=== PATIENT | female | born 1930 | race Asian ===

== ENCOUNTER 2018-07-17 06:11 | Inpatient (IN) | payer MEDICARE, OTHER ==
[2018-07-17] VITALS (8 sets, daily range): BP systolic 113–191; BP diastolic 70–116
[~2018-07-17] VITALS: Ht 167.6 cm; Wt 69.9 kg
--- NOTE | 2018-07-17 06:23 | NUR ---
ED Nurse Note: Pt was BIBA from SNF. C/O SOB today. Pt is a/o x 3. pt is on none brweathing mask 8L/min with O2 sat @ 94 %. IV at right FA/18 G. incontinent. BP 191/92. Dr. Galicia at bed side, waitng for orders.
[2018-07-17] MEDS ORDERED: Solu-MEDROL 125mg Inj IVP ONE (06:30)
[2018-07-17] MEDS ORDERED: TENORMIN100 MG ORAL (06:32)
[2018-07-17] MEDS ORDERED: LOSARTAN POTAS100 MG ORAL (06:32)
[2018-07-17] MEDS ORDERED: ASPIR 8181 MG ORAL (06:32)
[2018-07-17] MEDS ORDERED: FUROSEMIDE20 M1 ORAL (06:32)
[2018-07-17] MEDS ORDERED: LIPITOR20 MG ORAL (06:32)
[2018-07-17] MEDS ORDERED: AMIODARONE HCL100 MG ORAL (06:32)
[2018-07-17] MEDS ORDERED: TAMSULOSIN HCL0.4 MG ORAL (06:32)
[2018-07-17] MEDS ORDERED: LATANOPROST2.5 ML BOTH EYES (06:32)
[2018-07-17] MEDS ORDERED: DORZOLAMIDE 2%10 ML OP (06:32)
[2018-07-17] MEDS ORDERED: COLACE100 MG ORAL (06:32)
[2018-07-17] MEDS ORDERED: VITAMIN D1000 UNI1 ORAL (06:32)
[2018-07-17] MEDS ORDERED: RANEXA500 MG ORAL (06:32)
[2018-07-17] MEDS ORDERED: URECHOLINE50 MG ORAL (06:32)
--- NOTE | 2018-07-17 06:39 | Emergency Room Report ---
History of Present Illness General Chief Complaint: Dyspnea/Respdistress Source: Patient Present Illness HPI Patient presents emergency department today complaint cough congestion shortness of breath. Patient was at a [facility]. Patient apparently was admitted there because of a fall and possible fractures. Patient had failure to thrive. Patient was at [facility]. Patient symptoms apparently progressively became worse last night. Patient has limited Occitan speaking abilities. No other complaints are noted. Symptoms noted to be severe.No other modifying factors. No other associated signs and symptoms. No other complaints were noted. Allergies: Coded Allergies: No Known Allergies (Unverified , 07/17/18) Patient History Past Medical History: CAD, CHF, AFib Past Surgical History: other - Abdominal surgery Social History Narrative stays at a [facility] Last Menstrual Period: PEARL Now: No Reviewed Nursing Documentation: PMH: Agreed; PSxH: Agreed Nursing Documentation-PMH Hx Cardiac Problems: Yes - afib, CHF, PVD, CAD Hx Hypertension: Yes Review of Systems All Other Systems: limited - Patient poor histori Physical Exam Vital Signs Date Time Temp Pulse Resp B/P (MAP) Pulse Ox O2 Delivery O2 Flow Rate FiO2 07/17/18 06:12 98.1 87 24 188/108 98 Non-Rebreather 8.0 Sp02 EP Interpretation: reviewed, normal General Appearance: alert, moderate distress Head: atraumatic Eyes: bilateral eye normal inspection ENT: normal ENT inspection, hearing grossly normal, normal voice Neck: normal inspection, full range of motion, supple, no bony tend Respiratory: respiratory distress, decreased breath sounds, accessory muscle use, wheezing, expiration, inspiration Cardiovascular #1: regular rate, rhythm, no edema Gastrointestinal: normal inspection, normal bowel sounds, non tender, soft, no guarding, no hernia Genitourinary: no CVA tenderness Musculoskeletal: normal inspection, normal range of motion Neurologic: alert, responsive, other - Limited exam Psychiatric: depressed affect Skin: normal inspection, normal color, no rash Procedures Critical Care Time Critical Care Time Patient had a critical medical condition which untreated could potentially result in life or limb threatening injury. Total critical care time excluding procedures was approximately 45 minutes. Medical Decision Making Diagnostic Impression: Primary Impression: Respiratory distress Additional Impression: Pneumonia ER Course Patient presents emergency department today complaining of shortness of breath. Differential diagnoses include acute pneumonia, CHF, acute coronary syndrome, pneumothorax, asthma, COPD flare, just to name a few. Patient's laboratory workup shows evidence of CHF. Chest x-ray shows evidence of pneumonia. Because of patient's severe distress patient was placed on BiPAP with improvement in symptoms. Blood cultures are obtained and patient was started on IV antibiotics. Case was discussed with Dr. Lars Rebolledo who saw the patient emergency department. Patient will be admitted to the [facility] for further treatment. Labs Test 07/17/18 06:42 07/17/18 07:05 White Blood Count 9.8 K/UL (4.8-10.8) Red Blood Count 3.02 M/UL (4.20-5.40) Hemoglobin 9.3 G/DL (12.0-16.0) Hematocrit 29.6 % (37.0-47.0) Mean Corpuscular Volume 98 FL (80-99) Mean Corpuscular Hemoglobin 30.7 PG (27.0-31.0) Mean Corpuscular Hemoglobin Concent 31.4 G/DL (32.0-36.0) Red Cell Distribution Width 16.0 % (11.6-14.8) Platelet Count 177 K/UL (150-450) Mean Platelet Volume 6.2 FL (6.5-10.1) Neutrophils (%) (Auto) % (45.0-75.0) Lymphocytes (%) (Auto) % (20.0-45.0) Monocytes (%) (Auto) % (1.0-10.0) Eosinophils (%) (Auto) % (0.0-3.0) Basophils (%) (Auto) % (0.0-2.0) Sodium Level 145 MMOL/L (136-145) Potassium Level 3.4 MMOL/L (3.5-5.1) Chloride Level 109 MMOL/L (98-107) Carbon Dioxide Level 29 MMOL/L (21-32) Anion Gap 8 mmol/L (5-15) Blood Urea Nitrogen 19 mg/dL (7-18) Creatinine 0.6 MG/DL (0.55-1.30) Estimat Glomerular Filtration Rate mL/min (>60) Glucose Level 147 MG/DL (74-106) Lactic Acid Level 1.30 mmol/L (0.4-2.0) Calcium Level 8.0 MG/DL (8.5-10.1) Total Bilirubin 0.4 MG/DL (0.2-1.0) Aspartate Amino Transf (AST/SGOT) 30 U/L (15-37) Alanine Aminotransferase (ALT/SGPT) 17 U/L (12-78) Alkaline Phosphatase 174 U/L (46-116) Troponin I 0.015 ng/mL (0.000-0.056) Pro-B-Type Natriuretic Peptide 4699 pg/mL (0-125) Total Protein 5.5 G/DL (6.4-8.2) Albumin 2.1 G/DL (3.4-5.0) Globulin 3.4 g/dL Albumin/Globulin Ratio 0.6 (1.0-2.7) Lipase 105 U/L (73-393) Urine Color Yellow Urine Appearance Clear Urine pH 7 (4.5-8.0) Urine Specific Seale 1.005 (1.005-1.035) Urine Protein 1+ (NEGATIVE) Urine Glucose (UA) Negative (NEGATIVE) Urine Ketones Negative (NEGATIVE) Urine Blood Negative (NEGATIVE) Urine Nitrite Negative (NEGATIVE) Urine Bilirubin Negative (NEGATIVE) Urine Urobilinogen Normal MG/DL (0.0-1.0) Urine Leukocyte Esterase 2+ (NEGATIVE) Urine RBC 0 /HPF (0 - 2) Urine WBC 10-15 /HPF (0 - 2) Urine Squamous Epithelial Cells Few /LPF (NONE/OCC) Urine Bacteria Occasional /HPF (NONE) Urine Yeast Few /HPF (NONE) EKG Diagnostic Results Rate: normal Rhythm: NSR ST Segments: other - Nonspecific ST segment changes. Rhythm Strip Diag. Results EP Interpretation: yes Rate: 82 Rhythm: NSR, no PVC's, no ectopy Chest X-Ray Diagnostic Results Chest X-Ray Diagnostic Results : Chest X-Ray Ordered: Yes # of Views/Limited/Complete: 1 View Indication: Shortness of Breath Interpretation: no pneumothorax, other - right infiltrate, cardiomegaly Impression: Other - pneumonia, mild chf Electronically Signed by: Electronically signed by Jay Leigh MD Last Vital Signs Date Time Temp Pulse Resp B/P (MAP) Pulse Ox O2 Delivery O2 Flow Rate FiO2 07/17/18 06:12 98.1 87 24 188/108 98 Non-Rebreather 8.0 Status: improved Disposition: ADMITTED INPATIENT Condition: Serious Jay Leigh MD Jul 17, 2018 06:39
--- NOTE | 2018-07-17 06:50 | NUR ---
ED Nurse Note: Blood sample collected and sent to Lab.
--- NOTE | 2018-07-17 06:56 | NUR ---
ED Nurse Note: Meds given as ordered.
--- NOTE | 2018-07-17 07:00 | NUR ---
ED Nurse Note: Urine sample collected and sent to Lab.
[2018-07-17] MEDS: Albuterol ud Inhalation HHN SCH ×3 (07:05→07:28)
[2018-07-17] MEDS: Ipratropium 0.02% Inh Soln 2.5ml UD HHN SCH ×3 (07:05→07:28)
[2018-07-17 07:06] LABS: HEMATOCRIT 29.6 % (37.0-47.0); HEMOGLOBIN 9.3 G/DL (12.0-16.0); MEAN CORPUSCULAR VOLUME 98 FL (80-99); PLATELET COUNT 177 K/UL (150-450); RED BLOOD COUNT 3.02 M/UL (4.20-5.40); WHITE BLOOD COUNT 9.8 K/UL (4.8-10.8)
--- NOTE | 2018-07-17 07:12 | NUR ---
HAND-OFF: Report given to Tyree VIDAL/ ANTOINE for continue care. Pt is A/O X 3-4.
[2018-07-17 07:20] LABS: ANION GAP 8 mmol/L (5-15); BLOOD UREA NITROGEN 19 mg/dL (7-18); CARBON DIOXIDE 29 MMOL/L (21-32); CHLORIDE 109 MMOL/L (98-107); CREATININE 0.6 MG/DL (0.55-1.30); POTASSIUM 3.4 MMOL/L (3.5-5.1); SODIUM 145 MMOL/L (136-145)
[2018-07-17 07:26] LABS: ALANINE AMINOTRANSFERASE 17 U/L (12-78); ALBUMIN 2.1 G/DL (3.4-5.0); ALBUMIN/GLOBULIN RATIO 0.6 (1.0-2.7); ALKALINE PHOSPHATASE 174 U/L (46-116); ASPARTATE AMINO TRANSFERASE 30 U/L (15-37); BILIRUBIN,TOTAL 0.4 MG/DL (0.2-1.0)
[2018-07-17 07:29] LABS: APPEARANCE,URINE CLEAR; BILIRUBIN, URINE NEGATIVE (NEGATIVE); GLUCOSE, URINE (UA) NEGATIVE (NEGATIVE); KETONES,URINE NEGATIVE (NEGATIVE); LEUKOCYTE ESTERASE ,URINE 2+ (NEGATIVE); NITRITE,URINE NEGATIVE (NEGATIVE); PH,URINE 7 (4.5-8.0); PROTEIN,URINE 1+ (NEGATIVE); UROBILINOGEN,URINE NORMAL MG/DL (0.0-1.0)
--- NOTE | 2018-07-17 07:36 | NUR ---
ED Nurse Note: Received patient resting in bed. pt, Irish speaker, aao x4, on non-breather mast with 10L/min with 100% saturation. skin clean and intact but Rt buttock pressure ulcer stage 2 and Lt buttock stage 1 noted. pt was explained that she will be transferred to SDU and agreed with it.
[2018-07-17 07:40] LABS: COLOR,URINE YELLOW
--- NOTE | 2018-07-17 08:00 | NUR ---
ED Nurse Note: Pt is on Bi-pap setting 27/09, 60% by RT
--- NOTE | 2018-07-17 08:14 | NUR ---
ED Nurse Note: Called pharmacy to verify medications order. per pharmacy, the medications orders are for SDU so we should hold them until patient goes up to SDU floor.
--- NOTE | 2018-07-17 08:20 | NUR ---
ED Nurse Note: Nurse verified with ERMD that pt has new unverified medications orders. ERMD was aware of it and ordered new IV ATB for ER and it was initiated.
[2018-07-17] MEDS ORDERED: Azithromycin 500 MG in D5W 275 ML IVPB ONE (08:30)
[2018-07-17] MEDS ORDERED: Piperacillin/Tazobactam 4.5 GM in NS 110 ML IVPB ONE (08:30)
--- NOTE | 2018-07-17 09:09 | NUR ---
ED Nurse Note: Son at bedside. son informed about pt's condition and transferring.
--- NOTE | 2018-07-17 09:39 | NUR ---
NURSE NOTES:WOUND CARE NOTES:Pt presented on admission with DTPI sacrum extending down to R and L lower buttocks with (2) openings at R of sacral wound. Base of wound indurated, maroon in colour with red tinged borders . Both openings beefy red in colour with minimal serosanguineous exudate .No odor noted. Pt verbalized tenderness when sacral area minimally palpated. Non-blanchable erythema without induration noted periwound.(L)14.5cm x (W)11cm. Both heels are fluctuant with non-blanchable erythema. Pt verbalized tenderness when both heels are minimally palpated. Pt is alert and has been educated on wound prevention. Pt encouraged to frequently reposition side to side at least hourly. Tx.Plan:Apply Triad Paste to Sacrum/ buttocks .Cover Sacral area with Optifoam drsg .Change every 3 days and prn. Apply Cavilon Skin Barrier to both heels. Cover each heel with Optifoam drsg.Change every 7 days and prn. Encourage and assist with repositioning at least every 2hours or as tolerated. Off-load heels with Pillow. APM/ANA PAULA mattress.
--- NOTE | 2018-07-17 11:30 | NUR ---
ED Nurse Note: Report given to ANTOINE Thomason.
--- NOTE | 2018-07-17 12:22 | Diagnostic Imaging Report ---
Indication: Cough Technique: One view of the chest Comparison: none Findings: Heart is enlarged. The aorta is elongated tortuous and calcified. There are granulomatous calcifications projected in the mediastinum. There is haziness of the right lung base, likely pleural fluid. The left hemidiaphragm is obscured Impression: Cardiomegaly Suspect right-sided pleural effusion Left basilar opacification, likely pleural fluid and/or parenchymal consolidation
--- NOTE | 2018-07-17 12:24 | NUR ---
ED Nurse Note: Pt transferred to SDU with 1 integration technician, 1 RN, 1 RT in stable condition.
--- NOTE | 2018-07-17 12:45 | History and Physical Report ---
DATE OF ADMISSION: 07/17/2018 CHIEF COMPLAINT: Shortness of breath. HISTORY OF PRESENT ILLNESS: The patient is an 88-year-old female. She has a history of atrial fibrillation, vertebral compression fractures, ischemic cardiomyopathy, PVD, and CHF. She was transferred from a [facility] facility with complaints of shortness of breath. On evaluation in the emergency room, the patient was noted to be wheezing and tachypneic. She was started on breathing treatments. She was given supplemental oxygen. Her blood pressure was elevated at 191. She received additional dose of intravenous steroids. Currently, she is more comfortable. Blood pressure remains markedly elevated though. PAST MEDICAL HISTORY: As above. PAST SURGICAL HISTORY: None. CURRENT MEDICATIONS: Reconciled and reviewed. ALLERGIES: None. FAMILY HISTORY: None. SOCIAL HISTORY: There is no known history of tobacco, ethanol, or drugs. REVIEW OF SYSTEMS: GENERAL: No fever or chills. HEENT: No headaches or visual changes. CARDIOPULMONARY: Positive chest pain and shortness of breath. Positive tightness. GASTROINTESTINAL: No nausea or vomiting. GENITOURINARY: No urgency or frequency. MUSCULOSKELETAL: No joint pain or swelling. NEUROLOGIC: No evidence of seizures. PHYSICAL EXAMINATION: VITAL SIGNS: Temperature 98, pulse 83, respirations 24, blood pressure 191/92, and the patient is saturating 98% on non-rebreather. GENERAL: The patient well-developed, no apparent distress. There is some slight accessory muscle use. The patient appears comfortable. NECK: Supple. HEART: Regular rate and rhythm. LUNGS: Significant for bilateral wheezes with poor air movement. . ABDOMEN: Soft, nontender, and nondistended. EXTREMITIES: Without clubbing, cyanosis, or edema. LABORATORY AND DIAGNOSTIC DATA: Urine is pending. White count was 10, hemoglobin 9.3, hematocrit 29, and platelets of 177. Sodium 145, potassium 3.4, chloride 109, bicarb 29, BUN 19, creatinine 0.6. Troponin is 0.015. Natriuretic peptide level was 4700. X-ray results are pending. EKG showed normal sinus rhythm. ASSESSMENT: This is an elderly female with complaints of shortness of breath suspect secondary to asthma exacerbation, cannot rule out some component of congestive heart failure. PROBLEM LIST: 1. Asthma exacerbation. 2. CHF exacerbation. 3. Rule out acute coronary syndrome. 4. Atrial fibrillation. 5. Hypertensive urgency. 6. History of hyperlipidemia and hypertensive heart disease. PLAN: Continue steroid. Admit to monitored bed. Intravenous steroids. Respiratory treatments. Empiric antibiotics. Pulmonary and Cardiology consultations. Titrate antihypertensive regimen. The patient's status is currently guarded. Lars Rebolledo M.D. DR: EDGAR JOB#: [id number] CC:
[2018-07-17] MEDS: Bethanechol 25mg Tab ORAL SCH ×2 (13:00→18:00)
[2018-07-17] MEDS: Solu-MEDROL 125mg Inj IVP SCH ×2 (14:48→22:05)
[2018-07-17] MEDS: Albuterol/Ipratropium 3ml neb HHN SCH ×3 (16:11→23:04)
[2018-07-17] MEDS: cefTRIAXone 1 GM in D5W 55 ML IVPB SCH (17:07)
--- NOTE | 2018-07-17 17:18 | Consultation ---
History of Present Illness General Date patient seen: Jul 17, 2018 Chief Complaint: Dyspnea/Respdistress Reason for Consultation: sacral wound Present Illness HPI 88 year old female with multiple medical comorbidities who is a prison resident presented with SOB and congestion. Admitted for medical care and management. On admission noted to have sacral wound. Surgery called to evaluate and assist with care. Patient seen, chart reviewed, patient examined. Allergies: Coded Allergies: No Known Allergies (Unverified , 07/17/18) Medication History Scheduled Amiodarone Hcl (Amiodarone Hcl), 200 MG ORAL DAILY, (Reported) Aspirin* (Aspir 81*), 81 MG ORAL DAILY, (Reported) Atenolol (Tenormin), 50 MG ORAL DAILY, (Reported) Atorvastatin Calcium* (Lipitor*), 20 MG ORAL BEDTIME, (Reported) Bethanechol Chl* (Urecholine*), 50 MG ORAL THREE TIMES A DAY, (Reported) Cholecalciferol (Vitamin D3)* (Vitamin D*), 5,000 UNITS ORAL DAILY, (Reported) Docusate Sodium* (Colace*), 100 MG ORAL DAILY, (Reported) Docusate Sodium* (Colace*), 100 MG ORAL DAILY, (Reported) Furosemide* (Lasix*), 20 MG ORAL DAILY, (Reported) Latanoprost* (Xalatan*), 1 DROP BOTH EYES BEDTIME, (Reported) Losartan Potassium (Losartan Potassium), 100 MG ORAL DAILY, (Reported) Ranolazine* (Ranexa*), 500 MG ORAL EVERY 12 HOURS, (Reported) Tamsulosin Hcl (Tamsulosin Hcl*), 0.4 MG ORAL BEDTIME, (Reported) Miscellaneous Medications Dorzolamide HCl/Pf (Dorzolamide 2% Eye Drop), 10 ML OP, (Reported) Patient History Limited by: medical condition History Provided By: Medical Record, PMD Healthcare decision maker Rodolfo Johansen/Son Resuscitation status Full Code Advanced Directive on File Past Medical/Surgical History Past Medical/Surgical History: (1) Sacral decubitus ulcer (2) SOB (shortness of breath) (3) Respiratory distress (4) Pneumonia (5) Failure to thrive Review of Systems ROS Narrative cannot obtain given medical condition Physical Exam General Appearance: no apparent distress Lines, tubes and drains: peripheral HEENT: mucous membranes moist Neck: normal inspection Respiratory/Chest: no respiratory distress, no accessory muscle use Cardiovascular/Chest: normal rate Abdomen: soft, no organomegaly, no mass Extremities: other Skin Exam: other Neurologic: alert Last 24 Hour Vital Signs Date Time Temp Pulse Resp B/P (MAP) Pulse Ox O2 Delivery O2 Flow Rate FiO2 07/17/18 16:30 45 07/17/18 16:00 Bi-pap 07/17/18 16:00 71 07/17/18 15:15 80 24 97 Facial 60 07/17/18 15:10 88 16 100 Bi-pap 60 07/17/18 15:00 71 16 100 Bi-pap 60 07/17/18 14:14 60 07/17/18 13:20 82 20 99 Facial 60 07/17/18 12:54 100 07/17/18 12:54 Bi-pap 07/17/18 12:30 97.7 77 22 113/73 100 Bi-pap 100 07/17/18 12:22 97.5 77 16 122/70 100 Bi-pap 100 07/17/18 12:22 98.0 77 16 128/70 100 Bi-pap 100 07/17/18 11:00 97.5 77 16 156/77 100 Bi-pap 100 07/17/18 10:46 80 14 100 Facial 100 07/17/18 09:08 98.2 82 17 125/70 100 Bi-pap 100 07/17/18 08:40 88 20 100 Facial 100 07/17/18 08:00 60 07/17/18 07:45 90 20 100 Room Air 21 07/17/18 07:30 98.2 80 24 156/80 100 Non-Rebreather 10.0 07/17/18 07:30 78 24 93 Room Air 21 07/17/18 07:30 88 18 99 Room Air 21 07/17/18 07:30 78 24 Non-Rebreather 10.0 100 07/17/18 07:15 79 22 99 Room Air 21 07/17/18 07:10 82 18 100 Room Air 21 07/17/18 07:00 80 20 Room Air 21 07/17/18 07:00 80 20 100 Room Air 21 07/17/18 06:23 98.1 82 24 191/92 98 Non-Rebreather 8.0 07/17/18 06:23 83 24 Non-Rebreather 8.0 07/17/18 06:12 98.1 87 24 188/108 98 Non-Rebreather 8.0 Intake and Output 07/16/18 07/17/18 19:00 07:00 Intake Total 0 ml Balance 0 ml Intake Oral 0 ml Laboratory Tests Test 07/17/18 06:42 07/17/18 07:05 07/17/18 09:20 White Blood Count 9.8 K/UL (4.8-10.8) Red Blood Count 3.02 M/UL (4.20-5.40) L Hemoglobin 9.3 G/DL (12.0-16.0) L Hematocrit 29.6 % (37.0-47.0) L Mean Corpuscular Volume 98 FL (80-99) Mean Corpuscular Hemoglobin 30.7 PG (27.0-31.0) Mean Corpuscular Hemoglobin Concent 31.4 G/DL (32.0-36.0) L Red Cell Distribution Width 16.0 % (11.6-14.8) H Platelet Count 177 K/UL (150-450) Mean Platelet Volume 6.2 FL (6.5-10.1) L Neutrophils (%) (Auto) % (45.0-75.0) Lymphocytes (%) (Auto) % (20.0-45.0) Monocytes (%) (Auto) % (1.0-10.0) Eosinophils (%) (Auto) % (0.0-3.0) Basophils (%) (Auto) % (0.0-2.0) Differential Total Cells Counted 100 Neutrophils % (Manual) 90 % (45-75) H Lymphocytes % (Manual) 9 % (20-45) L Monocytes % (Manual) 1 % (1-10) Eosinophils % (Manual) 0 % (0-3) Basophils % (Manual) 0 % (0-2) Band Neutrophils 0 % (0-8) Platelet Estimate Adequate Platelet Morphology Normal Hypochromasia 1+ Anisocytosis 1+ Sodium Level 145 MMOL/L (136-145) Potassium Level 3.4 MMOL/L (3.5-5.1) L Chloride Level 109 MMOL/L (98-107) H Carbon Dioxide Level 29 MMOL/L (21-32) Anion Gap 8 mmol/L (5-15) Blood Urea Nitrogen 19 mg/dL (7-18) H Creatinine 0.6 MG/DL (0.55-1.30) Estimat Glomerular Filtration Rate mL/min (>60) Glucose Level 147 MG/DL (74-106) H Lactic Acid Level 1.30 mmol/L (0.4-2.0) Calcium Level 8.0 MG/DL (8.5-10.1) L Total Bilirubin 0.4 MG/DL (0.2-1.0) Aspartate Amino Transf (AST/SGOT) 30 U/L (15-37) Alanine Aminotransferase (ALT/SGPT) 17 U/L (12-78) Alkaline Phosphatase 174 U/L (46-116) H Troponin I 0.015 ng/mL (0.000-0.056) Pro-B-Type Natriuretic Peptide 4699 pg/mL (0-125) H Total Protein 5.5 G/DL (6.4-8.2) L Albumin 2.1 G/DL (3.4-5.0) L Globulin 3.4 g/dL Albumin/Globulin Ratio 0.6 (1.0-2.7) L Lipase 105 U/L (73-393) Urine Color Yellow Urine Appearance Clear Urine pH 7 (4.5-8.0) Urine Specific Browns 1.005 (1.005-1.035) Urine Protein 1+ (NEGATIVE) H Urine Glucose (UA) Negative (NEGATIVE) Urine Ketones Negative (NEGATIVE) Urine Blood Negative (NEGATIVE) Urine Nitrite Negative (NEGATIVE) Urine Bilirubin Negative (NEGATIVE) Urine Urobilinogen Normal MG/DL (0.0-1.0) Urine Leukocyte Esterase 2+ (NEGATIVE) H Urine RBC 0 /HPF (0 - 2) Urine WBC 10-15 /HPF (0 - 2) H Urine Squamous Epithelial Cells Few /LPF (NONE/OCC) Urine Bacteria Occasional /HPF (NONE) Urine Yeast Few /HPF (NONE) H Arterial Blood pH 7.436 (7.350-7.450) Arterial Blood Partial Pressure CO2 41.6 mmHg (35.0-45.0) Arterial Blood Partial Pressure O2 310.9 mmHg (75.0-100.0) H Arterial Blood HCO3 27.4 mmol/L (22.0-26.0) H Arterial Blood Oxygen Saturation 98.7 % (95-100) Arterial Blood Base Excess 2.9 (-2-2) H Mark Test Positive Microbiology Date/Time Source Procedure Growth Status 07/17/18 08:00 Rectum Received Height (Feet): 5 Height (Inches): 6.00 Weight (Pounds): 154 Medications Current Medications Medications (Trade) Dose Ordered Sig/Sukhi Route PRN Reason Start Time Stop Time Status Last Admin Dose Admin Albuterol/ Ipratropium (Albuterol/ Ipratropium) 3 ml Q4HRT HHN 07/17/18 15:00 07/22/18 14:59 07/17/18 16:11 Amiodarone HCl (Cordarone) 200 mg DAILY ORAL 07/18/18 09:00 08/17/18 08:59 Aspirin (Ecotrin) 81 mg DAILY ORAL 07/18/18 09:00 08/17/18 08:59 Atenolol (Tenormin) 50 mg DAILY ORAL 07/18/18 09:00 08/17/18 08:59 Atorvastatin Calcium (Lipitor) 20 mg BEDTIME ORAL 07/17/18 21:00 08/16/18 20:59 Bethanechol Chloride (Urecholine) 50 mg THREE TIMES A DAY ORAL 07/17/18 13:00 08/16/18 12:59 Ceftriaxone Sodium 1 gm/ Dextrose 55 ml @ 110 mls/hr Q24H IVPB 07/17/18 15:00 07/24/18 14:59 07/17/18 17:07 Docusate Sodium (Colace) 100 mg DAILY ORAL 07/18/18 09:00 08/17/18 08:59 Furosemide (Lasix) 20 mg DAILY ORAL 07/18/18 09:00 08/17/18 08:59 Heparin Sodium (Porcine) (Heparin 5000 units/ml) 5,000 units EVERY 12 HOURS SUBQ 07/17/18 21:00 08/16/18 20:59 Latanoprost (Xalatan) 1 drop BEDTIME BOTH EYES 07/17/18 21:00 08/16/18 20:59 Losartan Potassium (Cozaar) 100 mg DAILY ORAL 07/18/18 09:00 08/17/18 08:59 Methylprednisolone Sodium Succinate (Solu-MEDROL) 60 mg EVERY 8 HOURS IVP 07/17/18 14:00 08/16/18 13:59 3/4/19 14:48 Ranolazine (Ranexa ER 500mg) 500 mg EVERY 12 HOURS ORAL 07/17/18 21:00 08/16/18 20:59 Tamsulosin HCl (Flomax) 0.4 mg BEDTIME ORAL 07/17/18 21:00 08/16/18 20:59 Vitamin D (Vitamin D) 5,000 intlu DAILY ORAL 07/18/18 09:00 08/17/18 08:59 Assessment/Plan Problem List: (1) Sacral decubitus ulcer Assessment & Plan: Pt presented on admission with DTPI sacrum extending down to R and L lower buttocks with (2) openings at R of sacral wound. Base of wound indurated, maroon in colour with red tinged borders . Both openings beefy red in colour with minimal serosanguineous exudate .No odor noted. Pt verbalized tenderness when sacral area minimally palpated. Non-blanchable erythema without induration noted periwound.(L)14.5cm x (W)11cm. Both heels are fluctuant with non-blanchable erythema. Pt verbalized tenderness when both heels are minimally palpated. Pt is alert and has been educated on wound prevention. Pt encouraged to frequently reposition side to side at least hourly. Tx.Plan: Apply Triad Paste to Sacrum/ buttocks .Cover Sacral area with Optifoam drsg .Change every 3 days and prn. Apply Cavilon Skin Barrier to both heels. Cover each heel with Optifoam drsg.Change every 7 days and prn. Encourage and assist with repositioning at least every 2hours or as tolerated. Off-load heels with Pillow. APM/ANA PAULA mattress. ICD Codes: L89.159 - Pressure ulcer of sacral region, unspecified stage SNOMED: 130647871 (2) Failure to thrive Assessment & Plan: Hypoalbuminemia Nutritional status poor will need improved nutrition for proper wound healing nutrition consult for goals diet as tolerated encourage oral intake. SNOMED: 67721246 Qualifiers: Qualified Codes: R62.7 - Adult failure to thrive VickeyRob knight Jul 17, 2018 17:18
--- NOTE | 2018-07-17 18:52 | NUR ---
CASE MANAGEMENT: INITIAL REVIEW 88 YO F JUDI FROM [facility] CC: DYSPNEA PMHx: CAD. CHF. A FIB. SI:DYSPNEA. T 98.1 HR 87 RR 24 B/P 188/108 SATS 98% ON 8L/NRB K 3.4 CL 109 BUN 19 GLU 147 ALP 174 BNP 4699 IS: ELADIO NEGRO HHN X1 SOLU MEDROL IV X1 PATIENT ADMITTED TO STEP DOWN UNIT 07/17/2018 @ 0649 DCP: PATIENT TO BE DISCHARGED TO SNF ONCE MEDICALLY CLEARED. PLAN OF CARE: WOUND CARE Continue steroid Respiratory treatments Addendum: 07/17/18 at 2046 by Mirna Fragoso CM INTERQUAL
--- NOTE | 2018-07-17 19:20 | NUR ---
HAND-OFF: Report given to Veena Chopra RN.
--- NOTE | 2018-07-17 19:30 | NUR ---
NURSE NOTES: Received Pt is resting on the bed and family stay at bedside. On BiPAP 15/5 FiO2 45 % and SaO2 99% noted. Denied pain at this time. IV site intact and no sign of infiltration. Pt has multiple bruise on body. Dressing is clean and dry on wound area. Pt has both hearing aids and cell phone and stone breaker. On Quartet mattress and wound management. Changed position. Placed fall precaution. Will continue to care plan.
[2018-07-17] MEDS: Tamsulosin 0.4mg cap ORAL SCH (20:58)
[2018-07-17] MEDS: Latanoprost 0.005% Opth 2.5ml Soln BOTH EYES SCH (20:58)
[2018-07-17] MEDS: Atorvastatin 20mg tab ORAL SCH (20:59)
[2018-07-17] MEDS ORDERED: Ranolazine 500mg tab ORAL SCH (21:00)
[2018-07-17] MEDS: Heparin 5000 units/ml inj SUBQ SCH (21:00)
[2018-07-18] VITALS: BP 140/73
--- NOTE | 2018-07-18 01:01 | NUR ---
HAND-OFF: Report given to ANTOINE Conti. Pt is resting on the bed and no sign of acute distress noted.
--- NOTE | 2018-07-18 01:25 | NUR ---
HAND-OFF: Report given to ANTOINE Colon. Pt is resting on the bed and no sign of acute distress noted.
--- NOTE | 2018-07-18 01:30 | NUR ---
NURSE NOTES: Received patient from ANTOINE [place]. Asleep in bed comfortably. on NC 2L with no respiratory distress noted. o2 saturation 98%.SR on monitor. vs stable. afebrile. no sign of pain at this time. kept skin clean and dry. on Quartet mattress for skin management.keep patient comfortable.
[2018-07-18] MEDS: Albuterol/Ipratropium 3ml neb HHN SCH ×6 (03:05→23:30)
[2018-07-18 04:00] VITALS: BP 142/74
[2018-07-18 04:38] LABS: HEMATOCRIT 27.1 % (37.0-47.0); HEMOGLOBIN 8.4 G/DL (12.0-16.0); MEAN CORPUSCULAR VOLUME 98 FL (80-99); PLATELET COUNT 157 K/UL (150-450); RED BLOOD COUNT 2.76 M/UL (4.20-5.40); RED CELL DISTRIBUTION WIDTH 15.8 % (11.6-14.8); WHITE BLOOD COUNT 5.1 K/UL (4.8-10.8)
--- NOTE | 2018-07-18 05:00 | Consultation ---
DATE OF CONSULTATION: 07/17/2018 CARDIOLOGY CONSULT CONSULTING PHYSICIAN: Lars Rebolledo M.D. REFERRING PHYSICIAN: Zoran Caldwell M.D. REASON: Congestive heart failure. HISTORY OF PRESENT ILLNESS: This is an 88-year-old Sami female residing at a correction facility. She has a history of ischemic cardiomyopathy with congestive heart failure and paroxysmal atrial fibrillation. She is increasingly congested and short of breath early this morning and transferred from her correction facility. She was evaluated in the emergency room and noted to be tachypneic with audible wheezing, elevated blood pressure reading, and evidence of acute congestive heart failure prompting this consultation. PAST MEDICAL HISTORY: Osteoporosis, osteoarthritis, vertebral compression fractures, paroxysmal atrial fibrillation, hypertension, peripheral artery disease, ischemic cardiomyopathy, history of congestive heart failure, and asthma. ALLERGIES: None. MEDICATIONS PRIOR TO ADMISSION: Reviewed and reconciled. FAMILY HISTORY: Not known. SOCIAL HISTORY: No record of prior smoking, alcohol, or substance abuse. REVIEW OF SYSTEMS: No fevers or chills noted. She did receive a flu vaccination this year. No history of diabetes or thyroid disorder. No history of seizures or prior stroke. She does have dementia. She has had some chest discomfort associated with difficulty breathing. She has not had any melena, bright red blood per rectum, nausea, or vomiting. She has not had any dysuria or foul-smelling urine noted. PHYSICAL EXAMINATION: VITAL SIGNS: Afebrile. Blood pressure 191/92, pulse 83, and respiratory rate 24. HEENT: Conjunctivae are pink. Sclerae anicteric. Oropharynx clear. NECK: Supple. Accessory muscle use noted. LUNGS: Coarse breath sounds and rhonchi. CARDIAC: Regular rhythm and rate. Normal S1 and S2 with a fourth heart sound and a 1/6 systolic murmur at the base. ABDOMEN: Soft and nontender. EXTREMITIES: No clubbing, cyanosis, or edema. Decreased capillary refill noted. LABORATORY AND IMAGING DATA: White count 10 and hemoglobin 9.3. BUN 19, creatinine 0.6, sodium 145, potassium 3.4, and bicarb 29. Troponin 0.015. Natriuretic peptide 4700. Chest x-ray with cardiomegaly, pleural effusion on the right, and consolidation on the left. There is a possible lung nodule. EKG reveals sinus rhythm, 82 beats per minute and nonspecific ST-T wave change. IMPRESSION: 1. Acute respiratory failure. 2. Acute bronchospasm. 3. Acute on chronic diastolic congestive heart failure. 4. Pleural effusion. 5. Healthcare-acquired pneumonia. 6. Ischemic and hypertensive cardiomyopathy. 7. Hypertensive urgency. 8. Paroxysmal atrial fibrillation. PLAN: 1. Respiratory hygiene. 2. Possible thoracentesis. 3. Broad-spectrum antimicrobials. 4. Replace electrolytes as needed. 5. Cautious diuresis. 6. Titrate antihypertensives and anti-anginals 7. Aspiration precautions and swallow evaluation. 8. DVT and stress ulcer prophylaxis. 9. No plans for anticoagulation in this age group with poor performance status. 10. Reassess amiodarone therapy since not maintaining sinus rhythm. Zoran Caldwell M.D. DR: VIOLA JOB#: [id number] CC: JENNIFER
[2018-07-18 05:13] LABS: ALANINE AMINOTRANSFERASE 12 U/L (12-78); ALBUMIN/GLOBULIN RATIO 0.6 (1.0-2.7); ALKALINE PHOSPHATASE 148 U/L (46-116); ANION GAP 7 mmol/L (5-15); ASPARTATE AMINO TRANSFERASE 25 U/L (15-37); BILIRUBIN,TOTAL 0.4 MG/DL (0.2-1.0); BLOOD UREA NITROGEN 23 mg/dL (7-18); CARBON DIOXIDE 29 MMOL/L (21-32); CHLORIDE 108 MMOL/L (98-107); CREATININE 0.7 MG/DL (0.55-1.30); POTASSIUM 3.2 MMOL/L (3.5-5.1); SODIUM 144 MMOL/L (136-145)
[2018-07-18] MEDS: Solu-MEDROL 125mg Inj IVP SCH (06:29)
--- NOTE | 2018-07-18 07:00 | NUR ---
NURSE NOTES: Notified Dr. DUFF regarding potassium 3.2. obtained potassium chloride 40meq once. will carry order.
--- NOTE | 2018-07-18 07:31 | NUR ---
HAND-OFF: Report given to JENELLE STOUT RN using SBAR. PATIENT REMAINS STABLE.
--- NOTE | 2018-07-18 07:32 | NUR ---
NURSE NOTES: Received patient in bed. On nasal cannula at 4LPM. Alert, verbal, call light within reach. Will continue plan of care.
--- NOTE | 2018-07-18 07:45 | NUR ---
CASE MANAGEMENT:REVIEW 07/18/18 SI: ACUTE RESP FAILURE AC/CHR CHF. PNEUMONIA 99.2 78 16 142/74 96% ON 2L/NC H/H-8.4/27.1 K-3.2 IS: IV ROCEPHIN Q24 IV SOLUMEDROL Q8HRS DUONEB HHN Q4HRS RTC AMIODARONE PO QD ASA PO QD ATENOLOL PO QD COZAAR PO QD IV LASIX QD K-DUR PO QD : STEP DOWN UNIT [facility]
[2018-07-18 08:00] VITALS: BP 106/73
[2018-07-18] MEDS: Bethanechol 25mg Tab ORAL SCH ×3 (08:20→17:29)
[2018-07-18] MEDS: Vitamin D 1000 IU Tab ORAL SCH (08:20)
[2018-07-18] MEDS: Heparin 5000 units/ml inj SUBQ SCH ×2 (08:25→21:18)
[2018-07-18] MEDS ORDERED: Docusate 100mg cap ORAL SCH (09:00)
--- NOTE | 2018-07-18 09:11 | NUR ---
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 [facility] TO ER CC: DYSPNEA/ RESPIRATORY DISTRESS SI:DYSPNEA VS: BP 188/108, P87, T 98.0, RR 24, SpO2 100 on Bi-pap FiO2 100 RBC 3.02, Hgb 9.3, Hct 29.6, Neutrophils% 90, Lymphocytes% 9, K 3.4, Chloride 109, BUN 19, Ca 8.0, Alk Phos 174, Glucose 147, Total Protein 5.5, Albumin 2.1, Urine WBC 10-15, Urine Protein 1+ CXR Impression: Cardiomegaly Suspect right-sided pleural effusion Left basilar opacification, likely pleural fluid and/or parenchymal consolidation IS:Urecholine Solu-MEDROL Ceftriaxone 110mls/hr Albuterol HHN Heparin Flomax Lipitor K-Dur SDU Status DC plan: Return to [facility]
[2018-07-18] MEDS: Losartan 50mg tab ORAL SCH (09:39)
[2018-07-18] MEDS: Aspirin EC 81mg tab ORAL SCH (09:39)
[2018-07-18] MEDS: Amiodarone 200mg tab ORAL SCH (09:39)
--- NOTE | 2018-07-18 09:40 | General Progress Note ---
Assessment/Plan Problem List: (1) Respiratory distress ICD Codes: R06.03 - Acute respiratory distress SNOMED: 293248274 (2) Pneumonia ICD Codes: J18.9 - Pneumonia, unspecified organism SNOMED: 404341566 (3) SOB (shortness of breath) ICD Codes: R06.02 - Shortness of breath SNOMED: 878724666 (4) Sacral decubitus ulcer ICD Codes: L89.159 - Pressure ulcer of sacral region, unspecified stage SNOMED: 484392722 (5) Failure to thrive SNOMED: 29891849 Status: stable, progressing Assessment/Plan iv abx wean steroids o2 resp rx id eval monitor cxr wound care diuresis per cards Subjective ROS Limited/Unobtainable: No Constitutional: Reports: weakness HEENT: Reports: no symptoms Cardiovascular: Reports: no symptoms Respiratory: Reports: cough, shortness of breath Gastrointestinal/Abdominal: Reports: no symptoms Genitourinary: Reports: no symptoms Neurologic/Psychiatric: Reports: no symptoms Endocrine: Reports: no symptoms Hematologic/Lymphatic: Reports: no symptoms Allergies: Coded Allergies: No Known Allergies (Unverified , 07/17/18) All Systems: reviewed and negative except above Subjective better today. decreased sob. getting cleaned. cxr with basilar opacity and pleural effusion. trop slightly higher. no chest pain remains on iv steroids. Objective Last 24 Hour Vital Signs Date Time Temp Pulse Resp B/P (MAP) Pulse Ox O2 Delivery O2 Flow Rate FiO2 07/18/18 08:00 75 13 100 Nasal Cannula 3.0 32 07/18/18 08:00 97.5 89 22 106/73 97 Nasal Cannula 2.0 45 07/18/18 07:50 76 12 96 Nasal Cannula 3.0 32 07/18/18 04:00 2.0 07/18/18 04:00 Nasal Cannula 2.0 07/18/18 04:00 99.2 86 16 142/74 96 Nasal Cannula 2.0 45 07/18/18 04:00 78 07/18/18 03:12 72 17 100 Nasal Cannula 3.0 32 07/18/18 03:05 69 17 98 Nasal Cannula 3.0 32 07/18/18 00:00 45 07/18/18 00:00 73 07/18/18 00:00 Bi-pap 07/18/18 00:00 97.5 74 18 140/73 99 Bi-pap 45 07/17/18 23:12 77 16 99 Nasal Cannula 4.0 36 07/17/18 23:05 72 16 100 Nasal Cannula 3.0 32 07/17/18 20:00 Bi-pap 07/17/18 20:00 76 07/17/18 20:00 98.0 74 18 125/75 99 Bi-pap 45 07/17/18 19:34 72 16 100 Bi-pap 40 07/17/18 19:24 70 16 100 Facial 40 07/17/18 19:23 69 16 100 Bi-pap 40 07/17/18 17:00 76 24 98 Facial 45 07/17/18 16:30 45 07/17/18 16:00 Bi-pap 07/17/18 16:00 71 07/17/18 16:00 97.9 78 18 146/116 100 Bi-pap 45 07/17/18 15:15 80 24 97 Facial 60 07/17/18 15:10 88 16 100 Bi-pap 60 07/17/18 15:00 71 16 100 Bi-pap 60 07/17/18 14:14 60 07/17/18 13:20 82 20 99 Facial 60 07/17/18 12:54 100 07/17/18 12:54 Bi-pap 07/17/18 12:30 97.7 77 22 113/73 100 Bi-pap 100 07/17/18 12:22 97.5 77 16 122/70 100 Bi-pap 100 07/17/18 12:22 98.0 77 16 128/70 100 Bi-pap 100 07/17/18 11:00 97.5 77 16 156/77 100 Bi-pap 100 07/17/18 10:46 80 14 100 Facial 100 Intake and Output 07/17/18 07/18/18 19:00 07:00 Intake Total 440 ml 200 ml Output Total 250 ml Balance 190 ml 200 ml Intake Oral 0 ml 200 ml IV Total 440 ml Output Urine Total 250 ml # Voids 1 Laboratory Tests 07/18/18 03:45: White Blood Count 5.1, Red Blood Count 2.76L, Hemoglobin 8.4L, Hematocrit 27.1L , Mean Corpuscular Volume 98, Mean Corpuscular Hemoglobin 30.4, Mean Corpuscular Hemoglobin Concent 31.0L, Red Cell Distribution Width 15.8H, Platelet Count 157, Mean Platelet Volume 5.9L, Neutrophils (%) (Auto) , Lymphocytes (%) (Auto) , Monocytes (%) (Auto) , Eosinophils (%) (Auto) , Basophils (%) (Auto) , Sodium Level 144, Potassium Level 3.2L, Chloride Level 108H, Carbon Dioxide Level 29, Anion Gap 7, Blood Urea Nitrogen 23H, Creatinine 0.7, Estimat Glomerular Filtration Rate , Glucose Level 147H, Calcium Level 8.0L , Magnesium Level 1.9, Total Bilirubin 0.4, Aspartate Amino Transf (AST/SGOT) 25 , Alanine Aminotransferase (ALT/SGPT) 12, Alkaline Phosphatase 148H, Troponin I 0.048, Total Protein 5.2L, Albumin 2.0L, Globulin 3.2, Albumin/Globulin Ratio 0.6L, Thyroid Stimulating Hormone (TSH) 0.348L Height (Feet): 5 Height (Inches): 6.00 Weight (Pounds): 154 General Appearance: WD/WN, alert Neck: supple Cardiovascular: normal rate, regular rhythm Respiratory/Chest: chest wall non-tender, crackles/rales, rhonchi - bilaterally Abdomen: normal bowel sounds, non tender, no organomegaly Edema: no edema noted Arm (L), no edema noted Arm (R), no edema noted Leg (L), no edema noted Leg (R), no edema noted Pedal (L), no edema noted Pedal (R), no edema noted Generalized Neurologic: alert Lars Rebolledo MD Jul 18, 2018 09:40
[2018-07-18 12:00] VITALS: BP 109/63
--- NOTE | 2018-07-18 12:34 | Surgery Progress Note ---
Surgery Progress Note Subjective Additional Comments no acute events. resting comfortable. pending nutrition eval Objective Last 24 Hour Vital Signs Date Time Temp Pulse Resp B/P (MAP) Pulse Ox O2 Delivery O2 Flow Rate FiO2 07/18/18 12:00 Nasal Cannula 4.0 07/18/18 12:00 97.9 87 24 109/63 98 Nasal Cannula 4.0 07/18/18 11:12 92 18 99 Nasal Cannula 4.0 36 07/18/18 11:03 82 12 97 Nasal Cannula 4.0 36 07/18/18 09:40 75 106/73 07/18/18 09:39 106/73 07/18/18 08:00 75 13 100 Nasal Cannula 3.0 32 07/18/18 08:00 97.5 89 22 106/73 97 Nasal Cannula 2.0 45 07/18/18 08:00 Nasal Cannula 4.0 07/18/18 07:50 76 12 96 Nasal Cannula 3.0 32 07/18/18 07:27 76 07/18/18 04:00 2.0 07/18/18 04:00 Nasal Cannula 2.0 07/18/18 04:00 99.2 86 16 142/74 96 Nasal Cannula 2.0 45 07/18/18 04:00 78 07/18/18 03:12 72 17 100 Nasal Cannula 3.0 32 07/18/18 03:05 69 17 98 Nasal Cannula 3.0 32 07/18/18 00:00 45 07/18/18 00:00 73 07/18/18 00:00 Bi-pap 07/18/18 00:00 97.5 74 18 140/73 99 Bi-pap 45 07/17/18 23:12 77 16 99 Nasal Cannula 4.0 36 07/17/18 23:05 72 16 100 Nasal Cannula 3.0 32 07/17/18 20:00 Bi-pap 07/17/18 20:00 76 07/17/18 20:00 98.0 74 18 125/75 99 Bi-pap 45 07/17/18 19:34 72 16 100 Bi-pap 40 07/17/18 19:24 70 16 100 Facial 40 07/17/18 19:23 69 16 100 Bi-pap 40 07/17/18 17:00 76 24 98 Facial 45 07/17/18 16:30 45 07/17/18 16:00 Bi-pap 07/17/18 16:00 71 07/17/18 16:00 97.9 78 18 146/116 100 Bi-pap 45 07/17/18 15:15 80 24 97 Facial 60 07/17/18 15:10 88 16 100 Bi-pap 60 07/17/18 15:00 71 16 100 Bi-pap 60 07/17/18 14:14 60 07/17/18 13:20 82 20 99 Facial 60 07/17/18 12:54 100 07/17/18 12:54 Bi-pap I&O Intake and Output 07/17/18 07/18/18 18:59 06:59 Intake Total 385 ml 255 ml Output Total 250 ml Balance 135 ml 255 ml Intake Oral 0 ml 200 ml IV Total 385 ml 55 ml Output Urine Total 250 ml # Voids 1 Dressing: dry Wound: clean Drains: none Cardiovascular: RSR Respiratory: clear Abdomen: soft, flat, non-tender, non-distended Extremities: no cyanosis, other Laboratory Tests Test 07/18/18 03:45 White Blood Count 5.1 K/UL (4.8-10.8) Red Blood Count 2.76 M/UL (4.20-5.40) L Hemoglobin 8.4 G/DL (12.0-16.0) L Hematocrit 27.1 % (37.0-47.0) L Mean Corpuscular Volume 98 FL (80-99) Mean Corpuscular Hemoglobin 30.4 PG (27.0-31.0) Mean Corpuscular Hemoglobin Concent 31.0 G/DL (32.0-36.0) L Red Cell Distribution Width 15.8 % (11.6-14.8) H Platelet Count 157 K/UL (150-450) Mean Platelet Volume 5.9 FL (6.5-10.1) L Neutrophils (%) (Auto) % (45.0-75.0) Lymphocytes (%) (Auto) % (20.0-45.0) Monocytes (%) (Auto) % (1.0-10.0) Eosinophils (%) (Auto) % (0.0-3.0) Basophils (%) (Auto) % (0.0-2.0) Sodium Level 144 MMOL/L (136-145) Potassium Level 3.2 MMOL/L (3.5-5.1) L Chloride Level 108 MMOL/L (98-107) H Carbon Dioxide Level 29 MMOL/L (21-32) Anion Gap 7 mmol/L (5-15) Blood Urea Nitrogen 23 mg/dL (7-18) H Creatinine 0.7 MG/DL (0.55-1.30) Estimat Glomerular Filtration Rate mL/min (>60) Glucose Level 147 MG/DL (74-106) H Calcium Level 8.0 MG/DL (8.5-10.1) L Magnesium Level 1.9 MG/DL (1.8-2.4) Total Bilirubin 0.4 MG/DL (0.2-1.0) Aspartate Amino Transf (AST/SGOT) 25 U/L (15-37) Alanine Aminotransferase (ALT/SGPT) 12 U/L (12-78) Alkaline Phosphatase 148 U/L (46-116) H Troponin I 0.048 ng/mL (0.000-0.056) Total Protein 5.2 G/DL (6.4-8.2) L Albumin 2.0 G/DL (3.4-5.0) L Globulin 3.2 g/dL Albumin/Globulin Ratio 0.6 (1.0-2.7) L Thyroid Stimulating Hormone (TSH) 0.348 uiU/mL (0.358-3.740) Plan Problems: (1) Sacral decubitus ulcer Assessment & Plan: Pt presented on admission with DTPI sacrum extending down to R and L lower buttocks with (2) openings at R of sacral wound. Base of wound indurated, maroon in colour with red tinged borders . Both openings beefy red in colour with minimal serosanguineous exudate .No odor noted. Pt verbalized tenderness when sacral area minimally palpated. Non-blanchable erythema without induration noted periwound.(L)14.5cm x (W)11cm. Both heels are fluctuant with non-blanchable erythema. Pt verbalized tenderness when both heels are minimally palpated. Pt is alert and has been educated on wound prevention. Pt encouraged to frequently reposition side to side at least hourly. Tx.Plan: Apply Triad Paste to Sacrum/ buttocks .Cover Sacral area with Optifoam drsg .Change every 3 days and prn. Apply Cavilon Skin Barrier to both heels. Cover each heel with Optifoam drsg.Change every 7 days and prn. Encourage and assist with repositioning at least every 2hours or as tolerated. Off-load heels with Pillow. APM/ANA PAULA mattress. (2) Failure to thrive Assessment & Plan: Hypoalbuminemia Nutritional status poor will need improved nutrition for proper wound healing nutrition consult for goals diet as tolerated encourage oral intake. Rob Payne Jul 18, 2018 12:34
--- NOTE | 2018-07-18 14:03 | NUR ---
RD ASSESSMENT & RECOMMENDATIONS SEE CARE ACTIVITY FOR COMPLETE ASSESSMENT DAILY ESTIMATED NEEDS: Needs based on Wounds, 59kg adj 30-35 kcals/kg 1138-3815 total kcals 1.25-1.5 g protein/kg 74-89 g total protein Fluid per MD, on lasix NUTRITION DIAGNOSIS: Increased kcal and protein needs r/t wound healing as evidenced by pt w/ sacral open DTI and BL heels with non-blanchable erythema. CURRENT DIET: Cardiac/ CCHO MED PO DIET RECOMMENDATIONS: LOW NA DIET / CCHO MED (texture per MAPPING EDITOR) ADDITIONAL RECOMMENDATIONS: 1) Wound care: add MVI x1 + Vit C 250mg daily + CHACORTA BID 2) Monitor BG w/ iss as needed (pt on solumedrol, BG 147) 3) High protein snack in b/w meals 4) Pt advanced age, rec MAPPING EDITOR eval for appropriate texture and dx PNA 5) Monitor po intake, need for supplements 6) On lasix, monitor lytes daily 7) TXR pt to be with scale.
--- NOTE | 2018-07-18 14:50 | NUR ---
NURSE NOTES: Noted patient on nasal cannla at 2Lpm. No respiratory distress at this time. Oxygen saturation at 98%. Will continue to monitor.
[2018-07-18] MEDS: cefTRIAXone 1 GM in D5W 55 ML IVPB SCH (14:56)
[2018-07-18] MEDS: Solu-MEDROL 40mg Inj IVP SCH ×2 (14:56→21:03)
[2018-07-18 16:00] VITALS: BP 124/75
--- NOTE | 2018-07-18 16:00 | Consultation ---
DATE OF CONSULTATION: 07/18/2018 INFECTIOUS DISEASES CONSULTATION CONSULTING PHYSICIAN: Kathryn Howell M.D. REFERRING PHYSICIAN: Lars Rebolledo M.D. REASON FOR CONSULTATION: Pneumonia. HISTORY OF PRESENTING ILLNESS: This is a 88-year-old lady who was transferred from a [facility] facility with history of cardiomyopathy, congestive heart failure, atrial fibrillation who came in with shortness of breath. She was found to be tachypneic and was found to have a pneumonia. An Infectious Disease consultation has been obtained for antibiotics. PAST MEDICAL HISTORY: 1. History of osteoporosis. 2. Osteoarthritis. 3. Vertebral compression fracture. 4. Atrial fibrillation. 5. Hypertension. 6. Peripheral arterial disease. 7. Cardiomyopathy. 8. Congestive heart failure. 9. Asthma. SOCIAL HISTORY: No history of smoking, alcohol, or drug use. FAMILY HISTORY: Noncontributory. REVIEW OF SYSTEMS: RESPIRATORY: No fever, chills. She has shortness of breath. No cough. No chest pain. CARDIAC: No chest pain. No palpitations. No dizziness. No syncope. GASTROINTESTINAL: No nausea. No vomiting. No abdominal pain or diarrhea. MEDICATIONS: As an inpatient, she is on Solu-Medrol, amiodarone, aspirin, atenolol, vitamin D, docusate, losartan, Lasix, potassium, atorvastatin, Xalatan drops, Flomax, subcutaneous heparin, albuterol ipratropium, ceftriaxone, bethanechol. ALLERGIES: No known drug allergies. PHYSICAL EXAMINATION: VITAL SIGNS: Temperature of 97.5, T-max of 99.2, pulse of 92, respiratory rate of 18, blood pressure 106/73, O2 saturation of 99%. HEENT: Pupils equally reactive to light and accommodation. Mouth appears clean without thrush. NECK: Supple. No adenopathy. No JVD. CARDIOVASCULAR: Regular rate and rhythm. No murmurs. LUNGS: Clear to auscultation bilaterally. No crackles. No wheezes. ABDOMEN: Soft and nontender. No organomegaly. EXTREMITIES: No cyanosis, no clubbing, no edema. LABORATORY AND DIAGNOSTIC DATA: White count 5.1, hemoglobin 8.4, hematocrit 27.1, MCV 98, platelet count of 157. Sodium 144, potassium 3.2, chloride 108, bicarb 29, BUN 23, creatinine 0.7, glucose 147. Calcium 8. Total bilirubin 0.4, AST 25, ALT 12, alkaline phosphatase 148. Troponin 0.048. Total protein 5.2 and albumin 2. Lipase of 105. UA showing 10 to 15 white cells. Urine culture showing gram-negative rods, 30,000 to 40,000 colonies. Chest x-ray is showing cardiomegaly, right-sided pleural effusion, left base opacification with likely pleural and/or parenchymal consolidation. ASSESSMENT: This is a 88-year-old lady with history of hypertension, vertebral fracture, atrial fibrillation who comes in and is found to have. 1. Gram-negative UTI. 2. Pneumonia. 3. Hypertension. PLAN: 1. Continue ceftriaxone. 2. We will order sputum for Gram stain and culture. 3. We will follow up cultures and adjust antibiotics accordingly. I would like to thank, Dr. Caldwell, for this consultation. Kathryn Howell M.D. DR: Charlie JOB#: [id number] CC: Zoran Caldwell M.D.
[2018-07-18] MEDS ORDERED: Milk of Magnesia 30ml Ud ORAL PRN (16:15)
[2018-07-18] MEDS: Bisacodyl EC 5mg tab ORAL PRN (17:29)
--- NOTE | 2018-07-18 19:10 | NUR ---
HAND-OFF: Report given to ANTOINE Owens.
[2018-07-18 20:00] VITALS: BP 108/62
--- NOTE | 2018-07-18 20:00 | NUR ---
NURSE NOTES: Patient received from Graciela RN. Patient is awake and oriented to time, place, purpose. No acute distress at this time. Patient is on 2 L NC saturating 98%. Vitals remains stable and is afebrile, R AC 20G noted, P200 mattress on and family is at beside. Patients is able to follow commands and make her needs known. Will continue to monitor.
[2018-07-18] MEDS: Latanoprost 0.005% Opth 2.5ml Soln BOTH EYES SCH (21:03)
[2018-07-18] MEDS: Tamsulosin 0.4mg cap ORAL SCH (21:04)
[2018-07-18] MEDS: Atorvastatin 20mg tab ORAL SCH (21:04)
[2018-07-18] MEDS: Docusate 100mg cap ORAL SCH (21:04)
--- NOTE | 2018-07-18 22:00 | NUR ---
NURSE NOTES: Patient repositioned. Scheduled meds given. Patient doesn't seem to be in any form of distress at this time. HR is SR. RR 16-22, Spo2 96%, 2 L NC Afebrile.
[2018-07-19] VITALS: BP 142/72
--- NOTE | 2018-07-19 | NUR ---
NURSE NOTES: Patient turned, pillows adjusted. Patient sleeping at this time. Will continue to monitor.
--- NOTE | 2018-07-19 01:25 | Cardiology Report ---
APPROVED REPORT EKG Measurement Heart [id number] Normal sinus rhythm Left axis deviation T wave abnormality, consider anterolateral ischemia Prolonged QT Abnormal ECG
--- NOTE | 2018-07-19 01:30 | Progress Note ---
DATE: 07/18/2018 CARDIOLOGY PROGRESS NOTE SUBJECTIVE: The patient has less shortness of breath. No apparent chest pain. Monitored rhythm, atrial fibrillation. OBJECTIVE: VITAL SIGNS: Blood pressure 106/73, pulse 89, respiratory rate 22. LUNGS: Coarse breath sounds. Scattered rhonchi. HEART: Irregularly irregular rhythm. Normal S1, S2. ABDOMEN: Soft. EXTREMITIES: Trace edema. LABORATORY DATA: White count 5 and hemoglobin 8.4. Potassium 3.2. Troponin 0.048. Albumin 2. BUN 23 and creatinine 0.7. IMPRESSION: 1. Sepsis. 2. Pneumonia. 3. Acute myocardial ischemia. 4. Urinary tract infection. 5. Hypertension. 6. Atrial fibrillation. 7. Recovering respiratory distress. 8. Decubitus ulcer. 9. Severe protein-calorie malnutrition. PLAN: 1. Taper steroids, antimicrobials. 2. Respiratory hygiene. 3. Monitor cardiorenal parameters and volume status. 4. DVT and stress ulcer prophylaxis. 5. Follow up chest x-ray. 6. Anti-platelet and antianginal medications based on clinical parameters. Zoran Caldwell M.D. DR: BARBER JOB#: [id number] CC:
--- NOTE | 2018-07-19 02:00 | NUR ---
NURSE NOTES: No acute changes. Patient repositioned and vitals remains stable, HR 87 SR, Spo2 99 while on 2 L NC, RR ranging from 16-22. Cool to touch. Will continue to monitor.
[2018-07-19 04:00] VITALS: BP 157/65
--- NOTE | 2018-07-19 04:00 | NUR ---
NURSE NOTES: Patient cleaned and repositioned, no BM for the whole night. Remains alert and oriented. Able to communicate needs. No respiratory distress observed.
[2018-07-19] MEDS: Albuterol/Ipratropium 3ml neb HHN SCH ×6 (04:06→23:26)
[2018-07-19 05:48] LABS: HEMATOCRIT 26.3 % (37.0-47.0); HEMOGLOBIN 8.4 G/DL (12.0-16.0); MEAN CORPUSCULAR VOLUME 98 FL (80-99); PLATELET COUNT 172 K/UL (150-450); RED BLOOD COUNT 2.68 M/UL (4.20-5.40); RED CELL DISTRIBUTION WIDTH 16.6 % (11.6-14.8); WHITE BLOOD COUNT 9.2 K/UL (4.8-10.8)
--- NOTE | 2018-07-19 06:00 | NUR ---
NURSE NOTES: Patient calm, no distress observed, SpO2 remaining above 94% and RR ranging around 16-22. No acute events overnight, patient remained calm and content. Patient is able to repositioned self with assistance. BP has remained stable, new purewick changed.
[2018-07-19 06:22] LABS: ALANINE AMINOTRANSFERASE 17 U/L (12-78); ALBUMIN 2.1 G/DL (3.4-5.0); ALBUMIN/GLOBULIN RATIO 0.7 (1.0-2.7); ALKALINE PHOSPHATASE 144 U/L (46-116); ANION GAP 7 mmol/L (5-15); ASPARTATE AMINO TRANSFERASE 22 U/L (15-37); BILIRUBIN,TOTAL 0.3 MG/DL (0.2-1.0); BLOOD UREA NITROGEN 33 mg/dL (7-18); CALCIUM 7.9 MG/DL (8.5-10.1); CARBON DIOXIDE 28 MMOL/L (21-32); CHLORIDE 109 MMOL/L (98-107); CREATININE 0.8 MG/DL (0.55-1.30); POTASSIUM 3.8 MMOL/L (3.5-5.1); SODIUM 144 MMOL/L (136-145)
--- NOTE | 2018-07-19 07:15 | NUR ---
NURSE NOTES: Received patient from Rylee Gonsales RN. Patient is awake and able to communicate needs. Receiving O2 via nasal cannula at 2L/min, no respiratory distress noted. Patient is on female external catheter and is in place attached to low continuous suction. Right hand 18 gauge IV intact and patent. Bed locked in lowest position, with side rails up x3, all needs attended to, call light in reach. Will continue to monitor.
[2018-07-19 08:00] VITALS: BP 150/91
--- NOTE | 2018-07-19 08:33 | General Progress Note ---
Assessment/Plan Problem List: (1) Respiratory distress ICD Codes: R06.03 - Acute respiratory distress SNOMED: 518885664 (2) Pneumonia ICD Codes: J18.9 - Pneumonia, unspecified organism SNOMED: 184675778 (3) SOB (shortness of breath) ICD Codes: R06.02 - Shortness of breath SNOMED: 486493315 (4) Sacral decubitus ulcer ICD Codes: L89.159 - Pressure ulcer of sacral region, unspecified stage SNOMED: 884692862 (5) Failure to thrive SNOMED: 19832002 Qualifiers: Qualified Codes: R62.7 - Adult failure to thrive Status: stable, progressing Assessment/Plan iv abx cont to wean steroids o2 resp rx id eval appreciated monitor cxr wound care diuresis per cards repeat cxr Subjective ROS Limited/Unobtainable: No Constitutional: Reports: malaise, weakness HEENT: Reports: no symptoms Cardiovascular: Reports: no symptoms Respiratory: Reports: cough, shortness of breath Gastrointestinal/Abdominal: Reports: no symptoms Genitourinary: Reports: no symptoms Neurologic/Psychiatric: Reports: no symptoms Endocrine: Reports: no symptoms Hematologic/Lymphatic: Reports: anemia Allergies: Coded Allergies: No Known Allergies (Unverified , 07/17/18) All Systems: reviewed and negative except above Subjective no events. up in bed. eating breakfast. decreased sob Objective Last 24 Hour Vital Signs Date Time Temp Pulse Resp B/P (MAP) Pulse Ox O2 Delivery O2 Flow Rate FiO2 07/19/18 04:16 89 18 100 Nasal Cannula 2.0 28 07/19/18 04:06 80 18 98 Nasal Cannula 2.0 28 07/19/18 04:00 79 07/19/18 04:00 Nasal Cannula 2.0 07/19/18 04:00 98.6 85 16 157/65 98 Nasal Cannula 2.0 07/19/18 00:00 Nasal Cannula 2.0 07/19/18 00:00 98.4 84 22 142/72 94 Nasal Cannula 2.0 07/19/18 00:00 82 07/18/18 23:42 86 18 99 Nasal Cannula 2.0 28 07/18/18 23:30 83 18 98 Nasal Cannula 2.0 28 07/18/18 20:00 98.6 97 18 108/62 94 Nasal Cannula 2.0 07/18/18 20:00 Nasal Cannula 2.0 07/18/18 19:50 86 07/18/18 19:40 76 18 100 Nasal Cannula 2.0 28 07/18/18 19:30 74 18 98 Nasal Cannula 4.0 36 07/18/18 16:00 Nasal Cannula 2.0 07/18/18 16:00 98.2 82 20 124/75 97 Nasal Cannula 2.0 07/18/18 15:54 83 07/18/18 14:53 78 18 100 Nasal Cannula 2.0 28 07/18/18 14:48 79 18 99 Nasal Cannula 4.0 36 07/18/18 12:00 Nasal Cannula 4.0 07/18/18 12:00 97.9 87 24 109/63 98 Nasal Cannula 4.0 07/18/18 11:33 95 07/18/18 11:12 92 18 99 Nasal Cannula 4.0 36 07/18/18 11:03 82 12 97 Nasal Cannula 4.0 36 07/18/18 09:40 75 106/73 07/18/18 09:39 106/73 Intake and Output 07/18/18 07/19/18 19:00 07:00 Intake Total 415 ml Output Total 400 ml Balance 415 ml -400 ml Intake Oral 360 ml IV Total 55 ml Output Urine Total 400 ml # Voids 1 Laboratory Tests 07/19/18 03:55: White Blood Count 9.2#, Red Blood Count 2.68L, Hemoglobin 8.4L, Hematocrit 26.3L , Mean Corpuscular Volume 98, Mean Corpuscular Hemoglobin 31.2H, Mean Corpuscular Hemoglobin Concent 31.7L, Red Cell Distribution Width 16.6H, Platelet Count 172, Mean Platelet Volume 6.5, Neutrophils (%) (Auto) , Lymphocytes (%) (Auto) , Monocytes (%) (Auto) , Eosinophils (%) (Auto) , Basophils (%) (Auto) , Sodium Level 144, Potassium Level 3.8, Chloride Level 109H, Carbon Dioxide Level 28, Anion Gap 7, Blood Urea Nitrogen 33H, Creatinine 0.8, Estimat Glomerular Filtration Rate , Glucose Level 185H, Calcium Level 7.9L , Magnesium Level 1.9, Total Bilirubin 0.3, Aspartate Amino Transf (AST/SGOT) 22 , Alanine Aminotransferase (ALT/SGPT) 17, Alkaline Phosphatase 144H, Pro-B-Type Natriuretic Peptide 1105H, Total Protein 5.0L, Albumin 2.1L, Globulin 2.9, Albumin/Globulin Ratio 0.7L Height (Feet): 5 Height (Inches): 6.00 Weight (Pounds): 154 General Appearance: WD/WN, alert Neck: supple Cardiovascular: normal peripheral pulses, normal rate, regular rhythm Respiratory/Chest: rhonchi - bilaterally Abdomen: normal bowel sounds, non tender, soft, no organomegaly Edema: no edema noted Arm (L), no edema noted Arm (R), no edema noted Leg (L), no edema noted Leg (R), no edema noted Pedal (L), no edema noted Pedal (R), no edema noted Generalized Neurologic: medical i d sales II-XII grossly normal, no motor/sensory deficits, alert, responsive Lars Rebolledo MD Jul 19, 2018 08:33
[2018-07-19] MEDS: Aspirin EC 81mg tab ORAL SCH (08:52)
[2018-07-19] MEDS: Bethanechol 25mg Tab ORAL SCH ×3 (08:52→17:30)
[2018-07-19] MEDS: Losartan 50mg tab ORAL SCH (08:53)
[2018-07-19] MEDS: Vitamin D 1000 IU Tab ORAL SCH (08:53)
[2018-07-19] MEDS: Docusate 100mg cap ORAL SCH ×2 (08:54→21:25)
[2018-07-19] MEDS: Amiodarone 200mg tab ORAL SCH (08:54)
[2018-07-19] MEDS: Heparin 5000 units/ml inj SUBQ SCH ×2 (08:55→21:26)
[2018-07-19] MEDS ORDERED: Solu-MEDROL 40mg Inj IVP SCH (09:00)
--- NOTE | 2018-07-19 10:49 | NUR ---
RADIOLOGY DEPT CHEST X-RAY DONE.-P.DYE
[2018-07-19 12:00] VITALS: BP 139/76
--- NOTE | 2018-07-19 12:20 | Infectious Diseases Prog Note ---
Assessment/Plan Assessment/Plan A: 1. E. coli ESBL UTI. 2. Pneumonia. 3. Hypertension. 4. Asthma 5. Anemia 6.Atrial fibrillation PLAN: 1. Change ceftriaxone to Meropenem 2. We will follow up cultures and adjust antibiotics. Subjective ROS Limited/Unobtainable: Yes Respiratory: Reports: shortness of breath, productive cough Allergies: Coded Allergies: No Known Allergies (Unverified , 07/17/18) Objective Vital Signs Last 24 Hour Vital Signs Date Time Temp Pulse Resp B/P (MAP) Pulse Ox O2 Delivery O2 Flow Rate FiO2 07/19/18 12:00 98.4 86 15 139/76 99 Nasal Cannula 2.0 07/19/18 11:56 79 18 100 Nasal Cannula 2.0 28 07/19/18 11:48 73 18 100 Nasal Cannula 2.0 28 07/19/18 11:48 28 07/19/18 09:43 69 18 100 Nasal Cannula 2.0 28 07/19/18 09:42 Nasal Cannula 2.0 28 07/19/18 09:41 100 Nasal Cannula 2.0 07/19/18 09:37 28 07/19/18 09:37 71 18 100 Nasal Cannula 2.0 28 07/19/18 08:53 150/91 07/19/18 08:53 74 150/91 07/19/18 08:00 Nasal Cannula 2.0 07/19/18 08:00 97.8 74 21 150/91 97 Nasal Cannula 2.0 07/19/18 07:48 76 07/19/18 04:16 89 18 100 Nasal Cannula 2.0 07/19/18 04:06 80 18 98 Nasal Cannula 2.0 07/19/18 04:00 79 07/19/18 04:00 Nasal Cannula 2.0 07/19/18 04:00 98.6 85 16 157/65 98 Nasal Cannula 2.0 07/19/18 00:00 Nasal Cannula 2.0 07/19/18 00:00 98.4 84 22 142/72 94 Nasal Cannula 2.0 07/19/18 00:00 82 07/18/18 23:42 86 18 99 Nasal Cannula 2.0 28 07/18/18 23:30 83 18 98 Nasal Cannula 2.0 07/18/18 20:00 98.6 97 18 108/62 94 Nasal Cannula 2.0 07/18/18 20:00 Nasal Cannula 2.0 07/18/18 19:50 86 07/18/18 19:40 76 18 100 Nasal Cannula 2.0 28 07/18/18 19:30 74 18 98 Nasal Cannula 4.0 36 07/18/18 16:00 Nasal Cannula 2.0 07/18/18 16:00 98.2 82 20 124/75 97 Nasal Cannula 2.0 07/18/18 15:54 83 07/18/18 14:53 78 18 100 Nasal Cannula 2.0 28 07/18/18 14:48 79 18 99 Nasal Cannula 4.0 36 Height (Feet): 5 Height (Inches): 6.00 Weight (Pounds): 154 General Appearance: no acute distress HEENT: mucous membranes moist Respiratory/Chest: expiratory wheezing Cardiovascular: normal rate Abdomen: soft, non tender Extremities: no edema Neurologic/Psychiatric: alert, responsive Microbiology Date/Time Source Procedure Growth Status 07/17/18 06:42 Blood Blood Culture - Preliminary NO GROWTH AFTER 24 HOURS Resulted 07/17/18 06:42 Blood Blood Culture - Preliminary NO GROWTH AFTER 24 HOURS Resulted 07/17/18 08:00 Nasal Nares Left MRSA Culture - Final NO METHICILLIN RESISTANT STAPH AUREUS... Complete 07/17/18 07:05 Urine,Clean Catch Urine Culture - Preliminary Escherichia Coli - Esbl YEAST Resulted 07/17/18 08:00 Rectum - Final NO CARBAPENEM-RESISTANT ENTEROBACTERI... Complete 07/17/18 08:00 Rectum VRE Culture - Final NO VANCOMYCIN RESISTANT ENTEROCOCCUS ... Complete Laboratory Tests Test 07/19/18 03:55 White Blood Count 9.2 K/UL (4.8-10.8) # Red Blood Count 2.68 M/UL (4.20-5.40) L Hemoglobin 8.4 G/DL (12.0-16.0) L Hematocrit 26.3 % (37.0-47.0) L Mean Corpuscular Volume 98 FL (80-99) Mean Corpuscular Hemoglobin 31.2 PG (27.0-31.0) H Mean Corpuscular Hemoglobin Concent 31.7 G/DL (32.0-36.0) L Red Cell Distribution Width 16.6 % (11.6-14.8) H Platelet Count 172 K/UL (150-450) Mean Platelet Volume 6.5 FL (6.5-10.1) Neutrophils (%) (Auto) % (45.0-75.0) Lymphocytes (%) (Auto) % (20.0-45.0) Monocytes (%) (Auto) % (1.0-10.0) Eosinophils (%) (Auto) % (0.0-3.0) Basophils (%) (Auto) % (0.0-2.0) Sodium Level 144 MMOL/L (136-145) Potassium Level 3.8 MMOL/L (3.5-5.1) Chloride Level 109 MMOL/L (98-107) H Carbon Dioxide Level 28 MMOL/L (21-32) Anion Gap 7 mmol/L (5-15) Blood Urea Nitrogen 33 mg/dL (7-18) H Creatinine 0.8 MG/DL (0.55-1.30) Estimat Glomerular Filtration Rate mL/min (>60) Glucose Level 185 MG/DL (74-106) H Calcium Level 7.9 MG/DL (8.5-10.1) L Magnesium Level 1.9 MG/DL (1.8-2.4) Total Bilirubin 0.3 MG/DL (0.2-1.0) Aspartate Amino Transf (AST/SGOT) 22 U/L (15-37) Alanine Aminotransferase (ALT/SGPT) 17 U/L (12-78) Alkaline Phosphatase 144 U/L (46-116) H Pro-B-Type Natriuretic Peptide 1105 pg/mL (0-125) H Total Protein 5.0 G/DL (6.4-8.2) L Albumin 2.1 G/DL (3.4-5.0) L Globulin 2.9 g/dL Albumin/Globulin Ratio 0.7 (1.0-2.7) L Current Medications Medications (Trade) Dose Ordered Sig/Sukhi Route PRN Reason Start Time Stop Time Status Last Admin Dose Admin Albuterol/ Ipratropium (Albuterol/ Ipratropium) 3 ml Q4HRT HHN 07/17/18 15:00 07/22/18 14:59 07/19/18 11:48 Amiodarone HCl (Cordarone) 200 mg DAILY ORAL 07/18/18 09:00 08/17/18 08:59 07/19/18 08:54 Aspirin (Ecotrin) 81 mg DAILY ORAL 07/18/18 09:00 08/17/18 08:59 07/19/18 08:52 Atenolol (Tenormin) 50 mg DAILY ORAL 07/18/18 09:00 08/17/18 08:59 07/19/18 08:53 Atorvastatin Calcium (Lipitor) 20 mg BEDTIME ORAL 07/17/18 21:00 08/16/18 20:59 07/18/18 21:04 Bethanechol Chloride (Urecholine) 50 mg THREE TIMES A DAY ORAL 07/17/18 13:00 08/16/18 12:59 07/19/18 08:52 Bisacodyl (Dulcolax) 5 mg DAILYPRN PRN ORAL Constipation 07/18/18 17:15 08/17/18 17:14 07/18/18 17:29 Ceftriaxone Sodium 1 gm/ Dextrose 55 ml @ 110 mls/hr Q24H IVPB 07/17/18 15:00 07/24/18 14:59 07/18/18 14:56 Docusate Sodium (Colace) 100 mg EVERY 12 HOURS ORAL 07/18/18 21:00 08/17/18 08:59 07/19/18 08:54 Furosemide (Lasix) 40 mg DAILY IV 07/18/18 09:00 08/17/18 08:59 07/19/18 08:54 Heparin Sodium (Porcine) (Heparin 5000 units/ml) 5,000 units EVERY 12 HOURS SUBQ 07/17/18 21:00 08/16/18 20:59 07/19/18 08:55 Latanoprost (Xalatan) 1 drop BEDTIME BOTH EYES 07/17/18 21:00 08/16/18 20:59 07/18/18 21:03 Losartan Potassium (Cozaar) 100 mg DAILY ORAL 07/18/18 09:00 08/17/18 08:59 07/19/18 08:53 Magnesium Hydroxide (Mom) 30 ml HSPRN PRN ORAL Constipation 07/18/18 16:15 08/17/18 16:14 Methylprednisolone Sodium Succinate (Solu-MEDROL) 40 mg EVERY 12 HOURS IVP 07/19/18 09:00 08/18/18 08:59 07/19/18 08:54 Potassium Chloride (K-Dur) 20 meq DAILY ORAL 07/18/18 09:00 08/17/18 08:59 07/19/18 08:55 Tamsulosin HCl (Flomax) 0.4 mg BEDTIME ORAL 07/17/18 21:00 08/16/18 20:59 07/18/18 21:04 Vitamin D (Vitamin D) 5,000 intlu DAILY ORAL 07/18/18 09:00 08/17/18 08:59 07/19/18 08:53 Jd Turner MD Jul 19, 2018 12:20
[2018-07-19] MEDS: Meropenem 1 GM in NS 55 ML IVPB SCH ×2 (13:18→21:25)
--- NOTE | 2018-07-19 14:10 | Surgery Progress Note ---
Surgery Progress Note Subjective Additional Comments no acute events. labs noted. comfortable. wound stable. nutrition poor. added protein and vitamins Objective Last 24 Hour Vital Signs Date Time Temp Pulse Resp B/P (MAP) Pulse Ox O2 Delivery O2 Flow Rate FiO2 07/19/18 12:00 98.4 86 15 139/76 99 Nasal Cannula 2.0 07/19/18 12:00 Nasal Cannula 2.0 07/19/18 11:56 79 18 100 Nasal Cannula 2.0 28 07/19/18 11:48 73 18 100 Nasal Cannula 2.0 28 07/19/18 11:48 28 07/19/18 09:43 69 18 100 Nasal Cannula 2.0 28 07/19/18 09:42 Nasal Cannula 2.0 28 07/19/18 09:41 100 Nasal Cannula 2.0 28 07/19/18 09:37 28 07/19/18 09:37 71 18 100 Nasal Cannula 2.0 28 07/19/18 08:53 150/91 07/19/18 08:53 74 150/91 07/19/18 08:00 Nasal Cannula 2.0 07/19/18 08:00 97.8 74 21 150/91 97 Nasal Cannula 2.0 07/19/18 07:48 76 07/19/18 04:16 89 18 100 Nasal Cannula 2.0 28 07/19/18 04:06 80 18 98 Nasal Cannula 2.0 07/19/18 04:00 79 07/19/18 04:00 Nasal Cannula 2.0 07/19/18 04:00 98.6 85 16 157/65 98 Nasal Cannula 2.0 07/19/18 00:00 Nasal Cannula 2.0 07/19/18 00:00 98.4 84 22 142/72 94 Nasal Cannula 2.0 07/19/18 00:00 82 07/18/18 23:42 86 18 99 Nasal Cannula 2.0 28 07/18/18 23:30 83 18 98 Nasal Cannula 2.0 28 07/18/18 20:00 98.6 97 18 108/62 94 Nasal Cannula 2.0 07/18/18 20:00 Nasal Cannula 2.0 07/18/18 19:50 86 07/18/18 19:40 76 18 100 Nasal Cannula 2.0 28 07/18/18 19:30 74 18 98 Nasal Cannula 4.0 36 07/18/18 16:00 Nasal Cannula 2.0 07/18/18 16:00 98.2 82 20 124/75 97 Nasal Cannula 2.0 07/18/18 15:54 83 07/18/18 14:53 78 18 100 Nasal Cannula 2.0 28 07/18/18 14:48 79 18 99 Nasal Cannula 4.0 36 I&O Intake and Output 07/18/18 07/19/18 19:00 07:00 Intake Total 415 ml Output Total 400 ml Balance 415 ml -400 ml Intake Oral 360 ml IV Total 55 ml Output Urine Total 400 ml # Voids 1 Dressing: other Wound: other Drains: other Cardiovascular: RSR Respiratory: clear Abdomen: soft, non-tender, decreased bowel sounds Extremities: no cyanosis, other Laboratory Tests Test 07/19/18 03:55 White Blood Count 9.2 K/UL (4.8-10.8) # Red Blood Count 2.68 M/UL (4.20-5.40) L Hemoglobin 8.4 G/DL (12.0-16.0) L Hematocrit 26.3 % (37.0-47.0) L Mean Corpuscular Volume 98 FL (80-99) Mean Corpuscular Hemoglobin 31.2 PG (27.0-31.0) H Mean Corpuscular Hemoglobin Concent 31.7 G/DL (32.0-36.0) L Red Cell Distribution Width 16.6 % (11.6-14.8) H Platelet Count 172 K/UL (150-450) Mean Platelet Volume 6.5 FL (6.5-10.1) Neutrophils (%) (Auto) % (45.0-75.0) Lymphocytes (%) (Auto) % (20.0-45.0) Monocytes (%) (Auto) % (1.0-10.0) Eosinophils (%) (Auto) % (0.0-3.0) Basophils (%) (Auto) % (0.0-2.0) Sodium Level 144 MMOL/L (136-145) Potassium Level 3.8 MMOL/L (3.5-5.1) Chloride Level 109 MMOL/L (98-107) H Carbon Dioxide Level 28 MMOL/L (21-32) Anion Gap 7 mmol/L (5-15) Blood Urea Nitrogen 33 mg/dL (7-18) H Creatinine 0.8 MG/DL (0.55-1.30) Estimat Glomerular Filtration Rate mL/min (>60) Glucose Level 185 MG/DL (74-106) H Calcium Level 7.9 MG/DL (8.5-10.1) L Magnesium Level 1.9 MG/DL (1.8-2.4) Total Bilirubin 0.3 MG/DL (0.2-1.0) Aspartate Amino Transf (AST/SGOT) 22 U/L (15-37) Alanine Aminotransferase (ALT/SGPT) 17 U/L (12-78) Alkaline Phosphatase 144 U/L (46-116) H Pro-B-Type Natriuretic Peptide 1105 pg/mL (0-125) H Total Protein 5.0 G/DL (6.4-8.2) L Albumin 2.1 G/DL (3.4-5.0) L Globulin 2.9 g/dL Albumin/Globulin Ratio 0.7 (1.0-2.7) L Plan Problems: (1) Sacral decubitus ulcer Assessment & Plan: Pt presented on admission with DTPI sacrum extending down to R and L lower buttocks with (2) openings at R of sacral wound. Base of wound indurated, maroon in colour with red tinged borders . Both openings beefy red in colour with minimal serosanguineous exudate .No odor noted. Pt verbalized tenderness when sacral area minimally palpated. Non-blanchable erythema without induration noted periwound.(L)14.5cm x (W)11cm. Both heels are fluctuant with non-blanchable erythema. Pt verbalized tenderness when both heels are minimally palpated. Pt is alert and has been educated on wound prevention. Pt encouraged to frequently reposition side to side at least hourly. Tx.Plan: Apply Triad Paste to Sacrum/ buttocks .Cover Sacral area with Optifoam drsg .Change every 3 days and prn. Apply Cavilon Skin Barrier to both heels. Cover each heel with Optifoam drsg.Change every 7 days and prn. Encourage and assist with repositioning at least every 2hours or as tolerated. Off-load heels with Pillow. APM/ANA PAULA mattress. (2) Failure to thrive Assessment & Plan: Hypoalbuminemia Nutritional status poor will need improved nutrition for proper wound healing nutrition consult for goals diet as tolerated encourage oral intake. DAILY ESTIMATED NEEDS: Needs based on Wounds, 59kg adj 30-35 kcals/kg [id number] total kcals 1.25-1.5 g protein/kg 74-89 g total protein Fluid per MD, on lasix NUTRITION DIAGNOSIS: Increased kcal and protein needs r/t wound healing as evidenced by pt w/ sacral open DTI and BL heels with non-blanchable erythema. CURRENT DIET: Cardiac/ CCHO MED PO DIET RECOMMENDATIONS: LOW NA DIET / CCHO MED (texture per TOBACCO FLAVORER) ADDITIONAL RECOMMENDATIONS: 1) Wound care: add MVI x1 + Vit C 250mg daily + CHACORTA BID 2) Monitor BG w/ iss as needed (pt on solumedrol, BG 147) 3) High protein snack in b/w meals 4) Pt advanced age, rec TOBACCO FLAVORER eval for appropriate texture and dx PNA 5) Monitor po intake, need for supplements 6) On lasix, monitor lytes daily 7) TXR pt to be with scale. Rob Payne Jul 19, 2018 14:10
--- NOTE | 2018-07-19 14:28 | Diagnostic Imaging Report ---
Indication: Cough Technique: One view of the chest Comparison: 07/17/2018 Findings: Again demonstrated is blunting of the right costophrenic sulcus and slight haziness of the right lung base, likely representing a small pleural effusion. This appears minimally increased Pleural fluid at the left lung base persists, may be slightly increased. The heart remains enlarged. The upper lungs are clear. The aorta is tortuous and calcified, ectatic and possibly aneurysmal. Impression: Slightly increased bilateral pleural fluid. Persistent cardiomegaly Tortuous calcified ectatic thoracic aorta; thoracic aortic aneurysm possible. Consider CT to better characterize if clinically indicated
[2018-07-19 16:00] VITALS: BP 124/67
--- NOTE | 2018-07-19 19:17 | NUR ---
HAND-OFF: Report given to Rylee Gonsales RN.
--- NOTE | 2018-07-19 19:32 | NUR ---
CASE MANAGEMENT: REVIEW SI: A-FIB . PNA. SACRAL DECUBITUS ULCER T 97.8 HR 82 RR 15 BP 124/67 SAT 98% NC/2L H/H 8.4/26.3 BNP 1105 IS: AMIODARONE PO BID MEROPENEM IV Q12HR ALBUTEROL HHN Q4HR STEP DOWN UNIT STATUS' DCP: [facility]
[2018-07-19 20:00] VITALS: BP 135/76
--- NOTE | 2018-07-19 20:00 | NUR ---
NURSE NOTES: Patient received from Charlene SCHULTZ. Patient is awake and oriented to time, place, purpose. No acute distress at this time. Patient is on 2 L NC saturating 98%. Vitals remains stable and is afebrile, R hand 20G noted, P200 mattress on and family is at beside. Patients is able to follow commands and make her needs known. Will continue to monitor.
[2018-07-19] MEDS: Atorvastatin 20mg tab ORAL SCH (21:25)
[2018-07-19] MEDS: Tamsulosin 0.4mg cap ORAL SCH (21:25)
[2018-07-19] MEDS: Latanoprost 0.005% Opth 2.5ml Soln BOTH EYES SCH (21:26)
--- NOTE | 2018-07-19 23:16 | Progress Note ---
DATE: 07/19/2018 CARDIOLOGY PROGRESS NOTE SUBJECTIVE: She is up in bed, eating breakfast, less short of breath. PHYSICAL EXAMINATION: VITAL SIGNS: Blood pressure 157/65, pulse 85, respirations 16, afebrile. LUNGS: Bilateral breath sounds. Scattered rhonchi. HEART: Irregularly irregular rhythm. Normal S1, S2. ABDOMEN: Soft. EXTREMITIES: Trace edema. LABORATORY AND DIAGNOSTIC DATA: Urine is positive for E. Coli, ESBL, and yeast. White count 9.2 and hemoglobin 8.4. Potassium 3.8, BUN 32, creatinine 0.8. Pro-natriuretic peptide 1100. Albumin 2.1. Chest x-ray today revealed increased bilateral pleural fluid, cardiomegaly, lung toscano are clear. IMPRESSION: 1. Sepsis. 2. Urinary tract infection. 3. Fungal cystitis. 4. Acute on chronic diastolic congestive heart failure. 5. Pleural effusion. 6. Paroxysmal atrial fibrillation. PLAN: 1. Advance amiodarone to sustain sinus rhythm reload. 2. Continued anti-platelet therapy and avoid anticoagulants in view of increased bleeding risk. 3. Antimicrobials. 4. Respiratory hygiene. 5. Maintenance dose diuretic therapy. Zoran Caldwell M.D. DR: BARBER JOB#: [id number] CC:
[2018-07-20] VITALS: BP 124/71
--- NOTE | 2018-07-20 | NUR ---
NURSE NOTES: Patient repositioned, in stable condition at the moment, NAD, remains on 2L NC, has been SR, no acute events, will continue to monitor.
[2018-07-20] MEDS: Albuterol/Ipratropium 3ml neb HHN SCH ×6 (03:34→23:03)
[2018-07-20 04:00] VITALS: BP 136/78
--- NOTE | 2018-07-20 04:00 | NUR ---
NURSE NOTES: Patient cleaned and repositioned, no form of distress this time, remains on 2L NC, no acute changed overnight
[2018-07-20 05:47] LABS: HEMOGLOBIN 8.3 G/DL (12.0-16.0); MEAN CORPUSCULAR VOLUME 99 FL (80-99); PLATELET COUNT 160 K/UL (150-450); RED BLOOD COUNT 2.73 M/UL (4.20-5.40); RED CELL DISTRIBUTION WIDTH 15.8 % (11.6-14.8)
[2018-07-20 06:05] LABS: ALANINE AMINOTRANSFERASE 13 U/L (12-78); ALBUMIN 2.1 G/DL (3.4-5.0); ALBUMIN/GLOBULIN RATIO 0.7 (1.0-2.7); ALKALINE PHOSPHATASE 132 U/L (46-116); ANION GAP 6 mmol/L (5-15); ASPARTATE AMINO TRANSFERASE 22 U/L (15-37); BILIRUBIN,TOTAL 0.3 MG/DL (0.2-1.0); BLOOD UREA NITROGEN 35 mg/dL (7-18); CALCIUM 8.2 MG/DL (8.5-10.1); CARBON DIOXIDE 31 MMOL/L (21-32); CHLORIDE 109 MMOL/L (98-107); CREATININE 0.7 MG/DL (0.55-1.30); POTASSIUM 3.8 MMOL/L (3.5-5.1); SODIUM 146 MMOL/L (136-145)
--- NOTE | 2018-07-20 07:15 | NUR ---
NURSE NOTES: Report received from Tom Quinn RN.Pt awake sitting up on bed ,eating breakfast ,noted no resp distress denies any c/o pain or discomfort,SR on the monitor,IV site to RH intact ,skin warm and dry SR up x2 call rondon within reach at bedside,HOB elevated,bed lock in lowest position,will continue with plans of care.
[2018-07-20 08:00] VITALS: BP 158/89
--- NOTE | 2018-07-20 08:45 | General Progress Note ---
Assessment/Plan Problem List: (1) Respiratory distress ICD Codes: R06.03 - Acute respiratory distress SNOMED: 587046960 (2) Pneumonia ICD Codes: J18.9 - Pneumonia, unspecified organism SNOMED: 449003966 (3) SOB (shortness of breath) ICD Codes: R06.02 - Shortness of breath SNOMED: 121650323 (4) Sacral decubitus ulcer ICD Codes: L89.159 - Pressure ulcer of sacral region, unspecified stage SNOMED: 774844737 (5) Failure to thrive SNOMED: 22403431 Qualifiers: Qualified Codes: R62.7 - Adult failure to thrive Status: stable, progressing Assessment/Plan iv abx o2 resp rx id eval appreciated monitor cxr wound care diuresis per cards repeat cxr Subjective ROS Limited/Unobtainable: No Constitutional: Reports: malaise, weakness HEENT: Reports: no symptoms Cardiovascular: Reports: no symptoms Respiratory: Reports: cough Gastrointestinal/Abdominal: Reports: no symptoms Genitourinary: Reports: no symptoms Neurologic/Psychiatric: Reports: no symptoms Endocrine: Reports: no symptoms Hematologic/Lymphatic: Reports: no symptoms Allergies: Coded Allergies: No Known Allergies (Unverified , 07/17/18) All Systems: reviewed and negative except above Subjective no events. up in bed. eating breakfast. decreased sob ?more congested. no pain. Objective Last 24 Hour Vital Signs Date Time Temp Pulse Resp B/P (MAP) Pulse Ox O2 Delivery O2 Flow Rate FiO2 07/20/18 08:00 Nasal Cannula 2.0 07/20/18 07:07 71 12 100 Nasal Cannula 2.0 28 07/20/18 07:06 99 Nasal Cannula 2.0 28 07/20/18 07:06 Nasal Cannula 2.0 28 07/20/18 07:00 68 12 98 Nasal Cannula 2.0 28 07/20/18 07:00 36 07/20/18 04:00 Nasal Cannula 2.0 07/20/18 04:00 97.4 81 18 136/78 98 Nasal Cannula 2.0 07/20/18 04:00 75 07/20/18 03:46 76 16 100 Nasal Cannula 2.0 28 07/20/18 03:32 79 14 100 Nasal Cannula 2.0 28 07/20/18 03:32 28 3/7/19 00:00 73 07/20/18 00:00 Nasal Cannula 2.0 07/20/18 00:00 98.2 84 18 124/71 99 Nasal Cannula 2.0 07/19/18 23:23 28 07/19/18 23:22 73 22 100 Nasal Cannula 2.0 28 07/19/18 23:22 75 16 100 Nasal Cannula 2.0 28 07/19/18 20:00 98.2 74 20 135/76 99 Nasal Cannula 2.0 07/19/18 20:00 Nasal Cannula 2.0 07/19/18 20:00 72 07/19/18 19:40 91 18 99 Nasal Cannula 2.0 28 07/19/18 19:30 95 21 99 Nasal Cannula 2.0 28 07/19/18 19:30 28 07/19/18 19:30 Nasal Cannula 2.0 28 07/19/18 19:29 99 Nasal Cannula 2.0 28 07/19/18 16:00 Nasal Cannula 2.0 07/19/18 16:00 97.8 82 15 124/67 98 Nasal Cannula 2.0 07/19/18 15:45 81 18 100 Nasal Cannula 2.0 28 07/19/18 15:34 28 07/19/18 15:34 70 18 99 Nasal Cannula 2.0 07/19/18 15:27 74 07/19/18 12:00 98.4 86 15 139/76 99 Nasal Cannula 2.0 07/19/18 12:00 Nasal Cannula 2.0 07/19/18 11:57 83 07/19/18 11:56 79 18 100 Nasal Cannula 2.0 07/19/18 11:48 73 18 100 Nasal Cannula 2.0 07/19/18 11:48 28 07/19/18 09:43 69 18 100 Nasal Cannula 2.0 07/19/18 09:42 Nasal Cannula 2.0 28 07/19/18 09:41 100 Nasal Cannula 2.0 07/19/18 09:37 28 07/19/18 09:37 71 18 100 Nasal Cannula 2.0 07/19/18 08:53 150/91 07/19/18 08:53 74 150/91 Intake and Output 07/19/18 07/20/18 19:00 07:00 Intake Total 355 ml Output Total 300 ml 350 ml Balance 55 ml -350 ml Intake Oral 300 ml IV Total 55 ml Output Urine Total 300 ml 350 ml Laboratory Tests 07/20/18 03:45: White Blood Count 9.0, Red Blood Count 2.73L, Hemoglobin 8.3L, Hematocrit 27.0L , Mean Corpuscular Volume 99, Mean Corpuscular Hemoglobin 30.4, Mean Corpuscular Hemoglobin Concent 30.8L, Red Cell Distribution Width 15.8H, Platelet Count 160, Mean Platelet Volume 6.5, Neutrophils (%) (Auto) , Lymphocytes (%) (Auto) , Monocytes (%) (Auto) , Eosinophils (%) (Auto) , Basophils (%) (Auto) , Sodium Level 146H, Potassium Level 3.8, Chloride Level 109H, Carbon Dioxide Level 31, Anion Gap 6, Blood Urea Nitrogen 35H, Creatinine 0.7, Estimat Glomerular Filtration Rate , Glucose Level 134H, Calcium Level 8.2L , Total Bilirubin 0.3, Aspartate Amino Transf (AST/SGOT) 22, Alanine Aminotransferase (ALT/SGPT) 13, Alkaline Phosphatase 132H, Total Protein 5.0L, Albumin 2.1L, Globulin 2.9, Albumin/Globulin Ratio 0.7L Height (Feet): 5 Height (Inches): 6.00 Weight (Pounds): 154 Objective General Appearance: WD/WN, alert Neck: supple Cardiovascular: normal peripheral pulses, normal rate, regular rhythm Respiratory/Chest: rhonchi - bilaterally Abdomen: normal bowel sounds, non tender, soft, no organomegaly Edema: no edema noted Arm (L), no edema noted Arm (R), no edema noted Leg (L), no edema noted Leg (R), no edema noted Pedal (L), no edema noted Pedal (R), no edema noted Generalized 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
[2018-07-20] MEDS: Vitamin D 1000 IU Tab ORAL SCH (09:28)
[2018-07-20] MEDS: Losartan 50mg tab ORAL SCH (09:28)
[2018-07-20] MEDS: Ascorbic Acid 500mg tab ORAL SCH (09:30)
[2018-07-20] MEDS: Docusate 100mg cap ORAL SCH ×2 (09:30→20:49)
[2018-07-20] MEDS: Amiodarone 200mg tab ORAL SCH ×2 (09:30→17:33)
[2018-07-20] MEDS: Meropenem 1 GM in NS 55 ML IVPB SCH ×2 (09:33→20:48)
[2018-07-20] MEDS: Heparin 5000 units/ml inj SUBQ SCH ×2 (09:33→20:50)
[2018-07-20] MEDS: Aspirin EC 81mg tab ORAL SCH (09:36)
--- NOTE | 2018-07-20 10:28 | Infectious Diseases Prog Note ---
"Assessment/Plan Assessment/Plan antibiotics : meropenem A 1. esbl e.coli UTI | fungal UTI 2. pneumonia 3. hypertension 4. atrial fibrillation 5. thoracic aortic aneurysm P 1. continue meropenem 2. will follow up cultures Subjective ROS Limited/Unobtainable: Yes Allergies: Coded Allergies: No Known Allergies (Unverified , 07/17/18) Objective Vital Signs Last 24 Hour Vital Signs Date Time Temp Pulse Resp B/P (MAP) Pulse Ox O2 Delivery O2 Flow Rate FiO2 07/20/18 09:29 73 158/89 07/20/18 09:28 158/89 07/20/18 08:00 83 07/20/18 08:00 97.7 73 13 158/89 100 Nasal Cannula 2.0 07/20/18 08:00 Nasal Cannula 2.0 07/20/18 07:07 71 12 100 Nasal Cannula 2.0 28 07/20/18 07:06 99 Nasal Cannula 2.0 28 07/20/18 07:06 Nasal Cannula 2.0 28 07/20/18 07:00 68 12 98 Nasal Cannula 2.0 28 07/20/18 07:00 36 07/20/18 04:00 Nasal Cannula 2.0 07/20/18 04:00 97.4 81 18 136/78 98 Nasal Cannula 2.0 07/20/18 04:00 75 07/20/18 03:46 76 16 100 Nasal Cannula 2.0 28 07/20/18 03:32 79 14 100 Nasal Cannula 2.0 28 07/20/18 03:32 28 07/20/18 00:00 73 07/20/18 00:00 Nasal Cannula 2.0 07/20/18 00:00 98.2 84 18 124/71 99 Nasal Cannula 2.0 07/19/18 23:23 28 07/19/18 23:22 73 22 100 Nasal Cannula 2.0 28 07/19/18 23:22 75 16 100 Nasal Cannula 2.0 28 07/19/18 20:00 98.2 74 20 135/76 99 Nasal Cannula 2.0 07/19/18 20:00 Nasal Cannula 2.0 07/19/18 20:00 72 07/19/18 19:40 91 18 99 Nasal Cannula 2.0 28 07/19/18 19:30 95 21 99 Nasal Cannula 2.0 28 07/19/18 19:30 28 07/19/18 19:30 Nasal Cannula 2.0 28 07/19/18 19:29 99 Nasal Cannula 2.0 28 07/19/18 16:00 Nasal Cannula 2.0 07/19/18 16:00 97.8 82 15 124/67 98 Nasal Cannula 2.0 07/19/18 15:45 81 18 100 Nasal Cannula 2.0 28 07/19/18 15:34 28 07/19/18 15:34 70 18 99 Nasal Cannula 2.0 28 07/19/18 15:27 74 07/19/18 12:00 98.4 86 15 139/76 99 Nasal Cannula 2.0 07/19/18 12:00 Nasal Cannula 2.0 07/19/18 11:57 83 07/19/18 11:56 79 18 100 Nasal Cannula 2.0 07/19/18 11:48 73 18 100 Nasal Cannula 2.0 28 07/19/18 11:48 28 Height (Feet): 5 Height (Inches): 6.00 Weight (Pounds): 154 Respiratory/Chest: lungs clear Cardiovascular: normal rate, regular rhythm, no gallop/murmur Abdomen: soft, non tender Extremities: no edema Laboratory Tests Test 07/20/18 03:45 White Blood Count 9.0 K/UL (4.8-10.8) Red Blood Count 2.73 M/UL (4.20-5.40) L Hemoglobin 8.3 G/DL (12.0-16.0) L Hematocrit 27.0 % (37.0-47.0) L Mean Corpuscular Volume 99 FL (80-99) Mean Corpuscular Hemoglobin 30.4 PG (27.0-31.0) Mean Corpuscular Hemoglobin Concent 30.8 G/DL (32.0-36.0) L Red Cell Distribution Width 15.8 % (11.6-14.8) H Platelet Count 160 K/UL (150-450) Mean Platelet Volume 6.5 FL (6.5-10.1) Neutrophils (%) (Auto) % (45.0-75.0) Lymphocytes (%) (Auto) % (20.0-45.0) Monocytes (%) (Auto) % (1.0-10.0) Eosinophils (%) (Auto) % (0.0-3.0) Basophils (%) (Auto) % (0.0-2.0) Sodium Level 146 MMOL/L (136-145) H Potassium Level 3.8 MMOL/L (3.5-5.1) Chloride Level 109 MMOL/L (98-107) H Carbon Dioxide Level 31 MMOL/L (21-32) Anion Gap 6 mmol/L (5-15) Blood Urea Nitrogen 35 mg/dL (7-18) H Creatinine 0.7 MG/DL (0.55-1.30) Estimat Glomerular Filtration Rate mL/min (>60) Glucose Level 134 MG/DL (74-106) H Calcium Level 8.2 MG/DL (8.5-10.1) L Total Bilirubin 0.3 MG/DL (0.2-1.0) Aspartate Amino Transf (AST/SGOT) 22 U/L (15-37) Alanine Aminotransferase (ALT/SGPT) 13 U/L (12-78) Alkaline Phosphatase 132 U/L (46-116) H Total Protein 5.0 G/DL (6.4-8.2) L Albumin 2.1 G/DL (3.4-5.0) L Globulin 2.9 g/dL Albumin/Globulin Ratio 0.7 (1.0-2.7) L Current Medications Medications (Trade) Dose Ordered Sig/Sukhi Route PRN Reason Start Time Stop Time Status Last Admin Dose Admin Albuterol/ Ipratropium (Albuterol/ Ipratropium) 3 ml Q4HRT HHN 07/17/18 15:00 07/22/18 14:59 07/20/18 07:06 Amiodarone HCl (Cordarone) 200 mg BID ORAL 07/20/18 09:00 08/19/18 08:59 07/20/18 09:30 Ascorbic Acid (Vitamin C) 500 mg DAILY ORAL 07/20/18 09:00 08/19/18 08:59 07/20/18 09:30 Aspirin (Ecotrin) 81 mg DAILY ORAL 07/18/18 09:00 08/17/18 08:59 07/20/18 09:36 Atenolol (Tenormin) 50 mg DAILY ORAL 07/18/18 09:00 08/17/18 08:59 07/20/18 09:29 Atorvastatin Calcium (Lipitor) 20 mg BEDTIME ORAL 07/17/18 21:00 08/16/18 20:59 07/19/18 21:25 Bisacodyl (Dulcolax) 5 mg DAILYPRN PRN ORAL Constipation 07/18/18 17:15 08/17/18 17:14 07/18/18 17:29 Docusate Sodium (Colace) 100 mg EVERY 12 HOURS ORAL 07/18/18 21:00 08/17/18 08:59 07/20/18 09:30 Furosemide (Lasix) 40 mg DAILY IV 07/20/18 09:00 07/20/18 11:00 07/20/18 09:27 Heparin Sodium (Porcine) (Heparin 5000 units/ml) 5,000 units EVERY 12 HOURS SUBQ 07/17/18 21:00 08/16/18 20:59 07/20/18 09:33 Latanoprost (Xalatan) 1 drop BEDTIME BOTH EYES 07/17/18 21:00 08/16/18 20:59 07/19/18 21:26 Losartan Potassium (Cozaar) 100 mg DAILY ORAL 07/18/18 09:00 08/17/18 08:59 07/20/18 09:28 Magnesium Hydroxide (Mom) 30 ml HSPRN PRN ORAL Constipation 07/18/18 16:15 08/17/18 16:14 Meropenem 1 gm/ Sodium Chloride 55 ml @ 110 mls/hr Q12HR IVPB 07/19/18 13:30 07/24/18 13:29 07/20/18 09:33 Multivitamins (Multivitamins) 1 tab DAILY ORAL 07/20/18 09:00 08/19/18 08:59 07/20/18 09:30 Potassium Chloride (K-Dur) 20 meq DAILY ORAL 07/20/18 09:00 07/20/18 11:00 07/20/18 09:30 Tamsulosin HCl (Flomax) 0.4 mg BEDTIME ORAL 07/17/18 21:00 08/16/18 20:59 07/19/18 21:25 Vitamin D (Vitamin D) 5,000 intlu DAILY ORAL 07/18/18 09:00 08/17/18 08:59 07/20/18 09:28 Kathryn Howell MD Jul 20, 2018 10:28"
[2018-07-20] MEDS: Fluconazole 100mg tab ORAL SCH (11:43)
[2018-07-20 12:00] VITALS: BP 134/64
--- NOTE | 2018-07-20 12:07 | NUR ---
NURSE NOTES: pt resting in bed no resp distress presented,turned and repositioned.
--- NOTE | 2018-07-20 13:49 | Surgery Progress Note ---
Surgery Progress Note Objective Last 24 Hour Vital Signs Date Time Temp Pulse Resp B/P (MAP) Pulse Ox O2 Delivery O2 Flow Rate FiO2 07/20/18 12:00 98.6 84 16 134/64 98 Nasal Cannula 2.0 07/20/18 12:00 Nasal Cannula 2.0 07/20/18 10:42 73 16 100 Nasal Cannula 2.0 28 07/20/18 10:36 77 16 99 Nasal Cannula 2.0 28 07/20/18 10:36 36 07/20/18 09:29 73 158/89 07/20/18 09:28 158/89 07/20/18 08:00 83 07/20/18 08:00 97.7 73 13 158/89 100 Nasal Cannula 2.0 07/20/18 08:00 Nasal Cannula 2.0 07/20/18 07:07 71 12 100 Nasal Cannula 2.0 28 07/20/18 07:06 99 Nasal Cannula 2.0 28 07/20/18 07:06 Nasal Cannula 2.0 28 07/20/18 07:00 68 12 98 Nasal Cannula 2.0 28 07/20/18 07:00 36 07/20/18 04:00 Nasal Cannula 2.0 07/20/18 04:00 97.4 81 18 136/78 98 Nasal Cannula 2.0 07/20/18 04:00 75 07/20/18 03:46 76 16 100 Nasal Cannula 2.0 28 07/20/18 03:32 79 14 100 Nasal Cannula 2.0 28 07/20/18 03:32 28 07/20/18 00:00 73 07/20/18 00:00 Nasal Cannula 2.0 07/20/18 00:00 98.2 84 18 124/71 99 Nasal Cannula 2.0 07/19/18 23:23 28 07/19/18 23:22 73 22 100 Nasal Cannula 2.0 28 07/19/18 23:22 75 16 100 Nasal Cannula 2.0 28 07/19/18 20:00 98.2 74 20 135/76 99 Nasal Cannula 2.0 07/19/18 20:00 Nasal Cannula 2.0 07/19/18 20:00 72 07/19/18 19:40 91 18 99 Nasal Cannula 2.0 28 07/19/18 19:30 95 21 99 Nasal Cannula 2.0 28 07/19/18 19:30 28 07/19/18 19:30 Nasal Cannula 2.0 28 07/19/18 19:29 99 Nasal Cannula 2.0 28 07/19/18 16:00 Nasal Cannula 2.0 07/19/18 16:00 97.8 82 15 124/67 98 Nasal Cannula 2.0 07/19/18 15:45 81 18 100 Nasal Cannula 2.0 28 07/19/18 15:34 28 07/19/18 15:34 70 18 99 Nasal Cannula 2.0 07/19/18 15:27 74 I&O Intake and Output 07/19/18 07/20/18 19:00 07:00 Intake Total 355 ml Output Total 300 ml 350 ml Balance 55 ml -350 ml Intake Oral 300 ml IV Total 55 ml Output Urine Total 300 ml 350 ml Dressing: other Wound: other Drains: other Cardiovascular: RSR Respiratory: clear Abdomen: soft, present bowel sounds, non-distended Extremities: no cyanosis Laboratory Tests Test 07/20/18 03:45 White Blood Count 9.0 K/UL (4.8-10.8) Red Blood Count 2.73 M/UL (4.20-5.40) L Hemoglobin 8.3 G/DL (12.0-16.0) L Hematocrit 27.0 % (37.0-47.0) L Mean Corpuscular Volume 99 FL (80-99) Mean Corpuscular Hemoglobin 30.4 PG (27.0-31.0) Mean Corpuscular Hemoglobin Concent 30.8 G/DL (32.0-36.0) L Red Cell Distribution Width 15.8 % (11.6-14.8) H Platelet Count 160 K/UL (150-450) Mean Platelet Volume 6.5 FL (6.5-10.1) Neutrophils (%) (Auto) % (45.0-75.0) Lymphocytes (%) (Auto) % (20.0-45.0) Monocytes (%) (Auto) % (1.0-10.0) Eosinophils (%) (Auto) % (0.0-3.0) Basophils (%) (Auto) % (0.0-2.0) Sodium Level 146 MMOL/L (136-145) H Potassium Level 3.8 MMOL/L (3.5-5.1) Chloride Level 109 MMOL/L (98-107) H Carbon Dioxide Level 31 MMOL/L (21-32) Anion Gap 6 mmol/L (5-15) Blood Urea Nitrogen 35 mg/dL (7-18) H Creatinine 0.7 MG/DL (0.55-1.30) Estimat Glomerular Filtration Rate mL/min (>60) Glucose Level 134 MG/DL (74-106) H Calcium Level 8.2 MG/DL (8.5-10.1) L Total Bilirubin 0.3 MG/DL (0.2-1.0) Aspartate Amino Transf (AST/SGOT) 22 U/L (15-37) Alanine Aminotransferase (ALT/SGPT) 13 U/L (12-78) Alkaline Phosphatase 132 U/L (46-116) H Total Protein 5.0 G/DL (6.4-8.2) L Albumin 2.1 G/DL (3.4-5.0) L Globulin 2.9 g/dL Albumin/Globulin Ratio 0.7 (1.0-2.7) L Plan Problems: (1) Sacral decubitus ulcer Assessment & Plan: Pt presented on admission with DTPI sacrum extending down to R and L lower buttocks with (2) openings at R of sacral wound. Base of wound indurated, maroon in colour with red tinged borders . Both openings beefy red in colour with minimal serosanguineous exudate .No odor noted. Pt verbalized tenderness when sacral area minimally palpated. Non-blanchable erythema without induration noted periwound.(L)14.5cm x (W)11cm. Both heels are fluctuant with non-blanchable erythema. Pt verbalized tenderness when both heels are minimally palpated. Pt is alert and has been educated on wound prevention. Pt encouraged to frequently reposition side to side at least hourly. Tx.Plan: Apply Triad Paste to Sacrum/ buttocks .Cover Sacral area with Optifoam drsg .Change every 3 days and prn. Apply Cavilon Skin Barrier to both heels. Cover each heel with Optifoam drsg.Change every 7 days and prn. Encourage and assist with repositioning at least every 2hours or as tolerated. Off-load heels with Pillow. APM/ANA PAULA mattress. (2) Failure to thrive Assessment & Plan: Hypoalbuminemia Nutritional status poor will need improved nutrition for proper wound healing nutrition consult for goals diet as tolerated encourage oral intake. DAILY ESTIMATED NEEDS: Needs based on Wounds, 59kg adj 30-35 kcals/kg 2358-2235 total kcals 1.25-1.5 g protein/kg 74-89 g total protein Fluid per MD, on lasix NUTRITION DIAGNOSIS: Increased kcal and protein needs r/t wound healing as evidenced by pt w/ sacral open DTI and BL heels with non-blanchable erythema. CURRENT DIET: Cardiac/ CCHO MED PO DIET RECOMMENDATIONS: LOW NA DIET / CCHO MED (texture per ACCOUNTING OFFICER) ADDITIONAL RECOMMENDATIONS: 1) Wound care: add MVI x1 + Vit C 250mg daily + CHACORTA BID 2) Monitor BG w/ iss as needed (pt on solumedrol, BG 147) 3) High protein snack in b/w meals 4) Pt advanced age, rec ACCOUNTING OFFICER eval for appropriate texture and dx PNA 5) Monitor po intake, need for supplements 6) On lasix, monitor lytes daily 7) TXR pt to be with scale. Rob Payne Jul 20, 2018 13:49
[2018-07-20 16:00] VITALS: BP 154/93
--- NOTE | 2018-07-20 18:00 | NUR ---
NURSE NOTES: Bedbath given ,turned and repositioned kept dry and clean.
--- NOTE | 2018-07-20 19:25 | NUR ---
NURSE NOTES: Received pt in bed with eyes open. On 2L NC. Patient on Cardiac Diet CCHO medium soft. [place]wick . Right hand IV site patent and intact, flush. On contact precautions, bed in lowest position. Side rails upx 3. Bed alarm on. No signs of distress noted. Will continue to monitor
--- NOTE | 2018-07-20 19:27 | NUR ---
HAND-OFF: Report given to Kathy Shah RN.
--- NOTE | 2018-07-20 19:43 | NUR ---
HAND-OFF: Report given to SHEFALI RN USING SBAR.
[2018-07-20 20:00] VITALS: BP 159/87
--- NOTE | 2018-07-20 20:45 | NUR ---
NURSE NOTES: Received bed side report from ANTOINE Leger.Patient stable,A&Ox4,Bengali speaking,SR on hospital monitor,tolerated well N/C with 2L/min,IV on R hand 20G HL asymptomatic,intact,BS active in all quadrants,bed secured,call light within a reach,family at a bedside,will continue to monitor and follow POC
[2018-07-20] MEDS: Latanoprost 0.005% Opth 2.5ml Soln BOTH EYES SCH (20:48)
[2018-07-20] MEDS: Atorvastatin 20mg tab ORAL SCH (20:49)
[2018-07-20] MEDS: Tamsulosin 0.4mg cap ORAL SCH (20:49)
[2018-07-21] VITALS (7 sets, daily range): BP systolic 135–174; BP diastolic 75–95
[2018-07-21] MEDS: Albuterol/Ipratropium 3ml neb HHN SCH ×6 (03:20→22:36)
[2018-07-21 06:11] LABS: ALANINE AMINOTRANSFERASE 15 U/L (12-78); ALBUMIN 2.1 G/DL (3.4-5.0); ALBUMIN/GLOBULIN RATIO 0.7 (1.0-2.7); ALKALINE PHOSPHATASE 136 U/L (46-116); ANION GAP 6 mmol/L (5-15); ASPARTATE AMINO TRANSFERASE 24 U/L (15-37); BILIRUBIN,TOTAL 0.4 MG/DL (0.2-1.0); BLOOD UREA NITROGEN 31 mg/dL (7-18); CALCIUM 8.3 MG/DL (8.5-10.1); CARBON DIOXIDE 30 MMOL/L (21-32); CHLORIDE 110 MMOL/L (98-107); CREATININE 0.7 MG/DL (0.55-1.30); POTASSIUM 3.8 MMOL/L (3.5-5.1); SODIUM 146 MMOL/L (136-145)
--- NOTE | 2018-07-21 07:03 | NUR ---
HAND-OFF: Report given to ANTOINE Vidales.Patient stable.
--- NOTE | 2018-07-21 07:05 | NUR ---
NURSE NOTES: Received report from Yajaira Jaramillo RN.Pt awake,alert Residential Caregiver at bedside,no resp distress noted,denies any c/o pain or discomfort,SR on the monitor,breakfast served after the xray taken,HOB elevated,bed lock in lowest position ,bed alarm in placed,will continue with plans of care.
[2018-07-21] MEDS: Meropenem 1 GM in NS 55 ML IVPB SCH ×2 (08:21→20:47)
[2018-07-21] MEDS: Aspirin EC 81mg tab ORAL SCH (08:22)
[2018-07-21] MEDS: Losartan 50mg tab ORAL SCH (08:28)
[2018-07-21] MEDS: Amiodarone 200mg tab ORAL SCH ×2 (08:28→18:03)
[2018-07-21] MEDS: Fluconazole 100mg tab ORAL SCH (08:28)
[2018-07-21] MEDS: Docusate 100mg cap ORAL SCH ×2 (08:29→20:48)
[2018-07-21] MEDS: Ascorbic Acid 500mg tab ORAL SCH (08:29)
[2018-07-21] MEDS: Heparin 5000 units/ml inj SUBQ SCH ×2 (08:31→20:48)
[2018-07-21] MEDS: Vitamin D 1000 IU Tab ORAL SCH (08:36)
--- NOTE | 2018-07-21 09:09 | NUR ---
RADIOLOGY DEPT CHEST X-RAY DONE.-P.DYE
--- NOTE | 2018-07-21 10:24 | Infectious Diseases Prog Note ---
"Assessment/Plan Assessment/Plan antibiotics : meropenem, fluconazole A 1. esbl e.coli UTI | fungal UTI 2. pneumonia 3. hypertension 4. atrial fibrillation 5. thoracic aortic aneurysm P 1. continue meropenem 4 more days 2. continue fluconazole 5 more days 3. will follow up cultures Subjective ROS Limited/Unobtainable: Yes Allergies: Coded Allergies: No Known Allergies (Unverified , 07/17/18) Objective Vital Signs Last 24 Hour Vital Signs Date Time Temp Pulse Resp B/P (MAP) Pulse Ox O2 Delivery O2 Flow Rate FiO2 07/21/18 08:28 153/95 07/21/18 08:26 70 153/95 07/21/18 08:00 98.3 70 19 153/95 98 Nasal Cannula 2.0 07/21/18 08:00 Nasal Cannula 2.0 07/21/18 08:00 69 07/21/18 07:05 Nasal Cannula 3.0 32 07/21/18 07:05 Nasal Cannula 3.0 32 07/21/18 07:00 Nasal Cannula 2.0 28 07/21/18 07:00 94 Nasal Cannula 2.0 28 07/21/18 04:00 Nasal Cannula 2.0 07/21/18 04:00 98.0 67 16 155/84 96 Nasal Cannula 2.0 07/21/18 03:39 72 07/21/18 03:30 68 15 99 Nasal Cannula 3.0 32 07/21/18 03:20 68 17 95 Nasal Cannula 3.0 32 07/21/18 00:00 Nasal Cannula 2.0 07/21/18 00:00 98.0 76 14 135/79 99 Nasal Cannula 2.0 07/20/18 23:41 72 07/20/18 23:13 72 16 99 Nasal Cannula 3.0 32 07/20/18 23:03 70 14 97 Nasal Cannula 3.0 32 07/20/18 21:00 Nasal Cannula 2.0 07/20/18 20:00 98.2 72 14 159/87 99 Nasal Cannula 2.0 07/20/18 19:36 91 16 99 Nasal Cannula 3.0 32 07/20/18 19:26 68 17 94 Nasal Cannula 3.0 32 07/20/18 19:26 94 Nasal Cannula 3.0 32 07/20/18 19:26 Nasal Cannula 3.0 32 07/20/18 19:10 70 07/20/18 16:08 Nasal Cannula 2.0 07/20/18 16:00 98.4 74 17 154/93 96 Nasal Cannula 2.0 07/20/18 16:00 71 07/20/18 15:20 77 16 100 Nasal Cannula 2.0 28 07/20/18 15:14 36 07/20/18 15:14 76 16 98 Nasal Cannula 2.0 28 07/20/18 12:00 98.6 84 16 134/64 98 Nasal Cannula 2.0 07/20/18 12:00 Nasal Cannula 2.0 07/20/18 12:00 82 07/20/18 10:42 73 16 100 Nasal Cannula 2.0 28 07/20/18 10:36 77 16 99 Nasal Cannula 2.0 28 07/20/18 10:36 36 Height (Feet): 5 Height (Inches): 6.00 Weight (Pounds): 154 Respiratory/Chest: lungs clear Cardiovascular: normal rate, regular rhythm, no gallop/murmur Abdomen: soft, non tender Extremities: other - + edema Microbiology Date/Time Source Procedure Growth Status 07/19/18 04:50 Sputum Gram Stain - Final Complete 07/19/18 04:50 Sputum Culture - Final Jazzy Albicans Complete Laboratory Tests Test 07/21/18 03:30 Sodium Level 146 MMOL/L (136-145) H Potassium Level 3.8 MMOL/L (3.5-5.1) Chloride Level 110 MMOL/L (98-107) H Carbon Dioxide Level 30 MMOL/L (21-32) Anion Gap 6 mmol/L (5-15) Blood Urea Nitrogen 31 mg/dL (7-18) H Creatinine 0.7 MG/DL (0.55-1.30) Estimat Glomerular Filtration Rate mL/min (>60) Glucose Level 94 MG/DL (74-106) Calcium Level 8.3 MG/DL (8.5-10.1) L Magnesium Level 2.1 MG/DL (1.8-2.4) Total Bilirubin 0.4 MG/DL (0.2-1.0) Aspartate Amino Transf (AST/SGOT) 24 U/L (15-37) Alanine Aminotransferase (ALT/SGPT) 15 U/L (12-78) Alkaline Phosphatase 136 U/L (46-116) H Total Protein 5.0 G/DL (6.4-8.2) L Albumin 2.1 G/DL (3.4-5.0) L Globulin 2.9 g/dL Albumin/Globulin Ratio 0.7 (1.0-2.7) L Current Medications Medications (Trade) Dose Ordered Sig/Sukhi Route PRN Reason Start Time Stop Time Status Last Admin Dose Admin Albuterol/ Ipratropium (Albuterol/ Ipratropium) 3 ml Q4HRT HHN 07/17/18 15:00 07/22/18 14:59 07/21/18 03:20 Amiodarone HCl (Cordarone) 200 mg BID ORAL 07/20/18 09:00 08/19/18 08:59 07/21/18 08:28 Ascorbic Acid (Vitamin C) 500 mg DAILY ORAL 07/20/18 09:00 08/19/18 08:59 07/21/18 08:29 Aspirin (Ecotrin) 81 mg DAILY ORAL 07/18/18 09:00 08/17/18 08:59 07/21/18 08:22 Atenolol (Tenormin) 50 mg DAILY ORAL 07/18/18 09:00 08/17/18 08:59 07/21/18 08:26 Atorvastatin Calcium (Lipitor) 20 mg BEDTIME ORAL 07/17/18 21:00 08/16/18 20:59 07/20/18 20:49 Bisacodyl (Dulcolax) 5 mg DAILYPRN PRN ORAL Constipation 07/18/18 17:15 08/17/18 17:14 07/18/18 17:29 Docusate Sodium (Colace) 100 mg EVERY 12 HOURS ORAL 07/18/18 21:00 08/17/18 08:59 07/21/18 08:29 Fluconazole (Diflucan) 100 mg DAILY ORAL 07/20/18 11:00 07/27/18 10:59 07/21/18 08:28 Heparin Sodium (Porcine) (Heparin 5000 units/ml) 5,000 units EVERY 12 HOURS SUBQ 07/17/18 21:00 08/16/18 20:59 07/21/18 08:31 Latanoprost (Xalatan) 1 drop BEDTIME BOTH EYES 07/17/18 21:00 08/16/18 20:59 07/20/18 20:48 Losartan Potassium (Cozaar) 100 mg DAILY ORAL 07/18/18 09:00 08/17/18 08:59 07/21/18 08:28 Magnesium Hydroxide (Mom) 30 ml HSPRN PRN ORAL Constipation 07/18/18 16:15 08/17/18 16:14 Meropenem 1 gm/ Sodium Chloride 55 ml @ 110 mls/hr Q12HR IVPB 07/19/18 13:30 07/24/18 13:29 07/21/18 08:21 Multivitamins (Multivitamins) 1 tab DAILY ORAL 07/20/18 09:00 08/19/18 08:59 07/21/18 08:28 Tamsulosin HCl (Flomax) 0.4 mg BEDTIME ORAL 07/17/18 21:00 08/16/18 20:59 07/20/18 20:49 Vitamin D (Vitamin D) 5,000 intlu DAILY ORAL 07/18/18 09:00 08/17/18 08:59 07/21/18 08:36 Kathryn Howell MD Jul 21, 2018 10:24"
--- NOTE | 2018-07-21 10:24 | NUR ---
RD ASSESSMENT & RECOMMENDATIONS SEE CARE ACTIVITY FOR COMPLETE ASSESSMENT DAILY ESTIMATED NEEDS: Needs based on Wounds, 59kg adj 30-35 kcals/kg 0617-5472 total kcals 1.25-1.5 g protein/kg 74-89 g total protein Fluid per MD, on lasix NUTRITION DIAGNOSIS: Increased kcal and protein needs r/t wound healing as evidenced by pt w/ sacral open DTI and BL heels with non-blanchable erythema. PO DIET RECOMMENDATIONS: LOW NA DIET / CCHO MED (texture per NETSUITE CONSULTANT) ADDITIONAL RECOMMENDATIONS: 1) Wound care: add MVI x1 + Vit C 250mg daily + CHACORTA BID 2) Monitor BG w/ iss as needed (pt on solumedrol, BG 147) 3) High protein snack in b/w meals + Glucerna 1 tetra diego daily 4) Pt advanced age, rec NETSUITE CONSULTANT eval for appropriate texture and dx PNA 5) Monitor po intake, need for supplements-> variable 6) On lasix, monitor lytes daily 7) TXR pt to be with scale
--- NOTE | 2018-07-21 10:49 | Diagnostic Imaging Report ---
Indication: Shortness of breath Technique: One view of the chest Comparison: 07/19/2018 Findings: The heart is enlarged. Left hemidiaphragm is obscured, as previously. Hazy opacity at the right lung base probably reflects overlapping soft tissue shadows. The aorta is tortuous, calcified, ectatic and possibly aneurysmal. Findings are unchanged Impression: Left basilar parenchymal disease and/or pleural fluid, unchanged over 2 days Cardiomegaly Ectatic and possibly aneurysmal thoracic aorta
--- NOTE | 2018-07-21 10:58 | General Progress Note ---
Assessment/Plan Problem List: (1) Respiratory distress ICD Codes: R06.03 - Acute respiratory distress SNOMED: 959546937 (2) Pneumonia ICD Codes: J18.9 - Pneumonia, unspecified organism SNOMED: 805336776 (3) SOB (shortness of breath) ICD Codes: R06.02 - Shortness of breath SNOMED: 800356559 (4) Sacral decubitus ulcer ICD Codes: L89.159 - Pressure ulcer of sacral region, unspecified stage SNOMED: 377474714 (5) Failure to thrive SNOMED: 58784741 Qualifiers: Qualified Codes: R62.7 - Adult failure to thrive Status: stable, progressing Assessment/Plan iv abx o2 resp rx monitor cxr wound care diuresis per cards repeat cxr Subjective ROS Limited/Unobtainable: No Constitutional: Reports: malaise, weakness HEENT: Reports: no symptoms Cardiovascular: Reports: no symptoms Respiratory: Reports: cough, shortness of breath Gastrointestinal/Abdominal: Reports: no symptoms Genitourinary: Reports: no symptoms Neurologic/Psychiatric: Reports: pre-existing deficit Endocrine: Reports: no symptoms Hematologic/Lymphatic: Reports: anemia Allergies: Coded Allergies: No Known Allergies (Unverified , 07/17/18) All Systems: reviewed and negative except above Subjective no events. up in bed. eating breakfast. decreased sob Objective Last 24 Hour Vital Signs Date Time Temp Pulse Resp B/P (MAP) Pulse Ox O2 Delivery O2 Flow Rate FiO2 07/21/18 08:28 153/95 07/21/18 08:26 70 153/95 07/21/18 08:00 98.3 70 19 153/95 98 Nasal Cannula 2.0 07/21/18 08:00 Nasal Cannula 2.0 07/21/18 08:00 69 07/21/18 07:05 Nasal Cannula 3.0 32 07/21/18 07:05 Nasal Cannula 3.0 32 07/21/18 07:00 Nasal Cannula 2.0 28 07/21/18 07:00 94 Nasal Cannula 2.0 28 07/21/18 04:00 Nasal Cannula 2.0 07/21/18 04:00 98.0 67 16 155/84 96 Nasal Cannula 2.0 07/21/18 03:39 72 07/21/18 03:30 68 15 99 Nasal Cannula 3.0 32 07/21/18 03:20 68 17 95 Nasal Cannula 3.0 32 07/21/18 00:00 Nasal Cannula 2.0 07/21/18 00:00 98.0 76 14 135/79 99 Nasal Cannula 2.0 07/20/18 23:41 72 07/20/18 23:13 72 16 99 Nasal Cannula 3.0 32 07/20/18 23:03 70 14 97 Nasal Cannula 3.0 32 07/20/18 21:00 Nasal Cannula 2.0 07/20/18 20:00 98.2 72 14 159/87 99 Nasal Cannula 2.0 07/20/18 19:36 91 16 99 Nasal Cannula 3.0 32 07/20/18 19:26 68 17 94 Nasal Cannula 3.0 32 07/20/18 19:26 94 Nasal Cannula 3.0 32 07/20/18 19:26 Nasal Cannula 3.0 32 07/20/18 19:10 70 07/20/18 16:08 Nasal Cannula 2.0 07/20/18 16:00 98.4 74 17 154/93 96 Nasal Cannula 2.0 07/20/18 16:00 71 07/20/18 15:20 77 16 100 Nasal Cannula 2.0 28 07/20/18 15:14 36 07/20/18 15:14 76 16 98 Nasal Cannula 2.0 28 07/20/18 12:00 98.6 84 16 134/64 98 Nasal Cannula 2.0 07/20/18 12:00 Nasal Cannula 2.0 07/20/18 12:00 82 Intake and Output 07/20/18 07/21/18 19:00 07:00 Intake Total 620 ml 295 ml Output Total 800 ml 350 ml Balance -180 ml -55 ml Intake Oral 620 ml 240 ml IV Total 55 ml Output Urine Total 800 ml 350 ml # Bowel Movements 1 Laboratory Tests 07/21/18 03:30: Sodium Level 146H, Potassium Level 3.8, Chloride Level 110H, Carbon Dioxide Level 30, Anion Gap 6, Blood Urea Nitrogen 31H, Creatinine 0.7, Estimat Glomerular Filtration Rate , Glucose Level 94, Calcium Level 8.3L, Magnesium Level 2.1, Total Bilirubin 0.4, Aspartate Amino Transf (AST/SGOT) 24, Alanine Aminotransferase (ALT/SGPT) 15, Alkaline Phosphatase 136H, Total Protein 5.0L, Albumin 2.1L, Globulin 2.9, Albumin/Globulin Ratio 0.7L Height (Feet): 5 Height (Inches): 6.00 Weight (Pounds): 154 Objective General Appearance: WD/WN, alert Neck: supple Cardiovascular: normal peripheral pulses, normal rate, regular rhythm Respiratory/Chest: rhonchi - bilaterally Abdomen: normal bowel sounds, non tender, soft, no organomegaly Edema: no edema noted Arm (L), no edema noted Arm (R), no edema noted Leg (L), no edema noted Leg (R), no edema noted Pedal (L), no edema noted Pedal (R), no edema noted Generalized Neurologic: professional nurse II-XII grossly normal, no motor/sensory deficits, alert, responsive Lars Rebolledo MD Jul 21, 2018 10:58
--- NOTE | 2018-07-21 11:09 | NUR ---
NURSE NOTES: Pt pulled up,turned and repositioned for comfort,no resp distress presented.
--- NOTE | 2018-07-21 13:00 | NUR ---
NURSE NOTES: Family at bedside spoke with pt's son Orville Johansen,verbalized re their preference for pt to go [facility] instead of [facility].
--- NOTE | 2018-07-21 13:06 | Surgery Progress Note ---
Surgery Progress Note Objective Last 24 Hour Vital Signs Date Time Temp Pulse Resp B/P (MAP) Pulse Ox O2 Delivery O2 Flow Rate FiO2 07/21/18 11:28 73 16 100 Nasal Cannula 3.0 32 07/21/18 11:20 69 18 98 Nasal Cannula 3.0 32 07/21/18 08:28 153/95 07/21/18 08:26 70 153/95 07/21/18 08:00 98.3 70 19 153/95 98 Nasal Cannula 2.0 07/21/18 08:00 Nasal Cannula 2.0 07/21/18 08:00 69 07/21/18 07:05 Nasal Cannula 3.0 32 07/21/18 07:05 Nasal Cannula 3.0 32 07/21/18 07:00 Nasal Cannula 2.0 28 07/21/18 07:00 94 Nasal Cannula 2.0 28 07/21/18 04:00 Nasal Cannula 2.0 07/21/18 04:00 98.0 67 16 155/84 96 Nasal Cannula 2.0 07/21/18 03:39 72 07/21/18 03:30 68 15 99 Nasal Cannula 3.0 32 07/21/18 03:20 68 17 95 Nasal Cannula 3.0 32 07/21/18 00:00 Nasal Cannula 2.0 07/21/18 00:00 98.0 76 14 135/79 99 Nasal Cannula 2.0 07/20/18 23:41 72 07/20/18 23:13 72 16 99 Nasal Cannula 3.0 32 07/20/18 23:03 70 14 97 Nasal Cannula 3.0 32 07/20/18 21:00 Nasal Cannula 2.0 07/20/18 20:00 98.2 72 14 159/87 99 Nasal Cannula 2.0 07/20/18 19:36 91 16 99 Nasal Cannula 3.0 32 07/20/18 19:26 68 17 94 Nasal Cannula 3.0 32 07/20/18 19:26 94 Nasal Cannula 3.0 32 07/20/18 19:26 Nasal Cannula 3.0 32 07/20/18 19:10 70 07/20/18 16:08 Nasal Cannula 2.0 07/20/18 16:00 98.4 74 17 154/93 96 Nasal Cannula 2.0 07/20/18 16:00 71 07/20/18 15:20 77 16 100 Nasal Cannula 2.0 28 07/20/18 15:14 36 07/20/18 15:14 76 16 98 Nasal Cannula 2.0 28 I&O Intake and Output 07/20/18 07/21/18 19:00 07:00 Intake Total 620 ml 295 ml Output Total 800 ml 350 ml Balance -180 ml -55 ml Intake Oral 620 ml 240 ml IV Total 55 ml Output Urine Total 800 ml 350 ml # Bowel Movements 1 Dressing: dry Wound: clean Drains: other Cardiovascular: RSR Respiratory: clear Abdomen: soft, non-tender, present bowel sounds, non-distended Extremities: other Laboratory Tests Test 07/21/18 03:30 Sodium Level 146 MMOL/L (136-145) H Potassium Level 3.8 MMOL/L (3.5-5.1) Chloride Level 110 MMOL/L (98-107) H Carbon Dioxide Level 30 MMOL/L (21-32) Anion Gap 6 mmol/L (5-15) Blood Urea Nitrogen 31 mg/dL (7-18) H Creatinine 0.7 MG/DL (0.55-1.30) Estimat Glomerular Filtration Rate mL/min (>60) Glucose Level 94 MG/DL (74-106) Calcium Level 8.3 MG/DL (8.5-10.1) L Magnesium Level 2.1 MG/DL (1.8-2.4) Total Bilirubin 0.4 MG/DL (0.2-1.0) Aspartate Amino Transf (AST/SGOT) 24 U/L (15-37) Alanine Aminotransferase (ALT/SGPT) 15 U/L (12-78) Alkaline Phosphatase 136 U/L (46-116) H Total Protein 5.0 G/DL (6.4-8.2) L Albumin 2.1 G/DL (3.4-5.0) L Globulin 2.9 g/dL Albumin/Globulin Ratio 0.7 (1.0-2.7) L Plan Problems: (1) Sacral decubitus ulcer Assessment & Plan: Pt presented on admission with DTPI sacrum extending down to R and L lower buttocks with (2) openings at R of sacral wound. Base of wound indurated, maroon in colour with red tinged borders . Both openings beefy red in colour with minimal serosanguineous exudate .No odor noted. Pt verbalized tenderness when sacral area minimally palpated. Non-blanchable erythema without induration noted periwound.(L)14.5cm x (W)11cm. Both heels are fluctuant with non-blanchable erythema. Pt verbalized tenderness when both heels are minimally palpated. Pt is alert and has been educated on wound prevention. Pt encouraged to frequently reposition side to side at least hourly. Tx.Plan: Apply Triad Paste to Sacrum/ buttocks .Cover Sacral area with Optifoam drsg .Change every 3 days and prn. Apply Cavilon Skin Barrier to both heels. Cover each heel with Optifoam drsg.Change every 7 days and prn. Encourage and assist with repositioning at least every 2hours or as tolerated. Off-load heels with Pillow. APM/ANA PAULA mattress. (2) Failure to thrive Assessment & Plan: Hypoalbuminemia Nutritional status poor will need improved nutrition for proper wound healing nutrition consult for goals diet as tolerated encourage oral intake. DAILY ESTIMATED NEEDS: Needs based on Wounds, 59kg adj 30-35 kcals/kg 5475-9893 total kcals 1.25-1.5 g protein/kg 74-89 g total protein Fluid per MD, on lasix NUTRITION DIAGNOSIS: Increased kcal and protein needs r/t wound healing as evidenced by pt w/ sacral open DTI and BL heels with non-blanchable erythema. CURRENT DIET: Cardiac/ CCHO MED PO DIET RECOMMENDATIONS: LOW NA DIET / CCHO MED (texture per P[employer]EEF) ADDITIONAL RECOMMENDATIONS: 1) Wound care: add MVI x1 + Vit C 250mg daily + CHACORTA BID 2) Monitor BG w/ iss as needed (pt on solumedrol, BG 147) 3) High protein snack in b/w meals 4) Pt advanced age, rec P[employer] BEEF eval for appropriate texture and dx PNA 5) Monitor po intake, need for supplements 6) On lasix, monitor lytes daily 7) TXR pt to be with scale. Rob Payne Jul 21, 2018 13:06
--- NOTE | 2018-07-21 17:00 | NUR ---
NURSE NOTES: Bed bath given kept dry and clean,turned and repositioned.
--- NOTE | 2018-07-21 18:49 | NUR ---
CASE MANAGEMENT: REVIEW SI: A-FIB . PNA. SACRAL DECUBITUS ULCER T 97.5 HR 89 RR 18 BP 160/76 SAT 99% NC/2L NA 146 BUN 31 IS: AMIODARONE PO BID MEROPENEM IV Q12HR DIFLUCAN PO QD STEP DOWN UNIT STATUS' DCP: [facility]
--- NOTE | 2018-07-21 19:27 | NUR ---
HAND-OFF: Report given to Bakari Hernandez RN..
--- NOTE | 2018-07-21 19:50 | NUR ---
NURSE NOTES: PATIENT ALERT, ORIENTEDX4, FORGETFUL TO SITUATION, PT'S SON STAYED AT BEDSIDE. RESPIRATION REGULAR, ON O2 2LPM VIA NC, O2 SATURATION OVER 985 NOTED, ABDOMEN SOFT, HYPOACTIVE BOWEL SOUND TO 4 QUADRANTS, NO BOWEL MOVEMENT STATUS, PURE WICK FOR URINATION, YELLOW URINE OUTED, PERIPHERAL LINE TO LEFT FA 22G, INTACT AND PATENT, ON QUARTET BED, MADE LOWER BED POSITION, PROVIDED CALL LIGHT WITHIN REACH, WILL CONTINUE TO MONITOR.
[2018-07-21] MEDS: Latanoprost 0.005% Opth 2.5ml Soln BOTH EYES SCH (20:47)
[2018-07-21] MEDS: Tamsulosin 0.4mg cap ORAL SCH (20:47)
[2018-07-21] MEDS: Atorvastatin 20mg tab ORAL SCH (20:47)
--- NOTE | 2018-07-21 22:00 | NUR ---
NURSE NOTES: REPOSITIONED, NO DISTRESS NOTED AT THIS TIME.
[2018-07-22] VITALS: BP 107/75
--- NOTE | 2018-07-22 00:04 | NUR ---
NURSE NOTES: PATIENT ASLEEP STATUS.
--- NOTE | 2018-07-22 02:30 | NUR ---
NURSE NOTES: NO PAIN OR DISTRESS NOTED AT THIS TIME.
[2018-07-22] MEDS: Albuterol/Ipratropium 3ml neb HHN SCH ×3 (03:10→11:36)
[2018-07-22 04:00] VITALS: BP 154/75
--- NOTE | 2018-07-22 04:10 | NUR ---
NURSE NOTES: MORNING CARE WAS DONE, WILL CONTINUE PLAN OF CARE.
--- NOTE | 2018-07-22 06:10 | NUR ---
NURSE NOTES: NO ACUTE DISTRESS NOTED AT THIS SHIFT.
--- NOTE | 2018-07-22 07:30 | NUR ---
HAND-OFF: Report given to ANTOINE WALTON.
--- NOTE | 2018-07-22 07:42 | NUR ---
NURSE NOTES: Received patient from Chase Hernandez RN. Patient was asleep receiving breathing treatment. Patient is on a Purewick, intact and patent. Patient has Left forearm 22-gauge. Bed is locked, side rails up x3, and placed in lowest position with call light in reach. Will Continue to monitor.
[2018-07-22 08:00] VITALS: BP 144/80
[2018-07-22] MEDS: Meropenem 1 GM in NS 55 ML IVPB SCH ×2 (09:30→20:18)
[2018-07-22] MEDS: Vitamin D 1000 IU Tab ORAL SCH (09:30)
[2018-07-22] MEDS: Aspirin EC 81mg tab ORAL SCH (09:31)
[2018-07-22] MEDS: Losartan 50mg tab ORAL SCH (09:32)
[2018-07-22] MEDS: Fluconazole 100mg tab ORAL SCH (09:33)
[2018-07-22] MEDS: Docusate 100mg cap ORAL SCH ×2 (09:33→20:18)
[2018-07-22] MEDS: Amiodarone 200mg tab ORAL SCH ×2 (09:33→18:06)
[2018-07-22] MEDS: Ascorbic Acid 500mg tab ORAL SCH (09:33)
[2018-07-22] MEDS: Heparin 5000 units/ml inj SUBQ SCH ×2 (09:34→20:20)
--- NOTE | 2018-07-22 11:34 | General Progress Note ---
Assessment/Plan Problem List: (1) Respiratory distress ICD Codes: R06.03 - Acute respiratory distress SNOMED: 520304833 (2) Pneumonia ICD Codes: J18.9 - Pneumonia, unspecified organism SNOMED: 094126415 (3) SOB (shortness of breath) ICD Codes: R06.02 - Shortness of breath SNOMED: 591234162 (4) Sacral decubitus ulcer ICD Codes: L89.159 - Pressure ulcer of sacral region, unspecified stage SNOMED: 939620292 (5) Failure to thrive SNOMED: 20989603 Qualifiers: Qualified Codes: R62.7 - Adult failure to thrive Status: stable, progressing Assessment/Plan iv abx o2 resp rx monitor cxr wound care diuresis per cards repeat cxr Subjective ROS Limited/Unobtainable: No Constitutional: Reports: malaise, weakness HEENT: Reports: no symptoms Cardiovascular: Reports: no symptoms Respiratory: Reports: cough, shortness of breath Gastrointestinal/Abdominal: Reports: no symptoms Genitourinary: Reports: no symptoms Neurologic/Psychiatric: Reports: pre-existing deficit Endocrine: Reports: no symptoms Hematologic/Lymphatic: Reports: anemia Allergies: Coded Allergies: No Known Allergies (Unverified , 07/17/18) All Systems: reviewed and negative except above Subjective no events. up in bed. eating breakfast. decreased sob remains on iv abx. Objective Last 24 Hour Vital Signs Date Time Temp Pulse Resp B/P (MAP) Pulse Ox O2 Delivery O2 Flow Rate FiO2 07/22/18 09:32 144/81 07/22/18 09:31 81 144/80 07/22/18 08:21 77 16 Nasal Cannula 2.0 28 07/22/18 08:19 Nasal Cannula 2.0 28 07/22/18 08:19 99 Nasal Cannula 2.0 28 07/22/18 08:00 Nasal Cannula 2.0 07/22/18 08:00 97.9 81 16 144/80 100 Nasal Cannula 2.0 07/22/18 07:48 81 07/22/18 07:23 74 16 100 Nasal Cannula 2.0 28 07/22/18 07:13 67 17 99 Nasal Cannula 2.0 28 07/22/18 04:00 Nasal Cannula 2.0 07/22/18 04:00 98.3 75 16 154/75 94 Nasal Cannula 2.0 07/22/18 03:47 75 07/22/18 03:18 68 15 100 Nasal Cannula 2.0 28 07/22/18 03:10 71 19 100 Nasal Cannula 2.0 28 07/22/18 00:00 97.3 75 18 107/75 96 Nasal Cannula 2.0 07/22/18 00:00 Nasal Cannula 2.0 07/21/18 23:25 73 07/21/18 22:44 69 16 100 Nasal Cannula 2.0 28 07/21/18 22:36 70 18 94 Nasal Cannula 2.0 28 07/21/18 21:00 76 143/75 Nasal Cannula 2.0 07/21/18 20:48 74 07/21/18 20:00 97.7 68 15 170/75 100 Nasal Cannula 2.0 07/21/18 20:00 68 16 98 Nasal Cannula 2.0 28 07/21/18 20:00 Nasal Cannula 2.0 07/21/18 19:52 63 16 100 Nasal Cannula 2.0 28 07/21/18 19:52 100 Nasal Cannula 2.0 28 07/21/18 19:52 Nasal Cannula 2.0 28 07/21/18 16:16 Nasal Cannula 2.0 07/21/18 16:00 69 07/21/18 16:00 97.5 89 18 160/76 99 Nasal Cannula 2.0 07/21/18 15:16 71 18 100 Nasal Cannula 3.0 32 07/21/18 15:10 76 18 97 Nasal Cannula 3.0 32 07/21/18 12:00 97.6 64 18 174/91 99 Nasal Cannula 2.0 07/21/18 12:00 Nasal Cannula 2.0 07/21/18 12:00 69 Intake and Output 07/21/18 07/22/18 19:00 07:00 Intake Total 480 ml 275 ml Output Total 250 ml 150 ml Balance 230 ml 125 ml Intake Oral 480 ml 220 ml IV Total 55 ml Output Urine Total 250 ml 150 ml # Voids 1 Height (Feet): 5 Height (Inches): 6.00 Weight (Pounds): 154 Objective General Appearance: WD/WN, alert Neck: supple Cardiovascular: normal peripheral pulses, normal rate, regular rhythm Respiratory/Chest: rhonchi - bilaterally Abdomen: normal bowel sounds, non tender, soft, no organomegaly Edema: no edema noted Arm (L), no edema noted Arm (R), no edema noted Leg (L), no edema noted Leg (R), no edema noted Pedal (L), no edema noted Pedal (R), no edema noted 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
[2018-07-22 12:00] VITALS: BP 140/88
[2018-07-22] MEDS: Bisacodyl EC 5mg tab ORAL PRN (12:54)
--- NOTE | 2018-07-22 14:48 | Surgery Progress Note ---
Surgery Progress Note Subjective Additional Comments no acute events. comfortable. exam unchanged. not moving much. diuresis Objective Last 24 Hour Vital Signs Date Time Temp Pulse Resp B/P (MAP) Pulse Ox O2 Delivery O2 Flow Rate FiO2 07/22/18 12:00 Nasal Cannula 2.0 07/22/18 12:00 97.5 71 16 140/88 100 Nasal Cannula 2.0 07/22/18 11:57 74 07/22/18 11:48 69 14 100 Nasal Cannula 2.0 28 07/22/18 11:36 72 16 100 Nasal Cannula 2.0 28 07/22/18 09:32 144/81 07/22/18 09:31 81 144/80 07/22/18 08:21 77 16 Nasal Cannula 2.0 28 07/22/18 08:19 Nasal Cannula 2.0 28 07/22/18 08:19 99 Nasal Cannula 2.0 28 07/22/18 08:00 Nasal Cannula 2.0 07/22/18 08:00 97.9 81 16 144/80 100 Nasal Cannula 2.0 07/22/18 07:48 81 07/22/18 07:23 74 16 100 Nasal Cannula 2.0 28 07/22/18 07:13 67 17 99 Nasal Cannula 2.0 28 07/22/18 04:00 Nasal Cannula 2.0 07/22/18 04:00 98.3 75 16 154/75 94 Nasal Cannula 2.0 07/22/18 03:47 75 07/22/18 03:18 68 15 100 Nasal Cannula 2.0 28 07/22/18 03:10 71 19 100 Nasal Cannula 2.0 28 07/22/18 00:00 97.3 75 18 107/75 96 Nasal Cannula 2.0 07/22/18 00:00 Nasal Cannula 2.0 07/21/18 23:25 73 07/21/18 22:44 69 16 100 Nasal Cannula 2.0 28 07/21/18 22:36 70 18 94 Nasal Cannula 2.0 28 07/21/18 21:00 76 143/75 Nasal Cannula 2.0 07/21/18 20:48 74 07/21/18 20:00 97.7 68 15 170/75 100 Nasal Cannula 2.0 07/21/18 20:00 68 16 98 Nasal Cannula 2.0 28 07/21/18 20:00 Nasal Cannula 2.0 07/21/18 19:52 63 16 100 Nasal Cannula 2.0 28 07/21/18 19:52 100 Nasal Cannula 2.0 28 07/21/18 19:52 Nasal Cannula 2.0 28 07/21/18 16:16 Nasal Cannula 2.0 07/21/18 16:00 69 07/21/18 16:00 97.5 89 18 160/76 99 Nasal Cannula 2.0 07/21/18 15:16 71 18 100 Nasal Cannula 3.0 32 07/21/18 15:10 76 18 97 Nasal Cannula 3.0 32 I&O Intake and Output 07/21/18 07/22/18 19:00 07:00 Intake Total 480 ml 275 ml Output Total 250 ml 150 ml Balance 230 ml 125 ml Intake Oral 480 ml 220 ml IV Total 55 ml Output Urine Total 250 ml 150 ml # Voids 1 Dressing: other Wound: clean Drains: other Cardiovascular: RSR Respiratory: decreased breath sounds Abdomen: soft, non-tender, present bowel sounds Extremities: no tenderness, no cyanosis Plan Problems: (1) Sacral decubitus ulcer Assessment & Plan: Pt presented on admission with DTPI sacrum extending down to R and L lower buttocks with (2) openings at R of sacral wound. Base of wound indurated, maroon in colour with red tinged borders . Both openings beefy red in colour with minimal serosanguineous exudate .No odor noted. Pt verbalized tenderness when sacral area minimally palpated. Non-blanchable erythema without induration noted periwound.(L)14.5cm x (W)11cm. Both heels are fluctuant with non-blanchable erythema. Pt verbalized tenderness when both heels are minimally palpated. Pt is alert and has been educated on wound prevention. Pt encouraged to frequently reposition side to side at least hourly. Tx.Plan: Apply Triad Paste to Sacrum/ buttocks .Cover Sacral area with Optifoam drsg .Change every 3 days and prn. Apply Cavilon Skin Barrier to both heels. Cover each heel with Optifoam drsg.Change every 7 days and prn. Encourage and assist with repositioning at least every 2hours or as tolerated. Off-load heels with Pillow. APM/ANA PAULA mattress. (2) Failure to thrive Assessment & Plan: Hypoalbuminemia Nutritional status poor will need improved nutrition for proper wound healing nutrition consult for goals diet as tolerated encourage oral intake. DAILY ESTIMATED NEEDS: Needs based on Wounds, 59kg adj 30-35 kcals/kg 9305-4483 total kcals 1.25-1.5 g protein/kg 74-89 g total protein Fluid per MD, on lasix NUTRITION DIAGNOSIS: Increased kcal and protein needs r/t wound healing as evidenced by pt w/ sacral open DTI and BL heels with non-blanchable erythema. CURRENT DIET: Cardiac/ CCHO MED PO DIET RECOMMENDATIONS: LOW NA DIET / CCHO MED (texture per [employer] OPERATOR) ADDITIONAL RECOMMENDATIONS: 1) Wound care: add MVI x1 + Vit C 250mg daily + CHACORTA BID 2) Monitor BG w/ iss as needed (pt on solumedrol, BG 147) 3) High protein snack in b/w meals 4) Pt advanced age, rec [employer] PU[employer] OPERATOR eval for appropriate texture and dx PNA 5) Monitor po intake, need for supplements 6) On lasix, monitor lytes daily 7) TXR pt to be with scale. Rob Payne Jul 22, 2018 14:48
[2018-07-22 16:00] VITALS: BP 161/82
--- NOTE | 2018-07-22 19:26 | NUR ---
HAND-OFF: Report given to Amando Ball RN. Patient still has not had BM after Dulcolax given. Nurse made aware that patient has Milk of Magnesia available HSPRN.
--- NOTE | 2018-07-22 19:27 | NUR ---
NURSE NOTES: Received patient from ANTOINE Chang. Will continue plan of care.
[2018-07-22] MEDS ORDERED: Tubing IV Secondary IV ONE (19:48)
[2018-07-22] MEDS ORDERED: NS 275ml ONE (19:48)
[2018-07-22 20:00] VITALS: BP 174/82
[2018-07-22] MEDS: Tamsulosin 0.4mg cap ORAL SCH (20:18)
[2018-07-22] MEDS: Atorvastatin 20mg tab ORAL SCH (20:18)
[2018-07-22] MEDS: Latanoprost 0.005% Opth 2.5ml Soln BOTH EYES SCH (20:18)
[2018-07-23] VITALS (7 sets, daily range): BP systolic 136–173; BP diastolic 75–88
--- NOTE | 2018-07-23 06:00 | NUR ---
NURSE NOTES: Patient had another BM. Sacral dressing changed. Addendum: 07/24/18 at 0802 by KISHA GARCIA RN RN wrong date and time. disregard.
[2018-07-23 06:32] LABS: BASOPHILS % (AUTO) 0.4 % (0.0-2.0); EOSINOPHILS % (AUTO) 1.5 % (0.0-3.0); HEMATOCRIT 28.8 % (37.0-47.0); HEMOGLOBIN 8.6 G/DL (12.0-16.0); LYMPHOCYTES % (AUTO) 15.8 % (20.0-45.0); MEAN CORPUSCULAR VOLUME 98 FL (80-99); MONOCYTES % (AUTO) 6.3 % (1.0-10.0); NEUTROPHILS % (AUTO) 76.1 % (45.0-75.0); PLATELET COUNT 165 K/UL (150-450); RED BLOOD COUNT 2.93 M/UL (4.20-5.40); RED CELL DISTRIBUTION WIDTH 15.4 % (11.6-14.8); WHITE BLOOD COUNT 6.8 K/UL (4.8-10.8)
[2018-07-23 06:58] LABS: ALANINE AMINOTRANSFERASE 16 U/L (12-78); ALBUMIN 1.9 G/DL (3.4-5.0); ALBUMIN/GLOBULIN RATIO 0.7 (1.0-2.7); ALKALINE PHOSPHATASE 119 U/L (46-116); ANION GAP 4 mmol/L (5-15); ASPARTATE AMINO TRANSFERASE 34 U/L (15-37); BILIRUBIN,TOTAL 0.5 MG/DL (0.2-1.0); BLOOD UREA NITROGEN 20 mg/dL (7-18); CALCIUM 8.1 MG/DL (8.5-10.1); CARBON DIOXIDE 32 MMOL/L (21-32); CHLORIDE 110 MMOL/L (98-107); CREATININE 0.4 MG/DL (0.55-1.30); POTASSIUM 4.1 MMOL/L (3.5-5.1); SODIUM 146 MMOL/L (136-145)
--- NOTE | 2018-07-23 07:15 | NUR ---
HAND-OFF: Report given to Delores Garcia RN.
[2018-07-23] MEDS: Meropenem 1 GM in NS 55 ML IVPB SCH ×2 (09:21→22:28)
[2018-07-23] MEDS: Vitamin D 1000 IU Tab ORAL SCH (09:22)
[2018-07-23] MEDS: Aspirin EC 81mg tab ORAL SCH (09:22)
[2018-07-23] MEDS: Fluconazole 100mg tab ORAL SCH (09:22)
[2018-07-23] MEDS: Docusate 100mg cap ORAL SCH ×3 (09:22→21:35)
[2018-07-23] MEDS: Ascorbic Acid 500mg tab ORAL SCH (09:22)
[2018-07-23] MEDS: Losartan 50mg tab ORAL SCH (09:23)
[2018-07-23] MEDS: Amiodarone 200mg tab ORAL SCH ×2 (09:23→19:05)
[2018-07-23] MEDS: Heparin 5000 units/ml inj SUBQ SCH ×2 (09:24→21:38)
--- NOTE | 2018-07-23 10:31 | Infectious Diseases Prog Note ---
Assessment/Plan Assessment/Plan A: 1. E. coli ESBL & Jazzy UTI. 2. Pneumonia. 3. Hypertension. 4. Asthma 5. Anemia 6.Atrial fibrillation PLAN: 1. Continue Meropenem X 2 days 2. Continue Fluconazole X 3 days Subjective ROS Limited/Unobtainable: Yes Respiratory: Reports: no symptoms Cardiovascular: Reports: no symptoms Gastrointestinal/Abdominal: Reports: no symptoms Allergies: Coded Allergies: No Known Allergies (Unverified , 07/17/18) Objective Vital Signs Last 24 Hour Vital Signs Date Time Temp Pulse Resp B/P (MAP) Pulse Ox O2 Delivery O2 Flow Rate FiO2 07/23/18 09:23 139/88 07/23/18 09:22 67 139/88 07/23/18 08:00 Nasal Cannula 2.0 07/23/18 08:00 97.5 67 16 139/88 100 Nasal Cannula 2.0 07/23/18 08:00 78 07/23/18 06:50 Nasal Cannula 2.0 28 07/23/18 06:50 100 Nasal Cannula 2.0 28 07/23/18 04:00 98.3 73 20 156/86 100 Nasal Cannula 2.0 07/23/18 04:00 Nasal Cannula 2.0 07/23/18 03:36 67 07/23/18 00:00 98.2 79 16 136/76 99 Nasal Cannula 2.0 07/23/18 00:00 Nasal Cannula 2.0 07/22/18 23:52 73 07/22/18 20:00 Nasal Cannula 2.0 07/22/18 20:00 98.6 66 16 174/82 97 Nasal Cannula 2.0 07/22/18 19:34 68 07/22/18 19:11 Nasal Cannula 2.0 28 07/22/18 19:11 100 Nasal Cannula 2.0 28 07/22/18 16:00 97.5 69 18 161/82 100 Nasal Cannula 2.0 07/22/18 16:00 Nasal Cannula 2.0 07/22/18 15:40 69 07/22/18 12:00 Nasal Cannula 2.0 07/22/18 12:00 97.5 71 16 140/88 100 Nasal Cannula 2.0 07/22/18 11:57 74 07/22/18 11:48 69 14 100 Nasal Cannula 2.0 28 07/22/18 11:36 72 16 100 Nasal Cannula 2.0 28 Height (Feet): 5 Height (Inches): 6.00 Weight (Pounds): 154 General Appearance: no acute distress HEENT: mucous membranes moist Respiratory/Chest: rhonchi - bilaterally Cardiovascular: normal rate Abdomen: soft, non tender Extremities: no edema Neurologic/Psychiatric: alert, responsive Laboratory Tests Test 07/23/18 05:40 White Blood Count 6.8 K/UL (4.8-10.8) Red Blood Count 2.93 M/UL (4.20-5.40) L Hemoglobin 8.6 G/DL (12.0-16.0) L Hematocrit 28.8 % (37.0-47.0) L Mean Corpuscular Volume 98 FL (80-99) Mean Corpuscular Hemoglobin 29.4 PG (27.0-31.0) Mean Corpuscular Hemoglobin Concent 29.9 G/DL (32.0-36.0) L Red Cell Distribution Width 15.4 % (11.6-14.8) H Platelet Count 165 K/UL (150-450) Mean Platelet Volume 5.6 FL (6.5-10.1) L Neutrophils (%) (Auto) 76.1 % (45.0-75.0) H Lymphocytes (%) (Auto) 15.8 % (20.0-45.0) L Monocytes (%) (Auto) 6.3 % (1.0-10.0) Eosinophils (%) (Auto) 1.5 % (0.0-3.0) Basophils (%) (Auto) 0.4 % (0.0-2.0) Sodium Level 146 MMOL/L (136-145) H Potassium Level 4.1 MMOL/L (3.5-5.1) Chloride Level 110 MMOL/L (98-107) H Carbon Dioxide Level 32 MMOL/L (21-32) Anion Gap 4 mmol/L (5-15) L Blood Urea Nitrogen 20 mg/dL (7-18) H Creatinine 0.4 MG/DL (0.55-1.30) L Estimat Glomerular Filtration Rate mL/min (>60) Glucose Level 114 MG/DL (74-106) H Calcium Level 8.1 MG/DL (8.5-10.1) L Total Bilirubin 0.5 MG/DL (0.2-1.0) Aspartate Amino Transf (AST/SGOT) 34 U/L (15-37) Alanine Aminotransferase (ALT/SGPT) 16 U/L (12-78) Alkaline Phosphatase 119 U/L (46-116) H Total Protein 4.8 G/DL (6.4-8.2) L Albumin 1.9 G/DL (3.4-5.0) L Globulin 2.9 g/dL Albumin/Globulin Ratio 0.7 (1.0-2.7) L Current Medications Medications (Trade) Dose Ordered Sig/Sukhi Route PRN Reason Start Time Stop Time Status Last Admin Dose Admin Amiodarone HCl (Cordarone) 200 mg BID ORAL 07/20/18 09:00 08/19/18 08:59 07/23/18 09:23 Ascorbic Acid (Vitamin C) 500 mg DAILY ORAL 07/20/18 09:00 08/19/18 08:59 07/23/18 09:22 Aspirin (Ecotrin) 81 mg DAILY ORAL 07/18/18 09:00 08/17/18 08:59 07/23/18 09:22 Atenolol (Tenormin) 50 mg DAILY ORAL 07/18/18 09:00 08/17/18 08:59 07/23/18 09:22 Atorvastatin Calcium (Lipitor) 20 mg BEDTIME ORAL 07/17/18 21:00 08/16/18 20:59 07/22/18 20:18 Bisacodyl (Dulcolax) 5 mg DAILYPRN PRN ORAL Constipation 07/18/18 17:15 08/17/18 17:14 07/22/18 12:54 Docusate Sodium (Colace) 100 mg EVERY 12 HOURS ORAL 07/18/18 21:00 08/17/18 08:59 07/23/18 09:22 Fluconazole (Diflucan) 100 mg DAILY ORAL 07/20/18 11:00 07/27/18 10:59 07/23/18 09:22 Heparin Sodium (Porcine) (Heparin 5000 units/ml) 5,000 units EVERY 12 HOURS SUBQ 07/17/18 21:00 08/16/18 20:59 07/23/18 09:24 Latanoprost (Xalatan) 1 drop BEDTIME BOTH EYES 07/17/18 21:00 08/16/18 20:59 07/22/18 20:18 Losartan Potassium (Cozaar) 100 mg DAILY ORAL 07/18/18 09:00 08/17/18 08:59 07/23/18 09:23 Magnesium Hydroxide (Mom) 30 ml HSPRN PRN ORAL Constipation 07/18/18 16:15 08/17/18 16:14 07/23/18 05:46 Meropenem 1 gm/ Sodium Chloride 55 ml @ 110 mls/hr Q12HR IVPB 07/19/18 13:30 07/24/18 13:29 07/23/18 09:21 Multivitamins (Multivitamins) 1 tab DAILY ORAL 07/20/18 09:00 08/19/18 08:59 07/23/18 09:23 Tamsulosin HCl (Flomax) 0.4 mg BEDTIME ORAL 07/17/18 21:00 08/16/18 20:59 07/22/18 20:18 Vitamin D (Vitamin D) 5,000 intlu DAILY ORAL 07/18/18 09:00 08/17/18 08:59 07/23/18 09:22 Jd Turner MD Jul 23, 2018 10:31
--- NOTE | 2018-07-23 12:02 | NUR ---
NURSE NOTES: received pt in the bed, awake, alert, oriented, vital signs stable, no co pain, no SOB, skin warm and dry to touch, dressing dry and intact on sacral area, bed in low position, call light within reach.
--- NOTE | 2018-07-23 12:12 | General Progress Note ---
Assessment/Plan Problem List: (1) Respiratory distress ICD Codes: R06.03 - Acute respiratory distress SNOMED: 633864825 (2) Pneumonia ICD Codes: J18.9 - Pneumonia, unspecified organism SNOMED: 284146370 (3) SOB (shortness of breath) ICD Codes: R06.02 - Shortness of breath SNOMED: 582849899 (4) Sacral decubitus ulcer ICD Codes: L89.159 - Pressure ulcer of sacral region, unspecified stage SNOMED: 823394676 (5) Failure to thrive SNOMED: 96740135 Qualifiers: Qualified Codes: R62.7 - Adult failure to thrive Status: stable, progressing Assessment/Plan iv abx o2 resp rx monitor cxr wound care diuresis per cards repeat cxr dc planning tomorrow if stable Subjective ROS Limited/Unobtainable: No Constitutional: Reports: malaise, weakness HEENT: Reports: no symptoms Cardiovascular: Reports: no symptoms Respiratory: Reports: cough, shortness of breath, wheezing Genitourinary: Reports: no symptoms Neurologic/Psychiatric: Reports: no symptoms Endocrine: Reports: no symptoms Hematologic/Lymphatic: Reports: no symptoms Allergies: Coded Allergies: No Known Allergies (Unverified , 07/17/18) All Systems: reviewed and negative except above Subjective no events. up in bed. eating breakfast. decreased sob remains on iv abx. no chest pain . Objective Last 24 Hour Vital Signs Date Time Temp Pulse Resp B/P (MAP) Pulse Ox O2 Delivery O2 Flow Rate FiO2 07/23/18 09:23 139/88 07/23/18 09:22 67 139/88 07/23/18 08:00 Nasal Cannula 2.0 07/23/18 08:00 97.5 67 16 139/88 100 Nasal Cannula 2.0 07/23/18 08:00 78 07/23/18 06:50 Nasal Cannula 2.0 28 07/23/18 06:50 100 Nasal Cannula 2.0 28 07/23/18 04:00 98.3 73 20 156/86 100 Nasal Cannula 2.0 07/23/18 04:00 Nasal Cannula 2.0 07/23/18 03:36 67 07/23/18 00:00 98.2 79 16 136/76 99 Nasal Cannula 2.0 07/23/18 00:00 Nasal Cannula 2.0 07/22/18 23:52 73 07/22/18 20:00 Nasal Cannula 2.0 07/22/18 20:00 98.6 66 16 174/82 97 Nasal Cannula 2.0 07/22/18 19:34 68 07/22/18 19:11 Nasal Cannula 2.0 28 07/22/18 19:11 100 Nasal Cannula 2.0 28 07/22/18 16:00 97.5 69 18 161/82 100 Nasal Cannula 2.0 07/22/18 16:00 Nasal Cannula 2.0 07/22/18 15:40 69 Intake and Output 07/22/18 07/23/18 19:00 07:00 Intake Total 415 ml 55 ml Output Total 200 ml 400 ml Balance 215 ml -345 ml Intake Oral 360 ml IV Total 55 ml 55 ml Output Urine Total 200 ml 400 ml Laboratory Tests 07/23/18 05:40: White Blood Count 6.8, Red Blood Count 2.93L, Hemoglobin 8.6L, Hematocrit 28.8L , Mean Corpuscular Volume 98, Mean Corpuscular Hemoglobin 29.4, Mean Corpuscular Hemoglobin Concent 29.9L, Red Cell Distribution Width 15.4H, Platelet Count 165, Mean Platelet Volume 5.6L, Neutrophils (%) (Auto) 76.1H, Lymphocytes (%) (Auto) 15.8L, Monocytes (%) (Auto) 6.3, Eosinophils (%) (Auto) 1.5, Basophils (%) (Auto) 0.4, Sodium Level 146H, Potassium Level 4.1, Chloride Level 110H, Carbon Dioxide Level 32, Anion Gap 4L, Blood Urea Nitrogen 20H, Creatinine 0.4L, Estimat Glomerular Filtration Rate , Glucose Level 114H, Calcium Level 8.1L, Total Bilirubin 0.5, Aspartate Amino Transf (AST/SGOT) 34, Alanine Aminotransferase (ALT/SGPT) 16, Alkaline Phosphatase 119H, Total Protein 4.8L, Albumin 1.9L, Globulin 2.9, Albumin/Globulin Ratio 0.7L Height (Feet): 5 Height (Inches): 6.00 Weight (Pounds): 154 Objective General Appearance: WD/WN, alert Neck: supple Cardiovascular: normal peripheral pulses, normal rate, regular rhythm Respiratory/Chest: rhonchi - bilaterally Abdomen: normal bowel sounds, non tender, soft, no organomegaly Edema: no edema noted Arm (L), no edema noted Arm (R), no edema noted Leg (L), no edema noted Leg (R), no edema noted Pedal (L), no edema noted Pedal (R), no edema noted 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
[2018-07-23] MEDS: Bisacodyl EC 5mg tab ORAL PRN (12:22)
--- NOTE | 2018-07-23 15:00 | Surgery Progress Note ---
Surgery Progress Note Subjective Additional Comments doing well. no acute events. labs noted. stable. comfortable Objective Last 24 Hour Vital Signs Date Time Temp Pulse Resp B/P (MAP) Pulse Ox O2 Delivery O2 Flow Rate FiO2 07/23/18 12:00 97.7 69 20 173/78 94 Nasal Cannula 2.0 07/23/18 12:00 66 07/23/18 12:00 Nasal Cannula 2.0 07/23/18 09:23 139/88 07/23/18 09:22 67 139/88 07/23/18 08:00 Nasal Cannula 2.0 07/23/18 08:00 97.5 67 16 139/88 100 Nasal Cannula 2.0 07/23/18 08:00 78 07/23/18 06:50 Nasal Cannula 2.0 28 07/23/18 06:50 100 Nasal Cannula 2.0 28 07/23/18 04:00 98.3 73 20 156/86 100 Nasal Cannula 2.0 07/23/18 04:00 Nasal Cannula 2.0 07/23/18 03:36 67 07/23/18 00:00 98.2 79 16 136/76 99 Nasal Cannula 2.0 07/23/18 00:00 Nasal Cannula 2.0 07/22/18 23:52 73 07/22/18 20:00 Nasal Cannula 2.0 07/22/18 20:00 98.6 66 16 174/82 97 Nasal Cannula 2.0 07/22/18 19:34 68 07/22/18 19:11 Nasal Cannula 2.0 28 07/22/18 19:11 100 Nasal Cannula 2.0 28 07/22/18 16:00 97.5 69 18 161/82 100 Nasal Cannula 2.0 07/22/18 16:00 Nasal Cannula 2.0 07/22/18 15:40 69 I&O Intake and Output 07/22/18 07/23/18 19:00 07:00 Intake Total 415 ml 55 ml Output Total 200 ml 400 ml Balance 215 ml -345 ml Intake Oral 360 ml IV Total 55 ml 55 ml Output Urine Total 200 ml 400 ml Dressing: dry Wound: clean Drains: other Cardiovascular: RSR Respiratory: clear Abdomen: soft, present bowel sounds, non-distended Extremities: no cyanosis Laboratory Tests Test 07/23/18 05:40 White Blood Count 6.8 K/UL (4.8-10.8) Red Blood Count 2.93 M/UL (4.20-5.40) L Hemoglobin 8.6 G/DL (12.0-16.0) L Hematocrit 28.8 % (37.0-47.0) L Mean Corpuscular Volume 98 FL (80-99) Mean Corpuscular Hemoglobin 29.4 PG (27.0-31.0) Mean Corpuscular Hemoglobin Concent 29.9 G/DL (32.0-36.0) L Red Cell Distribution Width 15.4 % (11.6-14.8) H Platelet Count 165 K/UL (150-450) Mean Platelet Volume 5.6 FL (6.5-10.1) L Neutrophils (%) (Auto) 76.1 % (45.0-75.0) H Lymphocytes (%) (Auto) 15.8 % (20.0-45.0) L Monocytes (%) (Auto) 6.3 % (1.0-10.0) Eosinophils (%) (Auto) 1.5 % (0.0-3.0) Basophils (%) (Auto) 0.4 % (0.0-2.0) Sodium Level 146 MMOL/L (136-145) H Potassium Level 4.1 MMOL/L (3.5-5.1) Chloride Level 110 MMOL/L (98-107) H Carbon Dioxide Level 32 MMOL/L (21-32) Anion Gap 4 mmol/L (5-15) L Blood Urea Nitrogen 20 mg/dL (7-18) H Creatinine 0.4 MG/DL (0.55-1.30) L Estimat Glomerular Filtration Rate mL/min (>60) Glucose Level 114 MG/DL (74-106) H Calcium Level 8.1 MG/DL (8.5-10.1) L Total Bilirubin 0.5 MG/DL (0.2-1.0) Aspartate Amino Transf (AST/SGOT) 34 U/L (15-37) Alanine Aminotransferase (ALT/SGPT) 16 U/L (12-78) Alkaline Phosphatase 119 U/L (46-116) H Total Protein 4.8 G/DL (6.4-8.2) L Albumin 1.9 G/DL (3.4-5.0) L Globulin 2.9 g/dL Albumin/Globulin Ratio 0.7 (1.0-2.7) L Plan Problems: (1) Sacral decubitus ulcer Assessment & Plan: Pt presented on admission with DTPI sacrum extending down to R and L lower buttocks with (2) openings at R of sacral wound. Base of wound indurated, maroon in colour with red tinged borders . Both openings beefy red in colour with minimal serosanguineous exudate .No odor noted. Pt verbalized tenderness when sacral area minimally palpated. Non-blanchable erythema without induration noted periwound.(L)14.5cm x (W)11cm. Both heels are fluctuant with non-blanchable erythema. Pt verbalized tenderness when both heels are minimally palpated. Pt is alert and has been educated on wound prevention. Pt encouraged to frequently reposition side to side at least hourly. Tx.Plan: Apply Triad Paste to Sacrum/ buttocks .Cover Sacral area with Optifoam drsg .Change every 3 days and prn. Apply Cavilon Skin Barrier to both heels. Cover each heel with Optifoam drsg.Change every 7 days and prn. Encourage and assist with repositioning at least every 2hours or as tolerated. Off-load heels with Pillow. APM/ANA PAULA mattress. (2) Failure to thrive Assessment & Plan: Hypoalbuminemia Nutritional status poor will need improved nutrition for proper wound healing nutrition consult for goals diet as tolerated encourage oral intake. DAILY ESTIMATED NEEDS: Needs based on Wounds, 59kg adj 30-35 kcals/kg 9770-0779 total kcals 1.25-1.5 g protein/kg 74-89 g total protein Fluid per MD, on lasix NUTRITION DIAGNOSIS: Increased kcal and protein needs r/t wound healing as evidenced by pt w/ sacral open DTI and BL heels with non-blanchable erythema. CURRENT DIET: Cardiac/ CCHO MED PO DIET RECOMMENDATIONS: LOW NA DIET / CCHO MED (texture per FARM FACILITY MANAGER) ADDITIONAL RECOMMENDATIONS: 1) Wound care: add MVI x1 + Vit C 250mg daily + CHACORTA BID 2) Monitor BG w/ iss as needed (pt on solumedrol, BG 147) 3) High protein snack in b/w meals 4) Pt advanced age, rec FARM FACILITY MANAGER eval for appropriate texture and dx PNA 5) Monitor po intake, need for supplements 6) On lasix, monitor lytes daily 7) TXR pt to be with scale. Rob Payne Jul 23, 2018 15:00
[2018-07-23] MEDS ORDERED: Tubing IV Secondary IV ONE (16:28)
[2018-07-23] MEDS ORDERED: NS 275ml ONE (16:28)
--- NOTE | 2018-07-23 18:34 | NUR ---
NURSE NOTES: pr transferred to 4E by bed as ordered, condition stable, report given to JAIRO SCHULTZ
--- NOTE | 2018-07-23 19:42 | NUR ---
HAND-OFF: Report given to Rodo.
--- NOTE | 2018-07-23 20:00 | NUR ---
NURSE NOTES: Patient received in bed,asleep, calmly resting, easily arousable. no acute distress noted, noted with non-productive cough. Bed is locked in low position. Call light in reach, Will continue to monitor.
[2018-07-23] MEDS ORDERED: Fleet's Enema 133ml RECTAL SCH (21:00)
[2018-07-23] MEDS ORDERED: Latanoprost 0.005% Opth 2.5ml Soln BOTH EYES SCH (21:00)
[2018-07-23] MEDS ORDERED: Tamsulosin 0.4mg cap ORAL SCH (21:00)
[2018-07-23] MEDS ORDERED: Atorvastatin 20mg tab ORAL SCH (21:00)
--- NOTE | 2018-07-23 23:00 | NUR ---
NURSE NOTES: Patient had BM after fleets enema.
[2018-07-24] VITALS: BP 114/65
--- NOTE | 2018-07-24 01:00 | NUR ---
NURSE NOTES: Patient c/o painful cough preventing her from getting sleep. No PRN cough medication. Call placed to Dr. Caldwell.
[2018-07-24 04:00] VITALS: BP 158/84
--- NOTE | 2018-07-24 06:00 | NUR ---
NURSE NOTES: Patient had another BM. Sacral dressing changed.
--- NOTE | 2018-07-24 07:20 | NUR ---
HAND-OFF: Report given to Neena SCHULTZ.
--- NOTE | 2018-07-24 07:21 | General Progress Note ---
Assessment/Plan Problem List: (1) Respiratory distress ICD Codes: R06.03 - Acute respiratory distress SNOMED: 965106685 (2) Pneumonia ICD Codes: J18.9 - Pneumonia, unspecified organism SNOMED: 128901576 (3) SOB (shortness of breath) ICD Codes: R06.02 - Shortness of breath SNOMED: 676551797 (4) Sacral decubitus ulcer ICD Codes: L89.159 - Pressure ulcer of sacral region, unspecified stage SNOMED: 010502841 (5) Failure to thrive SNOMED: 99686347 Qualifiers: Qualified Codes: R62.7 - Adult failure to thrive Status: stable Assessment/Plan iv abx o2 resp rx monitor cxr wound care diuresis per cards repeat cxr noted consider CT dc planning Subjective ROS Limited/Unobtainable: No Constitutional: Reports: malaise, weakness HEENT: Reports: no symptoms Cardiovascular: Reports: no symptoms Respiratory: Reports: cough Gastrointestinal/Abdominal: Reports: no symptoms Genitourinary: Reports: no symptoms Neurologic/Psychiatric: Reports: no symptoms Endocrine: Reports: no symptoms Hematologic/Lymphatic: Reports: anemia Allergies: Coded Allergies: No Known Allergies (Unverified , 07/17/18) All Systems: reviewed and negative except above Subjective no events. w/o complaints. on o2. no sob. no wheezing. Objective Last 24 Hour Vital Signs Date Time Temp Pulse Resp B/P (MAP) Pulse Ox O2 Delivery O2 Flow Rate FiO2 07/24/18 04:00 97.7 67 19 158/84 97 Nasal Cannula 2.0 07/24/18 00:00 97.9 75 20 114/65 100 Nasal Cannula 2.0 07/23/18 21:34 Nasal Cannula 2.0 28 07/23/18 21:34 94 Nasal Cannula 2.0 28 07/23/18 21:00 Nasal Cannula 2.0 07/23/18 20:00 98.6 66 20 157/78 96 Nasal Cannula 2.0 07/23/18 16:00 97.7 67 16 148/75 100 Nasal Cannula 2.0 07/23/18 16:00 Nasal Cannula 2.0 07/23/18 16:00 68 07/23/18 12:00 97.7 69 20 173/78 94 Nasal Cannula 2.0 07/23/18 12:00 66 07/23/18 12:00 Nasal Cannula 2.0 07/23/18 09:23 139/88 07/23/18 09:22 67 139/88 07/23/18 08:00 Nasal Cannula 2.0 07/23/18 08:00 97.5 67 16 139/88 100 Nasal Cannula 2.0 07/23/18 08:00 78 Intake and Output 07/23/18 07/24/18 18:59 06:59 Intake Total 275 ml 55 ml Output Total 500 ml Balance -225 ml 55 ml Intake Oral 220 ml IV Total 55 ml 55 ml Output Urine Total 500 ml # Voids 1 # Bowel Movements 2 Laboratory Tests 07/24/18 05:25: Sodium Level [Pending], Potassium Level [Pending], Chloride Level [Pending], Carbon Dioxide Level [Pending], Blood Urea Nitrogen [Pending], Creatinine [ Pending], Estimat Glomerular Filtration Rate [Pending], Glucose Level [Pending] , Calcium Level [Pending], Total Bilirubin [Pending], Aspartate Amino Transf ( AST/SGOT) [Pending], Alanine Aminotransferase (ALT/SGPT) [Pending], Alkaline Phosphatase [Pending], Total Protein [Pending], Albumin [Pending], Globulin [ Pending] Height (Feet): 5 Height (Inches): 6.00 Weight (Pounds): 154 Objective General Appearance: WD/WN, alert Neck: supple Cardiovascular: normal peripheral pulses, normal rate, regular rhythm Respiratory/Chest: rhonchi - bilaterally Abdomen: normal bowel sounds, non tender, soft, no organomegaly Edema: no edema noted Arm (L), no edema noted Arm (R), no edema noted Leg (L), no edema noted Leg (R), no edema noted Pedal (L), no edema noted Pedal (R), no edema noted Generalized Neurologic: food operations manager II-XII grossly normal, no motor/sensory deficits, alert, responsive Lars Rebolledo MD Jul 24, 2018 07:21
[2018-07-24 07:34] LABS: ALANINE AMINOTRANSFERASE 17 U/L (12-78); ALBUMIN 2.1 G/DL (3.4-5.0); ALBUMIN/GLOBULIN RATIO 0.7 (1.0-2.7); ALKALINE PHOSPHATASE 133 U/L (46-116); ANION GAP 6 mmol/L (5-15); ASPARTATE AMINO TRANSFERASE 28 U/L (15-37); BILIRUBIN,TOTAL 0.5 MG/DL (0.2-1.0); BLOOD UREA NITROGEN 17 mg/dL (7-18); CALCIUM 8.5 MG/DL (8.5-10.1); CARBON DIOXIDE 32 MMOL/L (21-32); CHLORIDE 109 MMOL/L (98-107); CREATININE 0.6 MG/DL (0.55-1.30); POTASSIUM 3.6 MMOL/L (3.5-5.1); SODIUM 147 MMOL/L (136-145)
[2018-07-24 08:00] VITALS: BP 148/76
[2018-07-24] MEDS ORDERED: Isovue-370 150ml vial INJ PRN (08:30)
[2018-07-24] MEDS ORDERED: Guaifenesin/DM 10ml syrup ORAL PRN (08:30)
[2018-07-24] MEDS ORDERED: Vitamin D 1000 IU Tab ORAL SCH (09:00)
[2018-07-24] MEDS ORDERED: Bisacodyl EC 5mg tab ORAL PRN (09:00)
[2018-07-24] MEDS ORDERED: Losartan 50mg tab ORAL SCH (09:00)
[2018-07-24] MEDS ORDERED: Aspirin EC 81mg tab ORAL SCH (09:00)
[2018-07-24] MEDS ORDERED: Ascorbic Acid 500mg tab ORAL SCH (09:00)
[2018-07-24] MEDS ORDERED: Fluconazole 100mg tab ORAL SCH (09:00)
[2018-07-24] MEDS: Docusate 100mg cap ORAL SCH ×2 (09:02→20:38)
[2018-07-24] MEDS: Amiodarone 200mg tab ORAL SCH ×2 (09:03→17:12)
[2018-07-24] MEDS: Meropenem 1 GM in NS 55 ML IVPB SCH ×2 (09:04→20:38)
[2018-07-24] MEDS: Heparin 5000 units/ml inj SUBQ SCH ×2 (09:05→20:44)
--- NOTE | 2018-07-24 10:56 | Infectious Diseases Prog Note ---
"Assessment/Plan Assessment/Plan antibiotics : meropenem, fluconazole A 1. esbl e.coli UTI | fungal UTI 2. pneumonia 3. hypertension 4. atrial fibrillation 5. thoracic aortic aneurysm P 1. continue meropenem 1 more day 2. continue fluconazole 2 more days 3. will follow up cultures Subjective Constitutional: Denies: fever, chills Respiratory: Reports: dry cough; Denies: shortness of breath Gastrointestinal/Abdominal: Denies: nausea, vomiting, diarrhea Musculoskeletal: Denies: pain Allergies: Coded Allergies: No Known Allergies (Unverified , 07/17/18) Objective Vital Signs Last 24 Hour Vital Signs Date Time Temp Pulse Resp B/P (MAP) Pulse Ox O2 Delivery O2 Flow Rate FiO2 07/24/18 09:03 148/76 07/24/18 09:03 70 148/76 07/24/18 08:00 97.8 70 18 148/76 96 Nasal Cannula 2.0 07/24/18 07:50 99 Nasal Cannula 2.0 28 07/24/18 07:50 Nasal Cannula 2.0 28 07/24/18 04:00 97.7 67 19 158/84 97 Nasal Cannula 2.0 07/24/18 00:00 97.9 75 20 114/65 100 Nasal Cannula 2.0 07/23/18 21:34 Nasal Cannula 2.0 28 07/23/18 21:34 94 Nasal Cannula 2.0 28 07/23/18 21:00 Nasal Cannula 2.0 07/23/18 20:00 98.6 66 20 157/78 96 Nasal Cannula 2.0 07/23/18 16:00 97.7 67 16 148/75 100 Nasal Cannula 2.0 07/23/18 16:00 Nasal Cannula 2.0 07/23/18 16:00 68 07/23/18 12:00 97.7 69 20 173/78 94 Nasal Cannula 2.0 07/23/18 12:00 66 07/23/18 12:00 Nasal Cannula 2.0 Height (Feet): 5 Height (Inches): 6.00 Weight (Pounds): 154 Respiratory/Chest: lungs clear Cardiovascular: normal rate, regular rhythm, no gallop/murmur Abdomen: soft, non tender Extremities: other - + edema Laboratory Tests Test 07/24/18 05:25 Sodium Level 147 MMOL/L (136-145) H Potassium Level 3.6 MMOL/L (3.5-5.1) Chloride Level 109 MMOL/L (98-107) H Carbon Dioxide Level 32 MMOL/L (21-32) Anion Gap 6 mmol/L (5-15) Blood Urea Nitrogen 17 mg/dL (7-18) Creatinine 0.6 MG/DL (0.55-1.30) Estimat Glomerular Filtration Rate mL/min (>60) Glucose Level 104 MG/DL (74-106) Calcium Level 8.5 MG/DL (8.5-10.1) Total Bilirubin 0.5 MG/DL (0.2-1.0) Aspartate Amino Transf (AST/SGOT) 28 U/L (15-37) Alanine Aminotransferase (ALT/SGPT) 17 U/L (12-78) Alkaline Phosphatase 133 U/L (46-116) H Total Protein 5.3 G/DL (6.4-8.2) L Albumin 2.1 G/DL (3.4-5.0) L Globulin 3.2 g/dL Albumin/Globulin Ratio 0.7 (1.0-2.7) L Current Medications Medications (Trade) Dose Ordered Sig/Sukhi Route PRN Reason Start Time Stop Time Status Last Admin Dose Admin Amiodarone HCl (Cordarone) 200 mg BID ORAL 07/23/18 18:00 08/19/18 08:59 07/24/18 09:03 Ascorbic Acid (Vitamin C) 500 mg DAILY ORAL 07/24/18 09:00 08/19/18 08:59 07/24/18 09:03 Aspirin (Ecotrin) 81 mg DAILY ORAL 07/24/18 09:00 08/17/18 08:59 07/24/18 09:02 Atenolol (Tenormin) 50 mg DAILY ORAL 07/24/18 09:00 08/17/18 08:59 07/24/18 09:03 Atorvastatin Calcium (Lipitor) 20 mg BEDTIME ORAL 07/23/18 21:00 08/16/18 20:59 07/23/18 21:35 Bisacodyl (Dulcolax) 5 mg DAILYPRN PRN ORAL Constipation 07/24/18 09:00 08/17/18 08:59 Docusate Sodium (Colace) 100 mg EVERY 12 HOURS ORAL 07/23/18 21:00 08/17/18 08:59 07/24/18 09:02 Fluconazole (Diflucan) 100 mg DAILY ORAL 07/24/18 09:00 07/27/18 10:59 07/24/18 09:03 Guaifenesin/ Dextromethorphan (Robitussin DM Syrup) 10 ml Q4H PRN ORAL For Cough 07/24/18 08:30 08/23/18 08:29 07/24/18 09:02 Heparin Sodium (Porcine) (Heparin 5000 units/ml) 5,000 units EVERY 12 HOURS SUBQ 07/23/18 21:00 08/16/18 20:59 07/24/18 09:05 Iopamidol (Isovue-370 150ml) 150 ml NOW PRN INJ Radiology Procedure 07/24/18 08:30 07/26/18 08:21 Latanoprost (Xalatan) 1 drop BEDTIME BOTH EYES 07/23/18 21:00 08/16/18 20:59 07/23/18 21:35 Losartan Potassium (Cozaar) 100 mg DAILY ORAL 07/24/18 09:00 08/17/18 08:59 07/24/18 09:03 Magnesium Hydroxide (Mom) 30 ml HSPRN PRN ORAL Constipation 07/24/18 21:00 08/17/18 20:59 Meropenem 1 gm/ Sodium Chloride 55 ml @ 110 mls/hr Q12HR IVPB 07/23/18 21:00 07/25/18 20:59 07/24/18 09:04 Multivitamins (Multivitamins) 1 tab DAILY ORAL 07/24/18 09:00 08/19/18 08:59 07/24/18 09:02 Tamsulosin HCl (Flomax) 0.4 mg BEDTIME ORAL 07/23/18 21:00 08/16/18 20:59 07/23/18 21:35 Vitamin D (Vitamin D) 5,000 intlu DAILY ORAL 07/24/18 09:00 08/17/18 08:59 07/24/18 09:03 Kathryn Howell MD Jul 24, 2018 10:56"
[2018-07-24 12:00] VITALS: BP 143/78
[2018-07-24] MEDS ORDERED: AMIODARONE HCL200 MG ORAL (15:40)
[2018-07-24] MEDS ORDERED: ASCORBIC ACID500 MG ORAL (15:43)
[2018-07-24] MEDS ORDERED: BISACODYL5 MG ORAL (15:45)
[2018-07-24] MEDS ORDERED: COLACE100 MG ORAL (15:46)
[2018-07-24] MEDS ORDERED: ADULT ROBITUSS118 ML ORAL (15:51)
[2018-07-24] MEDS ORDERED: MILK OF MA400 MG/51 ORAL (15:52)
[2018-07-24] MEDS ORDERED: MULTIVITAMINS1 EAC2 ORAL (15:53)
[2018-07-24] MEDS ORDERED: FLUCONAZOLE100 MG ORAL (15:55)
[2018-07-24] MEDS ORDERED: MEROPENEM1 GM IV (15:55)
[2018-07-24 16:00] VITALS: BP 135/76
--- NOTE | 2018-07-24 16:45 | Surgery Progress Note ---
Surgery Progress Note Subjective Additional Comments no acute events. comfortable. family at bedside. she looks much better. responsive and following commands. Objective Last 24 Hour Vital Signs Date Time Temp Pulse Resp B/P (MAP) Pulse Ox O2 Delivery O2 Flow Rate FiO2 07/24/18 16:00 98.2 77 19 135/76 98 Nasal Cannula 2.0 07/24/18 12:00 98.0 75 19 143/78 97 Nasal Cannula 2.0 07/24/18 09:03 148/76 07/24/18 09:03 70 148/76 07/24/18 09:00 Nasal Cannula 2.0 07/24/18 08:00 97.8 70 18 148/76 96 Nasal Cannula 2.0 07/24/18 07:50 99 Nasal Cannula 2.0 28 07/24/18 07:50 Nasal Cannula 2.0 28 07/24/18 04:00 97.7 67 19 158/84 97 Nasal Cannula 2.0 07/24/18 00:00 97.9 75 20 114/65 100 Nasal Cannula 2.0 07/23/18 21:34 Nasal Cannula 2.0 28 07/23/18 21:34 94 Nasal Cannula 2.0 28 07/23/18 21:00 Nasal Cannula 2.0 07/23/18 20:00 98.6 66 20 157/78 96 Nasal Cannula 2.0 I&O Intake and Output 07/23/18 07/24/18 19:00 07:00 Intake Total 275 ml 55 ml Output Total 500 ml Balance -225 ml 55 ml Intake Oral 220 ml IV Total 55 ml 55 ml Output Urine Total 500 ml # Voids 1 # Bowel Movements 2 Dressing: dry Wound: clean Drains: none Cardiovascular: RSR Respiratory: clear Abdomen: soft, flat, non-tender, present bowel sounds, non-distended Extremities: no tenderness, no cyanosis Laboratory Tests Test 07/24/18 05:25 Sodium Level 147 MMOL/L (136-145) H Potassium Level 3.6 MMOL/L (3.5-5.1) Chloride Level 109 MMOL/L (98-107) H Carbon Dioxide Level 32 MMOL/L (21-32) Anion Gap 6 mmol/L (5-15) Blood Urea Nitrogen 17 mg/dL (7-18) Creatinine 0.6 MG/DL (0.55-1.30) Estimat Glomerular Filtration Rate mL/min (>60) Glucose Level 104 MG/DL (74-106) Calcium Level 8.5 MG/DL (8.5-10.1) Total Bilirubin 0.5 MG/DL (0.2-1.0) Aspartate Amino Transf (AST/SGOT) 28 U/L (15-37) Alanine Aminotransferase (ALT/SGPT) 17 U/L (12-78) Alkaline Phosphatase 133 U/L (46-116) H Total Protein 5.3 G/DL (6.4-8.2) L Albumin 2.1 G/DL (3.4-5.0) L Globulin 3.2 g/dL Albumin/Globulin Ratio 0.7 (1.0-2.7) L Plan Problems: (1) Sacral decubitus ulcer Assessment & Plan: Pt presented on admission with DTPI sacrum extending down to R and L lower buttocks with (2) openings at R of sacral wound. Base of wound indurated, maroon in colour with red tinged borders . Both openings beefy red in colour with minimal serosanguineous exudate .No odor noted. Pt verbalized tenderness when sacral area minimally palpated. Non-blanchable erythema without induration noted periwound.(L)14.5cm x (W)11cm. Both heels are fluctuant with non-blanchable erythema. Pt verbalized tenderness when both heels are minimally palpated. Pt is alert and has been educated on wound prevention. Pt encouraged to frequently reposition side to side at least hourly. Tx.Plan: Apply Triad Paste to Sacrum/ buttocks .Cover Sacral area with Optifoam drsg .Change every 3 days and prn. Apply Cavilon Skin Barrier to both heels. Cover each heel with Optifoam drsg.Change every 7 days and prn. Encourage and assist with repositioning at least every 2hours or as tolerated. Off-load heels with Pillow. APM/ANA PAULA mattress. (2) Failure to thrive Assessment & Plan: Hypoalbuminemia Nutritional status poor will need improved nutrition for proper wound healing nutrition consult for goals diet as tolerated encourage oral intake. DAILY ESTIMATED NEEDS: Needs based on Wounds, 59kg adj 30-35 kcals/kg 4191-3238 total kcals 1.25-1.5 g protein/kg 74-89 g total protein Fluid per MD, on lasix NUTRITION DIAGNOSIS: Increased kcal and protein needs r/t wound healing as evidenced by pt w/ sacral open DTI and BL heels with non-blanchable erythema. 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 Rob Payne Jul 24, 2018 16:45
--- NOTE | 2018-07-24 17:07 | NUR ---
*-* DISCHARGE PLANNED *-* PATIENT IS DISCHARGE TO: [facility] ROOM# 14-B SKILLED T:[phone] FOR NURSE TO NURSE REPORT [facility] HAS BEEN ARRANGED FOR MORNING SHOW HOST AT 1800 S/W NIKOLAS [id number]
--- NOTE | 2018-07-24 18:51 | NUR ---
NURSE NOTES: pt is being discharged to [facility] picked up by ambulance with stable condition. Per Russell,Rn keep the IV due to pt will be continued IV atb. Rodolfo (son in law) made aware of pt's discharge and agreed. All discharge report given to Russell and verbalized understanding. denies any pain. vss. Addendum: 07/24/18 at 1926 by JANNET MACHADO RN NURSE NOTES: When Ambulance was here to picker tender the pt, pt's bp was noted with 177/87 HR 67. Ambulance was unable to take the pt at this time. Called Dr. murillo for prn bp med. After bp subsides down, the night nurse will call the ambulance on will call.
--- NOTE | 2018-07-24 19:32 | NUR ---
HAND-OFF: Report given to ANTOINE Goldsmith.
--- NOTE | 2018-07-24 19:43 | NUR ---
NURSE NOTES: Received patient in bed, patients blood pressure is 177/80, transfer was placed on hold by , new orders will be carried out before transferring patient, call light is within reach, bed is in low position and locked, alarm is on. Will continue to monitor for safety and comfort.
[2018-07-24 20:00] VITALS: BP 179/90
[2018-07-24] MEDS: Atorvastatin 20mg tab ORAL SCH (20:37)
[2018-07-24] MEDS: Tamsulosin 0.4mg cap ORAL SCH (20:38)
[2018-07-24] MEDS: Latanoprost 0.005% Opth 2.5ml Soln BOTH EYES SCH (20:44)
[2018-07-24] MEDS ORDERED: Milk of Magnesia 30ml Ud ORAL PRN (21:00)
[2018-07-24] MEDS ORDERED: Meropenem 1 GM in NS 55 ML IVPB SCH (21:00)
--- NOTE | 2018-07-24 23:09 | NUR ---
NURSE NOTES: Notified Dr Caldwell via phone message about patients B/p trending up despite clonidine 0.1 mg given. B/p 175/76 HR 96, patient is asymptomatic.
--- NOTE | 2018-07-24 23:50 | NUR ---
NURSE NOTES: Per Dr Caldwell, no additional orders yet, patient is not to be transferred at this time, RN notified, [place], ambulance and patients son.
[2018-07-25 00:09] VITALS: BP 158/82
--- NOTE | 2018-07-25 01:15 | Progress Note ---
DATE: 07/24/2018 CARDIOLOGY PROGRESS NOTE SUBJECTIVE: The patient's discharge has been postponed. She continues to have electrolyte abnormalities. In addition, her blood pressure is quite labile. She remains on IV antimicrobials. OBJECTIVE: LUNGS: Coarse breath sounds. Scattered rhonchi. HEART: Irregularly irregular rhythm. ABDOMEN: Soft. EXTREMITIES: Trace edema. LABORATORY DATA: Sodium 147, potassium 3.6, BUN 17, and creatinine 0.6. Albumin 2.1. White count 6.8 and hemoglobin 8.6. IMPRESSION: Hypertensive heart disease with blood pressure lability. PLAN: 1. Additional free water replacement. 2. Recheck laboratory studies. 3. Advance antihypertensive regimen with amlodipine. 4. Reassess for discharge. Zoran Caldwell M.D. DR: DAVID JOB#: [id number] CC:
[2018-07-25 04:33] VITALS: BP 167/81
--- NOTE | 2018-07-25 05:09 | NUR ---
NURSE NOTES: Patient seems moving around and being preoccupied with her surroundings every time her blood pressure is being checked or rechecked.
[2018-07-25 07:16] LABS: BASOPHILS % (AUTO) 0.6 % (0.0-2.0); EOSINOPHILS % (AUTO) 2.6 % (0.0-3.0); HEMATOCRIT 28.2 % (37.0-47.0); HEMOGLOBIN 8.5 G/DL (12.0-16.0); LYMPHOCYTES % (AUTO) 21.3 % (20.0-45.0); MEAN CORPUSCULAR VOLUME 99 FL (80-99); MONOCYTES % (AUTO) 8.8 % (1.0-10.0); NEUTROPHILS % (AUTO) 66.8 % (45.0-75.0); PLATELET COUNT 180 K/UL (150-450); RED BLOOD COUNT 2.86 M/UL (4.20-5.40); RED CELL DISTRIBUTION WIDTH 15.7 % (11.6-14.8); WHITE BLOOD COUNT 4.9 K/UL (4.8-10.8)
[2018-07-25 07:21] LABS: ALANINE AMINOTRANSFERASE 17 U/L (12-78); ALBUMIN 1.9 G/DL (3.4-5.0); ALBUMIN/GLOBULIN RATIO 0.7 (1.0-2.7); ALKALINE PHOSPHATASE 112 U/L (46-116); ANION GAP 4 mmol/L (5-15); ASPARTATE AMINO TRANSFERASE 28 U/L (15-37); BILIRUBIN,TOTAL 0.4 MG/DL (0.2-1.0); BLOOD UREA NITROGEN 13 mg/dL (7-18); CARBON DIOXIDE 34 MMOL/L (21-32); CHLORIDE 107 MMOL/L (98-107); CREATININE 0.5 MG/DL (0.55-1.30); POTASSIUM 3.2 MMOL/L (3.5-5.1); SODIUM 144 MMOL/L (136-145)
[2018-07-25 08:00] VITALS: BP 135/73
--- NOTE | 2018-07-25 08:17 | NUR ---
NURSE NOTES: Patient is sleeping, no s/s of discomfort. Patient is on 2 liters oxygen via nasal cannula. Patient is on P200 mattress. Side rails are up X2. Bed is locked and in lowest position. Will continue to monitor.
--- NOTE | 2018-07-25 08:32 | General Progress Note ---
Assessment/Plan Problem List: (1) Respiratory distress ICD Codes: R06.03 - Acute respiratory distress SNOMED: 522910153 (2) Pneumonia ICD Codes: J18.9 - Pneumonia, unspecified organism SNOMED: 702548870 (3) SOB (shortness of breath) ICD Codes: R06.02 - Shortness of breath SNOMED: 534297967 (4) Sacral decubitus ulcer ICD Codes: L89.159 - Pressure ulcer of sacral region, unspecified stage SNOMED: 705493383 (5) Failure to thrive SNOMED: 73277783 Qualifiers: Qualified Codes: R62.7 - Adult failure to thrive Status: stable, progressing Assessment/Plan iv abx o2 resp rx norvasc advanced replace k dc planning later today if bp stable Subjective ROS Limited/Unobtainable: No Constitutional: Reports: malaise, weakness HEENT: Reports: no symptoms Cardiovascular: Reports: no symptoms Respiratory: Reports: cough Gastrointestinal/Abdominal: Reports: no symptoms Genitourinary: Reports: no symptoms Neurologic/Psychiatric: Reports: no symptoms Endocrine: Reports: no symptoms Hematologic/Lymphatic: Reports: anemia Allergies: Coded Allergies: No Known Allergies (Unverified , 07/17/18) All Systems: reviewed and negative except above Subjective transportation would not take pt due to high bp. additional bp meds given last night. BP remains elevated. low k. denies REAVES/cp/sob Objective Last 24 Hour Vital Signs Date Time Temp Pulse Resp B/P (MAP) Pulse Ox O2 Delivery O2 Flow Rate FiO2 07/25/18 05:30 178/89 07/25/18 04:33 97.7 88 20 167/81 Room Air 88 07/25/18 00:55 89 153/78 07/25/18 00:09 97.7 61 18 158/82 Room Air 07/24/18 21:46 Nasal Cannula 2.0 07/24/18 20:21 179/90 07/24/18 20:04 99 Nasal Cannula 2.0 28 07/24/18 20:04 Nasal Cannula 2.0 28 07/24/18 20:00 98.6 67 20 179/90 97 Nasal Cannula 2.0 07/24/18 16:00 98.2 77 19 135/76 98 Nasal Cannula 2.0 07/24/18 12:00 98.0 75 19 143/78 97 Nasal Cannula 2.0 07/24/18 09:03 148/76 07/24/18 09:03 70 148/76 07/24/18 09:00 Nasal Cannula 2.0 Intake and Output 07/24/18 07/25/18 19:00 07:00 Intake Total 480 ml 300 ml Output Total 700 ml Balance -220 ml 300 ml Intake Oral 480 ml IV Total 300 ml Output Urine Total 700 ml # Voids 2 # Bowel Movements 1 Laboratory Tests 07/25/18 06:20: White Blood Count 4.9, Red Blood Count 2.86L, Hemoglobin 8.5L, Hematocrit 28.2L , Mean Corpuscular Volume 99, Mean Corpuscular Hemoglobin 29.9, Mean Corpuscular Hemoglobin Concent 30.3L, Red Cell Distribution Width 15.7H, Platelet Count 180, Mean Platelet Volume 6.3L, Neutrophils (%) (Auto) 66.8, Lymphocytes (%) (Auto) 21.3, Monocytes (%) (Auto) 8.8, Eosinophils (%) (Auto) 2.6, Basophils (%) (Auto) 0.6, Sodium Level 144, Potassium Level 3.2L, Chloride Level 107, Carbon Dioxide Level 34H, Anion Gap 4L, Blood Urea Nitrogen 13, Creatinine 0.5L, Estimat Glomerular Filtration Rate , Glucose Level 117H, Calcium Level 8.0L, Magnesium Level 1.8, Total Bilirubin 0.4, Aspartate Amino Transf (AST/SGOT) 28, Alanine Aminotransferase (ALT/SGPT) 17, Alkaline Phosphatase 112, Total Protein 4.6L, Albumin 1.9L, Globulin 2.7, Albumin/ Globulin Ratio 0.7L Height (Feet): 5 Height (Inches): 6.00 Weight (Pounds): 154 Objective General Appearance: WD/WN, alert Neck: supple Cardiovascular: normal peripheral pulses, normal rate, regular rhythm Respiratory/Chest: rhonchi - bilaterally Abdomen: normal bowel sounds, non tender, soft, no organomegaly Edema: no edema noted Arm (L), no edema noted Arm (R), no edema noted Leg (L), no edema noted Leg (R), no edema noted Pedal (L), no edema noted Pedal (R), no edema noted 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 MD Jul 25, 2018 08:32
[2018-07-25] MEDS ORDERED: Meropenem 1 GM in NS 55 ML IVPB SCH (09:00)
[2018-07-25] MEDS ORDERED: Milk of Magnesia 30ml Ud ORAL PRN (09:30)
[2018-07-25] MEDS ORDERED: Guaifenesin/DM 10ml syrup ORAL PRN (09:30)
[2018-07-25] MEDS ORDERED: Bisacodyl EC 5mg tab ORAL PRN (09:30)
[2018-07-25] MEDS: Heparin 5000 units/ml inj SUBQ SCH ×2 (09:39→20:34)
[2018-07-25] MEDS: Fluconazole 100mg tab ORAL SCH (09:42)
[2018-07-25] MEDS: Ascorbic Acid 500mg tab ORAL SCH (09:42)
[2018-07-25] MEDS: Vitamin D 1000 IU Tab ORAL SCH (09:42)
[2018-07-25] MEDS: Docusate 100mg cap ORAL SCH ×2 (09:43→20:32)
[2018-07-25] MEDS: Aspirin EC 81mg tab ORAL SCH (09:43)
[2018-07-25] MEDS: Amiodarone 200mg tab ORAL SCH ×2 (09:47→17:52)
[2018-07-25] MEDS: Losartan 50mg tab ORAL SCH (09:47)
--- NOTE | 2018-07-25 10:23 | Infectious Diseases Prog Note ---
"Assessment/Plan Assessment/Plan antibiotics : meropenem, fluconazole A 1. esbl e.coli UTI | fungal UTI 2. pneumonia 3. hypertension 4. atrial fibrillation 5. thoracic aortic aneurysm P 1. d/c meropenem 2. continue fluconazole 1 more day 3. will follow up cultures Subjective Constitutional: Denies: fever, chills Respiratory: Reports: productive cough - decreased; Denies: shortness of breath Gastrointestinal/Abdominal: Denies: nausea, vomiting, diarrhea Musculoskeletal: Denies: pain Allergies: Coded Allergies: No Known Allergies (Unverified , 07/17/18) Objective Vital Signs Last 24 Hour Vital Signs Date Time Temp Pulse Resp B/P (MAP) Pulse Ox O2 Delivery O2 Flow Rate FiO2 07/25/18 09:47 152/80 07/25/18 09:46 57 152/80 07/25/18 09:00 57 152/80 07/25/18 08:15 Nasal Cannula 2.0 28 07/25/18 08:15 97 Nasal Cannula 2.0 28 07/25/18 05:30 178/89 07/25/18 04:33 97.7 88 20 167/81 Room Air 88 07/25/18 00:55 89 153/78 07/25/18 00:09 97.7 61 18 158/82 Room Air 07/24/18 21:46 Nasal Cannula 2.0 07/24/18 20:21 179/90 07/24/18 20:04 99 Nasal Cannula 2.0 28 07/24/18 20:04 Nasal Cannula 2.0 28 07/24/18 20:00 98.6 67 20 179/90 97 Nasal Cannula 2.0 07/24/18 16:00 98.2 77 19 135/76 98 Nasal Cannula 2.0 07/24/18 12:00 98.0 75 19 143/78 97 Nasal Cannula 2.0 Height (Feet): 5 Height (Inches): 6.00 Weight (Pounds): 154 Respiratory/Chest: lungs clear Cardiovascular: normal rate, regular rhythm, no gallop/murmur Abdomen: soft, non tender Extremities: other - + edema Laboratory Tests Test 07/25/18 06:20 White Blood Count 4.9 K/UL (4.8-10.8) Red Blood Count 2.86 M/UL (4.20-5.40) L Hemoglobin 8.5 G/DL (12.0-16.0) L Hematocrit 28.2 % (37.0-47.0) L Mean Corpuscular Volume 99 FL (80-99) Mean Corpuscular Hemoglobin 29.9 PG (27.0-31.0) Mean Corpuscular Hemoglobin Concent 30.3 G/DL (32.0-36.0) L Red Cell Distribution Width 15.7 % (11.6-14.8) H Platelet Count 180 K/UL (150-450) Mean Platelet Volume 6.3 FL (6.5-10.1) L Neutrophils (%) (Auto) 66.8 % (45.0-75.0) Lymphocytes (%) (Auto) 21.3 % (20.0-45.0) Monocytes (%) (Auto) 8.8 % (1.0-10.0) Eosinophils (%) (Auto) 2.6 % (0.0-3.0) Basophils (%) (Auto) 0.6 % (0.0-2.0) Sodium Level 144 MMOL/L (136-145) Potassium Level 3.2 MMOL/L (3.5-5.1) L Chloride Level 107 MMOL/L (98-107) Carbon Dioxide Level 34 MMOL/L (21-32) H Anion Gap 4 mmol/L (5-15) L Blood Urea Nitrogen 13 mg/dL (7-18) Creatinine 0.5 MG/DL (0.55-1.30) L Estimat Glomerular Filtration Rate mL/min (>60) Glucose Level 117 MG/DL (74-106) H Calcium Level 8.0 MG/DL (8.5-10.1) L Magnesium Level 1.8 MG/DL (1.8-2.4) Total Bilirubin 0.4 MG/DL (0.2-1.0) Aspartate Amino Transf (AST/SGOT) 28 U/L (15-37) Alanine Aminotransferase (ALT/SGPT) 17 U/L (12-78) Alkaline Phosphatase 112 U/L (46-116) Total Protein 4.6 G/DL (6.4-8.2) L Albumin 1.9 G/DL (3.4-5.0) L Globulin 2.7 g/dL Albumin/Globulin Ratio 0.7 (1.0-2.7) L Current Medications Medications (Trade) Dose Ordered Sig/Sukhi Route PRN Reason Start Time Stop Time Status Last Admin Dose Admin Amiodarone HCl (Cordarone) 200 mg BID ORAL 07/25/18 09:00 08/24/18 08:59 07/25/18 09:47 Amlodipine Besylate (Norvasc) 5 mg BID ORAL 07/25/18 09:00 08/24/18 08:59 07/25/18 09:46 Ascorbic Acid (Vitamin C) 500 mg DAILY ORAL 07/25/18 09:00 08/24/18 08:59 07/25/18 09:42 Aspirin (Ecotrin) 81 mg DAILY ORAL 07/25/18 09:00 08/24/18 08:59 07/25/18 09:43 Atenolol (Tenormin) 50 mg DAILY ORAL 07/25/18 09:00 08/24/18 08:59 Atorvastatin Calcium (Lipitor) 20 mg BEDTIME ORAL 07/24/18 21:00 08/23/18 20:59 07/24/18 20:37 Bisacodyl (Dulcolax) 5 mg DAILYPRN PRN ORAL Constipation 07/25/18 09:30 08/24/18 09:29 Clonidine HCl (Catapres Tab) 0.1 mg Q4H PRN ORAL For High Blood Pressure 07/24/18 19:30 08/23/18 19:29 07/25/18 05:30 Dextrose 1,000 ml @ 100 mls/hr Q10H IV 07/25/18 00:45 07/26/18 00:45 07/25/18 00:55 Docusate Sodium (Colace) 100 mg EVERY 12 HOURS ORAL 07/24/18 21:00 08/23/18 20:59 07/25/18 09:43 Fluconazole (Diflucan) 100 mg DAILY ORAL 07/25/18 09:00 07/26/18 12:00 07/25/18 09:42 Guaifenesin/ Dextromethorphan (Robitussin DM Syrup) 10 ml Q4H PRN ORAL For Cough 07/25/18 09:30 08/24/18 09:29 Heparin Sodium (Porcine) (Heparin 5000 units/ml) 5,000 units EVERY 12 HOURS SUBQ 07/24/18 21:00 08/23/18 20:59 07/25/18 09:39 Latanoprost (Xalatan) 1 drop BEDTIME BOTH EYES 07/24/18 21:00 08/23/18 20:59 07/24/18 20:44 Losartan Potassium (Cozaar) 100 mg DAILY ORAL 07/25/18 09:00 08/24/18 08:59 07/25/18 09:47 Magnesium Hydroxide (Mom) 30 ml HSPRN PRN ORAL Constipation 07/25/18 09:30 08/24/18 09:29 Meropenem 1 gm/ Sodium Chloride 55 ml @ 110 mls/hr Q12HR IVPB 07/25/18 09:00 07/25/18 23:59 07/25/18 09:26 Multivitamins (Multivitamins) 1 tab DAILY ORAL 07/25/18 09:00 08/24/18 08:59 07/25/18 09:42 Tamsulosin HCl (Flomax) 0.4 mg BEDTIME ORAL 07/24/18 21:00 08/23/18 20:59 07/24/18 20:38 Vitamin D (Vitamin D) 5,000 intlu DAILY ORAL 07/25/18 09:00 08/24/18 08:59 07/25/18 09:42 Kathryn Howell MD Jul 25, 2018 10:23"
[2018-07-25 12:00] VITALS: BP 149/65
--- NOTE | 2018-07-25 13:10 | Surgery Progress Note ---
Surgery Progress Note Subjective Symptoms: improved, pain absent, tolerating diet, passing flatus, BM Objective Last 24 Hour Vital Signs Date Time Temp Pulse Resp B/P (MAP) Pulse Ox O2 Delivery O2 Flow Rate FiO2 07/25/18 12:00 97.3 57 149/65 Nasal Cannula 2.0 18 07/25/18 09:47 152/80 07/25/18 09:46 57 152/80 07/25/18 09:00 57 152/80 07/25/18 08:30 Nasal Cannula 2.0 07/25/18 08:15 Nasal Cannula 2.0 28 07/25/18 08:15 97 Nasal Cannula 2.0 28 07/25/18 08:00 96.8 59 135/73 Nasal Cannula 2.0 16 07/25/18 05:30 178/89 07/25/18 04:33 97.7 88 20 167/81 Room Air 88 07/25/18 00:55 89 153/78 07/25/18 00:09 97.7 61 18 158/82 Room Air 07/24/18 21:46 Nasal Cannula 2.0 07/24/18 20:21 179/90 07/24/18 20:04 99 Nasal Cannula 2.0 28 07/24/18 20:04 Nasal Cannula 2.0 28 07/24/18 20:00 98.6 67 20 179/90 97 Nasal Cannula 2.0 07/24/18 16:00 98.2 77 19 135/76 98 Nasal Cannula 2.0 I&O Intake and Output 07/24/18 07/25/18 18:59 06:59 Intake Total 480 ml 300 ml Output Total 700 ml Balance -220 ml 300 ml Intake Oral 480 ml IV Total 300 ml Output Urine Total 700 ml # Voids 2 # Bowel Movements 1 Dressing: dry Wound: clean Cardiovascular: RSR Respiratory: clear Abdomen: soft, flat, non-tender, non-distended Extremities: no tenderness, no cyanosis Laboratory Tests Test 07/25/18 06:20 White Blood Count 4.9 K/UL (4.8-10.8) Red Blood Count 2.86 M/UL (4.20-5.40) L Hemoglobin 8.5 G/DL (12.0-16.0) L Hematocrit 28.2 % (37.0-47.0) L Mean Corpuscular Volume 99 FL (80-99) Mean Corpuscular Hemoglobin 29.9 PG (27.0-31.0) Mean Corpuscular Hemoglobin Concent 30.3 G/DL (32.0-36.0) L Red Cell Distribution Width 15.7 % (11.6-14.8) H Platelet Count 180 K/UL (150-450) Mean Platelet Volume 6.3 FL (6.5-10.1) L Neutrophils (%) (Auto) 66.8 % (45.0-75.0) Lymphocytes (%) (Auto) 21.3 % (20.0-45.0) Monocytes (%) (Auto) 8.8 % (1.0-10.0) Eosinophils (%) (Auto) 2.6 % (0.0-3.0) Basophils (%) (Auto) 0.6 % (0.0-2.0) Sodium Level 144 MMOL/L (136-145) Potassium Level 3.2 MMOL/L (3.5-5.1) L Chloride Level 107 MMOL/L (98-107) Carbon Dioxide Level 34 MMOL/L (21-32) H Anion Gap 4 mmol/L (5-15) L Blood Urea Nitrogen 13 mg/dL (7-18) Creatinine 0.5 MG/DL (0.55-1.30) L Estimat Glomerular Filtration Rate mL/min (>60) Glucose Level 117 MG/DL (74-106) H Calcium Level 8.0 MG/DL (8.5-10.1) L Magnesium Level 1.8 MG/DL (1.8-2.4) Total Bilirubin 0.4 MG/DL (0.2-1.0) Aspartate Amino Transf (AST/SGOT) 28 U/L (15-37) Alanine Aminotransferase (ALT/SGPT) 17 U/L (12-78) Alkaline Phosphatase 112 U/L (46-116) Total Protein 4.6 G/DL (6.4-8.2) L Albumin 1.9 G/DL (3.4-5.0) L Globulin 2.7 g/dL Albumin/Globulin Ratio 0.7 (1.0-2.7) L Plan Problems: (1) Sacral decubitus ulcer Assessment & Plan: Pt presented on admission with DTPI sacrum extending down to R and L lower buttocks with (2) openings at R of sacral wound. Base of wound indurated, maroon in colour with red tinged borders . Both openings beefy red in colour with minimal serosanguineous exudate .No odor noted. Pt verbalized tenderness when sacral area minimally palpated. Non-blanchable erythema without induration noted periwound.(L)14.5cm x (W)11cm. Both heels are fluctuant with non-blanchable erythema. Pt verbalized tenderness when both heels are minimally palpated. Pt is alert and has been educated on wound prevention. Pt encouraged to frequently reposition side to side at least hourly. Tx.Plan: Apply Triad Paste to Sacrum/ buttocks .Cover Sacral area with Optifoam drsg .Change every 3 days and prn. Apply Cavilon Skin Barrier to both heels. Cover each heel with Optifoam drsg.Change every 7 days and prn. Encourage and assist with repositioning at least every 2hours or as tolerated. Off-load heels with Pillow. APM/ANA PAULA mattress. (2) Failure to thrive Assessment & Plan: Hypoalbuminemia Nutritional status poor will need improved nutrition for proper wound healing nutrition consult for goals diet as tolerated encourage oral intake. DAILY ESTIMATED NEEDS: Needs based on Wounds, 59kg adj 30-35 kcals/kg 7968-5421 total kcals 1.25-1.5 g protein/kg 74-89 g total protein Fluid per MD, on lasix NUTRITION DIAGNOSIS: Increased kcal and protein needs r/t wound healing as evidenced by pt w/ sacral open DTI and BL heels with non-blanchable erythema. 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 Rob Payne Jul 25, 2018 13:10
--- NOTE | 2018-07-25 13:45 | NUR ---
RD ASSESSMENT & RECOMMENDATIONS SEE CARE ACTIVITY FOR COMPLETE ASSESSMENT DAILY ESTIMATED NEEDS: Needs based on Wounds, 59kg adj 30-35 kcals/kg 8223-8642 total kcals 1.25-1.5 g protein/kg 74-89 g total protein 20-30ml/kcal mL/kg 8171-9602 total fluid mLs NUTRITION DIAGNOSIS: Increased kcal and protein needs r/t wound healing as evidenced by pt w/ sacral open DTI and BL heels with non-blanchable erythema. PO DIET RECOMMENDATIONS: LOW NA DIET / CCHO MED (texture per [employer]) ADDITIONAL RECOMMENDATIONS: 1) Wound care: add MVI x1 + Vit C 250mg daily + CHACORTA BID 2) Monitor BG w/ iss as needed (pt previously on solumedrol) 3) High protein snack in b/w meals + Glucerna 1 tetra diego BID 4) Pt advanced age, rec [employer] eval for appropriate texture and dx PNA 5) Monitor po intake, need for supplements-> variable 6) TXR pt to bed with scale .
--- NOTE | 2018-07-25 14:29 | NUR ---
NURSE NOTES:WOUND CARE FOLLOW-UP NOTES:Pt presents with scattered petechiae both upper ext. DTPI sacrum resolving (L)7.5cm x (W)7.5cm. Base of wound reabsorbed -induration resolved. Non-blanchable erythema persists but pt denied tenderness when base of wound minimally palpated. Incontinence associated noted to both groin, Cleft of buttocks and medial aspects of both thighs. Erythema with slight elevation in skin temp in groin areas but otherwise skin is intact. Both lower ext are edematous. Both heels are boggy with non-blanchable erythema. Pt denied tenderness when minimally palpated. Tx.Plan : Continue current Tx orders and wound interventions as implemented.
[2018-07-25 16:00] VITALS: BP 131/70
--- NOTE | 2018-07-25 19:29 | NUR ---
HAND-OFF: Report given to ANTOINE Hendrickson.
--- NOTE | 2018-07-25 19:35 | NUR ---
NURSE NOTES: patient received. patient in no acute distress at this time. patient complains of no pain at this time. patient resting at thsi time. bed in lowest position and locked. call light within reach. bed alarm on. patient IV intact and asymptomatic. will continue to monitor.
[2018-07-25 20:00] VITALS: BP 129/65
[2018-07-25] MEDS: Tamsulosin 0.4mg cap ORAL SCH (20:32)
[2018-07-25] MEDS: Atorvastatin 20mg tab ORAL SCH (20:32)
[2018-07-25] MEDS: Latanoprost 0.005% Opth 2.5ml Soln BOTH EYES SCH (20:34)
[2018-07-26] VITALS: BP 137/71
[2018-07-26 04:00] VITALS: BP 108/67
--- NOTE | 2018-07-26 07:21 | NUR ---
HAND-OFF: Report given to brittney serna.
--- NOTE | 2018-07-26 07:43 | NUR ---
NURSE NOTES: Pt currently sleeping. Will require to be encouraged to be repositioned q 2 hours for preventive e measures. Able to verbalize some known needs, language barrier. Call light is in reach . Current plan of care will be followed
--- NOTE | 2018-07-26 07:58 | General Progress Note ---
Assessment/Plan Problem List: (1) Respiratory distress ICD Codes: R06.03 - Acute respiratory distress SNOMED: 954346430 (2) Pneumonia ICD Codes: J18.9 - Pneumonia, unspecified organism SNOMED: 815900620 (3) SOB (shortness of breath) ICD Codes: R06.02 - Shortness of breath SNOMED: 765035263 (4) Sacral decubitus ulcer ICD Codes: L89.159 - Pressure ulcer of sacral region, unspecified stage SNOMED: 928271143 (5) Failure to thrive SNOMED: 59285887 Qualifiers: Qualified Codes: R62.7 - Adult failure to thrive Status: stable, progressing Assessment/Plan iv abx o2 resp rx norvasc advanced replace k dc planning Subjective ROS Limited/Unobtainable: No Constitutional: Reports: weakness HEENT: Reports: no symptoms Cardiovascular: Reports: no symptoms Respiratory: Reports: cough Gastrointestinal/Abdominal: Reports: no symptoms Genitourinary: Reports: no symptoms Neurologic/Psychiatric: Reports: no symptoms Endocrine: Reports: no symptoms Hematologic/Lymphatic: Reports: anemia Allergies: Coded Allergies: No Known Allergies (Unverified , 07/17/18) All Systems: reviewed and negative except above Subjective no events. no new complaints. mild cough but no sob. BP better controlled. K replaced yesterday Objective Last 24 Hour Vital Signs Date Time Temp Pulse Resp B/P (MAP) Pulse Ox O2 Delivery O2 Flow Rate FiO2 07/26/18 04:00 97.7 68 20 108/67 97 Nasal Cannula 07/26/18 00:00 98.0 71 18 137/71 100 Nasal Cannula 07/25/18 21:00 Nasal Cannula 2.0 07/25/18 20:28 99 Nasal Cannula 2.0 28 07/25/18 20:28 Nasal Cannula 2.0 28 07/25/18 20:00 98.3 67 20 129/65 99 Nasal Cannula 2.0 07/25/18 17:55 63 131/70 07/25/18 16:00 97.6 63 18 131/70 99 Nasal Cannula 2.0 07/25/18 12:00 97.3 57 18 149/65 95 Nasal Cannula 2.0 07/25/18 09:47 152/80 07/25/18 09:46 57 152/80 07/25/18 09:00 57 152/80 07/25/18 08:30 Nasal Cannula 2.0 07/25/18 08:15 Nasal Cannula 2.0 28 07/25/18 08:15 97 Nasal Cannula 2.0 28 07/25/18 08:00 96.8 59 16 135/73 96 Nasal Cannula 2.0 Intake and Output 07/25/18 07/26/18 19:00 07:00 Intake Total 880 ml 200 ml Output Total 900 ml Balance -20 ml 200 ml Intake Oral 880 ml 200 ml Output Urine Total 900 ml # Voids 1 Height (Feet): 5 Height (Inches): 6.00 Weight (Pounds): 154 Objective General Appearance: WD/WN, alert Neck: supple Cardiovascular: normal peripheral pulses, normal rate, regular rhythm Respiratory/Chest: rhonchi - bilaterally Abdomen: normal bowel sounds, non tender, soft, no organomegaly Edema: no edema noted Arm (L), no edema noted Arm (R), no edema noted Leg (L), no edema noted Leg (R), no edema noted Pedal (L), no edema noted Pedal (R), no edema noted 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
[2018-07-26] MEDS: Vitamin D 1000 IU Tab ORAL SCH (09:00)
[2018-07-26] MEDS: Heparin 5000 units/ml inj SUBQ SCH ×2 (09:00→09:35)
[2018-07-26 09:03] LABS: ALANINE AMINOTRANSFERASE 19 U/L (12-78); ALBUMIN/GLOBULIN RATIO 0.6 (1.0-2.7); ALKALINE PHOSPHATASE 129 U/L (46-116); ANION GAP 5 mmol/L (5-15); ASPARTATE AMINO TRANSFERASE 33 U/L (15-37); BILIRUBIN,TOTAL 0.4 MG/DL (0.2-1.0); BLOOD UREA NITROGEN 9 mg/dL (7-18); CALCIUM 8.4 MG/DL (8.5-10.1); CARBON DIOXIDE 30 MMOL/L (21-32); CHLORIDE 104 MMOL/L (98-107); CREATININE 0.5 MG/DL (0.55-1.30); POTASSIUM 3.4 MMOL/L (3.5-5.1); SODIUM 139 MMOL/L (136-145)
[2018-07-26] MEDS: Aspirin EC 81mg tab ORAL SCH (09:29)
[2018-07-26] MEDS: Docusate 100mg cap ORAL SCH (09:31)
[2018-07-26] MEDS: Amiodarone 200mg tab ORAL SCH (09:31)
[2018-07-26] MEDS: Fluconazole 100mg tab ORAL SCH (09:31)
[2018-07-26] MEDS: Ascorbic Acid 500mg tab ORAL SCH (09:31)
[2018-07-26 09:34] VITALS: BP 148/65
[2018-07-26] MEDS: Losartan 50mg tab ORAL SCH (09:34)
--- NOTE | 2018-07-26 09:38 | NUR ---
DISCHARGE PLANNED PATIENT WILL DISCHARGE TO [id number] *SKILLED T: [phone] FOR NURSE TO NURSE REPORT [facility] HAS BEEN ARRANGED FOR [address] [employer] EC[employer]IST SPOKE WITH SON, LINA, WHO IS IN AGREEMENT WITH DISCHARGE
--- NOTE | 2018-07-26 09:46 | NUR ---
NURSE NOTES: Pt noted with multiple discolorations to bilateral arms platelet 180 heparin held
--- NOTE | 2018-07-26 10:36 | Infectious Diseases Prog Note ---
"Assessment/Plan Assessment/Plan antibiotics : fluconazole A 1. esbl e.coli UTI | fungal UTI s/p rx 2. pneumonia 3. hypertension 4. atrial fibrillation 5. thoracic aortic aneurysm P 1. d/c fluconazole 2. observe off antibiotics Subjective Constitutional: Denies: fever, chills Respiratory: Denies: shortness of breath, dry cough Gastrointestinal/Abdominal: Denies: nausea, vomiting, diarrhea Musculoskeletal: Denies: pain Allergies: Coded Allergies: No Known Allergies (Unverified , 07/17/18) Objective Vital Signs Last 24 Hour Vital Signs Date Time Temp Pulse Resp B/P (MAP) Pulse Ox O2 Delivery O2 Flow Rate FiO2 07/26/18 09:34 148/65 07/26/18 09:30 70 148/65 07/26/18 09:30 70 148/65 07/26/18 09:00 Room Air 07/26/18 08:12 99 Nasal Cannula 2.0 28 07/26/18 08:12 Nasal Cannula 2.0 28 07/26/18 08:00 98.1 68 18 97 68 07/26/18 04:00 97.7 68 20 108/67 97 Nasal Cannula 07/26/18 00:00 98.0 71 18 137/71 100 Nasal Cannula 07/25/18 21:00 Nasal Cannula 2.0 07/25/18 20:28 99 Nasal Cannula 2.0 28 07/25/18 20:28 Nasal Cannula 2.0 28 07/25/18 20:00 98.3 67 20 129/65 99 Nasal Cannula 2.0 07/25/18 17:55 63 131/70 07/25/18 16:00 97.6 63 18 131/70 99 Nasal Cannula 2.0 07/25/18 12:00 97.3 57 18 149/65 95 Nasal Cannula 2.0 Height (Feet): 5 Height (Inches): 6.00 Weight (Pounds): 154 Respiratory/Chest: lungs clear Cardiovascular: normal rate, regular rhythm, no gallop/murmur Abdomen: soft, non tender Extremities: no edema Laboratory Tests Test 07/26/18 06:00 Sodium Level 139 MMOL/L (136-145) Potassium Level 3.4 MMOL/L (3.5-5.1) L Chloride Level 104 MMOL/L (98-107) Carbon Dioxide Level 30 MMOL/L (21-32) Anion Gap 5 mmol/L (5-15) Blood Urea Nitrogen 9 mg/dL (7-18) Creatinine 0.5 MG/DL (0.55-1.30) L Estimat Glomerular Filtration Rate mL/min (>60) Glucose Level 145 MG/DL (74-106) H Calcium Level 8.4 MG/DL (8.5-10.1) L Total Bilirubin 0.4 MG/DL (0.2-1.0) Aspartate Amino Transf (AST/SGOT) 33 U/L (15-37) Alanine Aminotransferase (ALT/SGPT) 19 U/L (12-78) Alkaline Phosphatase 129 U/L (46-116) H Total Protein 5.1 G/DL (6.4-8.2) L Albumin 2.0 G/DL (3.4-5.0) L Globulin 3.1 g/dL Albumin/Globulin Ratio 0.6 (1.0-2.7) L Current Medications Medications (Trade) Dose Ordered Sig/Sukhi Route PRN Reason Start Time Stop Time Status Last Admin Dose Admin Amiodarone HCl (Cordarone) 200 mg BID ORAL 07/25/18 09:00 08/24/18 08:59 07/26/18 09:31 Amlodipine Besylate (Norvasc) 5 mg BID ORAL 07/25/18 09:00 08/24/18 08:59 07/26/18 09:30 Ascorbic Acid (Vitamin C) 500 mg DAILY ORAL 07/25/18 09:00 08/24/18 08:59 07/26/18 09:31 Aspirin (Ecotrin) 81 mg DAILY ORAL 07/25/18 09:00 08/24/18 08:59 07/26/18 09:29 Atenolol (Tenormin) 50 mg DAILY ORAL 07/25/18 09:00 08/24/18 08:59 07/26/18 09:30 Atorvastatin Calcium (Lipitor) 20 mg BEDTIME ORAL 07/24/18 21:00 08/23/18 20:59 07/25/18 20:32 Bisacodyl (Dulcolax) 5 mg DAILYPRN PRN ORAL Constipation 07/25/18 09:30 08/24/18 09:29 Clonidine HCl (Catapres Tab) 0.1 mg Q4H PRN ORAL For High Blood Pressure 07/24/18 19:30 08/23/18 19:29 07/25/18 05:30 Docusate Sodium (Colace) 100 mg EVERY 12 HOURS ORAL 07/24/18 21:00 08/23/18 20:59 07/26/18 09:31 Fluconazole (Diflucan) 100 mg DAILY ORAL 07/25/18 09:00 07/26/18 12:00 07/26/18 09:31 Guaifenesin/ Dextromethorphan (Robitussin DM Syrup) 10 ml Q4H PRN ORAL For Cough 07/25/18 09:30 08/24/18 09:29 Heparin Sodium (Porcine) (Heparin 5000 units/ml) 5,000 units EVERY 12 HOURS SUBQ 07/24/18 21:00 08/23/18 20:59 07/25/18 20:34 Latanoprost (Xalatan) 1 drop BEDTIME BOTH EYES 07/24/18 21:00 08/23/18 20:59 07/25/18 20:34 Losartan Potassium (Cozaar) 100 mg DAILY ORAL 07/25/18 09:00 08/24/18 08:59 07/26/18 09:34 Magnesium Hydroxide (Mom) 30 ml HSPRN PRN ORAL Constipation 07/25/18 09:30 08/24/18 09:29 Multivitamins (Multivitamins) 1 tab DAILY ORAL 07/25/18 09:00 08/24/18 08:59 07/26/18 09:31 Tamsulosin HCl (Flomax) 0.4 mg BEDTIME ORAL 07/24/18 21:00 08/23/18 20:59 07/25/18 20:32 Vitamin D (Vitamin D) 5,000 intlu DAILY ORAL 07/25/18 09:00 08/24/18 08:59 07/25/18 09:42 Kathryn Howell MD Jul 26, 2018 10:36"
--- NOTE | 2018-07-26 11:51 | NUR ---
NURSE NOTES: Pt discharge orders to [facility]. Son Rodolfo Johansen phoned to be made aware of discharge. Report given to Sarah at [facility]. Photos taken of bilateral heels and sacral area. Pt breathing with nasal canula 2 liters. Incontinent of urine x 2. Belongings given. Pt has hearing aids in ears. Provided with belongings. Pt in stable condition. v/s T98.5, b/p 147/77, P 66 O2 sat on 2 liters 95%. Pt escorted by 2 undertaker assistant by barry. Packet provided with pt instructions to include SOB, pneumonia
--- NOTE | 2018-07-27 13:14 | Progress Note ---
DATE: 07/25/2018 CARDIOLOGY PROGRESS NOTE Late entry for 07/25/2018. SUBJECTIVE: The patient was seen and evaluated. Case was discussed with case management. The patient is less congested and has no respiratory distress. Blood pressure elevations noted and therapy added last night. Electrolyte abnormalities noted and replacement added as well. PHYSICAL EXAMINATION: VITAL SIGNS: Blood pressure 167/81, pulse 88, and respirations 20. LUNGS: Coarse breath sounds. Few rhonchi. HEART: Regular rhythm and rate. Normal S1 and S2. ABDOMEN: Soft. EXTREMITIES: Trace edema. LABORATORY DATA: White count 4.9 and hemoglobin 8.5. Potassium 3.4, BUN 9, creatinine 0.5, and magnesium yesterday 1.8. Albumin 2. IMPRESSION: 1. Hypokalemia. 2. Severe protein-calorie malnutrition. 3. Urinary tract infection and fungal sepsis, recovering. 4. Pneumonia, improved. 5. Hypertensive heart disease with improving blood pressure and recently advanced therapy. 6. Paroxysmal atrial fibrillation. 7. History of thoracic aortic aneurysm. 8. Not a surgical candidate. PLAN: 1. Now off antimicrobials. 2. Nutritional support. 3. Aspiration precautions. 4. Titrate antihypertensives. 5. Maintain current cardiovascular regimen without change. Ambika Crouch JOB#: [id number] CC:
--- NOTE | 2018-07-27 13:14 | Progress Note ---
DATE: 07/26/2018 CARDIOLOGY PROGRESS NOTE SUBJECTIVE: The patient is in no distress. She is off antimicrobials. OBJECTIVE: VITAL SIGNS: Blood pressure parameters have improved 108/67 to 148/65, heart rate 70, respiratory rate 18, and afebrile. Oxygen saturation on room air is 97%. NECK: Supple. LUNGS: Good breath sounds. No wheezing. HEART: Regular rhythm and rate. Normal S1 and S2. ABDOMEN: Soft. EXTREMITIES: No edema. IMPRESSION: 1. Hypertension, controlled. 2. No signs of acute congestive heart failure, stable cardiac rhythm. 3. History of atrial fibrillation. 4. Recovered sepsis with shock. 5. Recovered encephalopathy due to toxic and metabolic components, resolved. 6. Dehydration. 7. Hypernatremia. 8. Free water deficits. PLAN: The patient's long-term prognosis is poor. She is at high risk for recurring infections, but she is stable for transfer back to a detention facility. Zoran Caldwell M.D. DR: CHAITANYA JOB#: [id number] CC:
--- NOTE | 2018-07-27 16:58 | Discharge Summary ---
Discharge Summary Discharge Summary _ DATE OF ADMISSION: 07/17/2018 DATE OF DISCHARGE: 07/26/2018 DISCHARGED BY: Dr. Lars Rebolledo CONSULTANTS: Dr. Zoran Payne BRIEF HOSPITAL COURSE: Patient is an 88-year-old female, with history of atrial fibrillation, vertebral compression fractures, ischemic cardiomyopathy, peripheral vascular disease and CHF. She was transferred from a longterm facility due to complaints of shortness of breath. On evaluation in the emergency room, patient was noted to be wheezing and tachypneic. She was started on breathing treatments. She was given supplemental oxygen. She was given IV steroids. Blood pressure remained elevated. Blood work did not show any leukocytosis, hemoglobin 9.3, hematocrit 29, platelet 177. Troponin was 0.015. Natruretic peptide was 4700. EKG was in normal sinus rhythm. Chest x-ray showed pleural effusion on the right and consolidation on the left. She was admitted for for evaluation of shortness of breath, suspect secondary to asthma exacerbation, with some component of congestive heart failure. She was admitted to monitored bed She was given respiratory treatment. She was started empirically on antibiotics. He was placed on aspiration precautions. She was given cautious diuresis. ID and eight section blower were consulted. No anticoagulation per eight section blower due to patient's age and poor performance status. She was noted to have a sacral wound admission. Surgical evaluation was done. Patient had a deep tissue pressure injury on the sacrum extending down to the right and left lower buttocks with 2 openings on the right of sacral wound. She was given wound care. She was placed on APM/ANA PAULA mattress with frequent repositioning and offloading. She had poor nutritional status and was encouraged improved nutrition for proper wound healing. Urine culture showed growth of ESBL E. coli. Ceftriaxone was changed to Meropenem. Urine culture also grew yeast. She was started on fluconazole. Repeat chest x-ray done on 07/19/2018 showed an increased bilateral pleural fluid. She was given respiratory hygiene and was continued on maintenance dose of diuretic therapy. She was given antiplatelet therapy. She was planned on discharge on 07/24/2018, however, discharge was postponed as transportation would not take patient due to elevated BP. Norvasc was increased to 5 mg twice daily. She was continued on amiodarone 200 mg twice daily, losartan 100 mg and atenolol 50 mg daily. Blood pressure improved. She completed antibiotic treatment. She was eventually discharged back to [facility]. FINAL DIAGNOSES: Acute respiratory distress Pneumonia ESBL E. coli UTI/fungal UTI Sacral decubitus ulcer, present on admission Failure to thrive Hypokalemia Severe protein calorie malnutrition UTI and fungal sepsis, recovering Hypertensive heart disease Paroxysmal atrial fibrillation History of thoracic aortic aneurysm Hypertension Recovered encephalopathy due to toxic and metabolic components Dehydration Hypernatremia No signs of acute congestive heart failure, stable cardiac rhythm DISPOSITION: Patient was discharged to a SNF. DISCHARGE MEDICATIONS: Refer to Discharge Medication List. I have been assigned to complete a discharge summary on this account, I was not involved with the patient's management. Radha Kasper NP Jul 27, 2018 16:58
== END 2018-07-26 11:50 | DRG 193 ==
LOC: EDBD 06:11 → EMR 06:35 → EDBEDREQ 06:47 → 2W 06:49 → EDBEDREQ 07:23 → EDBEDREQSVC 07:23 → EDBEDREQ 10:27 → 2W 16:48 → 4E 07-23 18:53 → UNDODISIN 07-24 18:54
PROC: 5A09357 Assistance with Respiratory Ventilation, Less than 24 Consecutive Hours, Continuous Positive Airway Pressure (ICD-10-PCS; principal; 2018-07-17)
DX: J18.9 Pneumonia, unspecified organism (principal); I50.33 Acute on chronic diastolic (congestive) heart failure; E43 Unspecified severe protein-calorie malnutrition; G92 Toxic encephalopathy; J45.901 Unspecified asthma with (acute) exacerbation; B37.41 Candidal cystitis and urethritis; E87.0 Hyperosmolality and hypernatremia; I16.0 Hypertensive urgency; I11.0 Hypertensive heart disease with heart failure; L89.159 Pressure ulcer of sacral region, unspecified stage; I25.5 Ischemic cardiomyopathy; R62.7 Adult failure to thrive; D64.9 Anemia, unspecified; E86.0 Dehydration; E87.6 Hypokalemia; I48.0 Paroxysmal atrial fibrillation; M81.0 Age-related osteoporosis without current pathological fracture; M19.90 Unspecified osteoarthritis, unspecified site; I71.2 Thoracic aortic aneurysm, without rupture; I73.9 Peripheral vascular disease, unspecified; E78.5 Hyperlipidemia, unspecified; B96.20 Unspecified Escherichia coli [E. coli] as the cause of diseases classified elsewhere; Z68.24 Body mass index [BMI] 24.0-24.9, adult; Z16.12 Extended spectrum beta lactamase (ESBL) resistance
CPT/HCPCS: 36415; 36600; 71045; 80053; 81003; 82803; 83605; 83690; 83735; 83880; 84443; 84484; 85007; 85025; 87040; 87070; 87081; 87086; 87181; 87205; 93005; 94640; 94660; 94664; 94760; 96365; 96368; 96375; 99291; J7620; J8499